=== PATIENT | male | born 1935 | race Caucasian/White ===

== ENCOUNTER → 2016-02-21 | Outpatient (CLI) | payer MEDICARE ==
[~2016-02-21] MED LIST: AC325T; AMLO10TA PO; ASP325T PO; CARV3.122 PO; DCS100C PO; FLUT16SP22 NS; FOLI0.8T PO; LRT10T PO; OMEP20CA12 PO; OMEP20CA6; ROFL500T PO; RT-ALBUINH IH; TIOT18CA IH
[2016-02-21 10:14] LABS: BASOPHILS % (AUTO) 0 % (0-10); EOSINOPHILS # (AUTO) 0.1 10^3/uL (0.0-0.3); EOSINOPHILS % (AUTO) 1 % (0-10); LYMPHOCYTES # (AUTO) 1.4 X 10^3 (1.0-4.0); LYMPHOCYTES % (AUTO) 7 % (12-44); MEAN CORPUSCULAR HEMOGLOBIN 32 PG (25-34); MEAN CORPUSCULAR HGB CONC 34 G/DL (32-36); MEAN CORPUSCULAR VOLUME 94 FL (80-99); MEAN PLATELET VOLUME 7.9 FL (7.4-10.4); MONOCYTES # (AUTO) 1.2 X 10^3 (0.0-1.0); MONOCYTES % (AUTO) 6 % (0-12); NEUTROPHILS # (AUTO) 17.2 X 10^3 (1.8-7.8); NEUTROPHILS % (AUTO) 86 % (42-75); PLATELET COUNT 373 10^3/uL (130-400); RED BLOOD COUNT 3.96 10^6/uL (4.35-5.85); RED CELL DISTRIBUTION WIDTH 12.8 % (10.0-14.5); WHITE BLOOD COUNT 19.9 10^3/uL (4.3-11.0)
[2016-02-21 10:27] LABS: BILIRUBIN,URINE NEGATIVE (NEGATIVE); KETONES,URINE NEGATIVE (NEGATIVE); LEUKOCYTE ESTERASE ,URINE NEGATIVE (NEGATIVE); NITRITE,URINE NEGATIVE (NEGATIVE); PH,URINE 6 (5-9); PROTEIN,URINE 1+ (NEGATIVE); UROBILINOGEN,URINE 1 MG/DL (NORMAL)
[2016-02-21 10:29] LABS: BAND NEUTROPHILS 1 %; BASOPHILS % (MANUAL) 0 %; EOSINOPHILS % (MANUAL) 0 %; LYMPHOCYTES % (MANUAL) 6 %; NEUTROPHILS % (MANUAL) 87 %
--- NOTE | 2016-02-21 10:29 | Diagnostic Imaging Report ---
INDICATION: Cough and shortness of breath. EXAMINATION: PA and lateral chest. FINDINGS: The heart size and pulmonary vascularity are normal. There is a wedge-shaped infiltrate in the left retrocardiac space. IMPRESSION: Wedge-shaped infiltrate in the posterior basal segment of the left lower lobe, suspicious for pneumonia. Dictated by: Dictated on workstation # [id number]
[2016-02-21 10:34] LABS: ALANINE AMINOTRANSFERASE 13 U/L (0-55); ALBUMIN 3.7 G/DL (3.2-4.5); ANION GAP 8 MMOL/L (5-14); ASPARTATE AMINO TRANSFERASE 11 U/L (5-34); BILIRUBIN,TOTAL 0.7 MG/DL (0.1-1.0); BLOOD UREA NITROGEN 16 MG/DL (7-18); BUN/CREATININE RATIO 18; CARBON DIOXIDE 27 MMOL/L (21-32); CHLORIDE 96 MMOL/L (98-107); GFR ESTIMATED > 60; GLUCOSE 104 MG/DL (70-105); SODIUM 131 MMOL/L (135-145); TOTAL PROTEIN 6.7 G/DL (6.4-8.2)
[2016-02-21 10:53] LABS: THYROID STIMULATING HORMONE 2.45 UIU/ML (0.35-4.94)
== END ==
LOC: RAD 09:41
PROVIDERS: ATTEND Nurse Practitioner Family
DX: I10 Essential (primary) hypertension (principal); R41.0 Disorientation, unspecified; R44.3 Hallucinations, unspecified
CPT/HCPCS: 36415; 71020; 80053; 81000; 84443; 85007; 85025; 85027

== ENCOUNTER → 2016-03-03 | Outpatient (CLI) | payer MEDICARE ==
[~2016-03-03] MED LIST changes: +CATHETER FLUSH 10 ML SYR IV PRN; +IOHEXOL 350 MG/ML 100 ML (OMNIPAQUE 350) VIAL IV ONE; +NS 100 ML (IVPB) BAG IV ONE
--- NOTE | 2016-03-03 11:22 | Diagnostic Imaging Report ---
CT scan of the head and neck performed without and with intravenous contrast. INDICATION: COPD. Confusion. 100 mL Omnipaque 350 administered intravenously. FINDINGS: CT head: The unenhanced phase demonstrates no intracranial hemorrhage. There is periventricular and deep white matter hypodensities compatible with chronic microvascular ischemic changes. No hydrocephalus. After contrast administration, no enhancing mass is seen. The calvarium appears grossly unremarkable. CT scan of the neck: There is a prominent calcified plaque seen in the carotid bifurcation and in the internal carotid arteries bilaterally. No significant stenosis on the left. There is suggestion of estimated 70% stenosis in the proximal right internal carotid artery about 2 cm from the bifurcation. This is not a CTA protocol exam, and correlation with carotid ultrasound might be helpful. The vertebral arteries are opacified on both sides with no obvious abnormalities. There are slight asymmetries in the buccopharyngeal space probably related to secretions with no definite mass seen. The vocal cords appear symmetric. There is normal appearance of the parotid and submandibular glands. The thyroid gland appears normal. There is no significant lymphadenopathy or mass along the cervical chain bilaterally. The osseous structures demonstrate mild degenerative changes in the cervical spine. The visualized paranasal sinuses appear grossly unremarkable. IMPRESSION: CT head: No intracranial hemorrhage. No enhancing mass. CT neck: 1. Suggestion of approximately 70% stenosis in the proximal right internal carotid artery. 2. No soft tissue mass or significantly enlarged lymph node seen. Dictated by: Dictated on workstation # [id number]
--- NOTE | 2016-03-03 13:03 | Diagnostic Imaging Report ---
PROCEDURE: CT chest with contrast only. TECHNIQUE: Multiple contiguous axial images were obtained through the chest after administration of intravenous contrast. INDICATION: COPD. Confusion. History of throat cancer. COMPARISON: CT chest of 09/23/2012. FINDINGS: There is upper lobe predominant emphysema. There is mild subsegmental consolidation seen in the left lower lobe in the dependent area favored to be atelectasis related. No suspicious nodule or lung mass is identified. Subpleural blebs are seen in the upper lobes. There is no pleural or pericardial effusion. The thoracic aorta is slightly ectatic with atherosclerotic changes. No aneurysm. No dissection. No mediastinal mass or significantly enlarged lymph nodes seen. No pericardial effusion. No axillary lymphadenopathy. Sections in the upper abdomen demonstrate a right adrenal mass measuring 3.7 x 4.9 cm slightly enlarged from 4.4 x 3.8 cm 09/23/2012. The minimal enlargement from 2013 exam is in favor of a benign etiology such as an atypical adenoma or pheochromocytoma. Indolent low-grade malignancy could be considered. The osseous structures appear grossly unremarkable. IMPRESSION: 1. Emphysema. Subsegmental focal consolidation in the left lower lobe is favored to be atelectasis related. 2. A 4.9 cm right adrenal mass enlarged from 2013 with measurement of 4.4 cm. The slow enlargement is in favor of benign etiology such as atypically large adenoma or pheochromocytoma. Indolent low-grade malignancy could be considered. Dictated by: Dictated on workstation # [id number]
== END ==
LOC: RAD 07:46
PROVIDERS: ATTEND Nurse Practitioner Family
DX: J44.9 Chronic obstructive pulmonary disease, unspecified (principal); R41.0 Disorientation, unspecified; I65.21 Occlusion and stenosis of right carotid artery; E27.9 Disorder of adrenal gland, unspecified
CPT/HCPCS: 70470; 70491; 71260

== ENCOUNTER → 2016-03-09 | Outpatient (CLI) | payer MEDICARE ==
[~2016-03-09] MED LIST changes: -CATHETER FLUSH 10 ML SYR IV PRN; -IOHEXOL 350 MG/ML 100 ML (OMNIPAQUE 350) VIAL IV ONE; -NS 100 ML (IVPB) BAG IV ONE
--- NOTE | 2016-03-09 15:39 | Diagnostic Imaging Report ---
PROCEDURE: US Carotid Duplex Bilateral. TECHNIQUE: Multiple real-time grayscale images were obtained over the carotid arteries in various projections bilaterally. Additional duplex Doppler and color Doppler images were also obtained. INDICATION: Carotid artery disease. FINDINGS: There are no prior carotid Doppler examinations available for comparison. However, the recent CT neck exam of 03/03/2016 did suggest 70% stenosis of the origin of the internal carotid artery on the right. On this study however, there does not appear to be hemodynamically significant stenosis of the origin of the internal carotid artery on the right. There does seem to be narrowing of the midportion of the internal carotid artery on the right but the flow velocities do not indicate a hemodynamically significant stenosis in this region. The flow velocities are as follows: Mid CCA right 202.2, left 109. Proximal ICA right 151, left 58.4. Mid ICA right 120, left 88.4. Distal ICA right 78.8, left 113. ICA/CCA right 0.75, left 1.0. Both vertebral arteries were identified and there was antegrade flow bilaterally. IMPRESSION: 1. There is atherosclerotic disease involving both carotid systems but there is no sign of a hemodynamically significant stenosis. In particular, there is no evidence for a stenosis of the internal carotid artery on the right which would coincide with the findings of the recent CT neck exam. Even so, I would concur with the findings of the CT neck exam that there is heavy hard plaque formation about the carotid bifurcation on the right. If clinical concern regarding a hemodynamically significant stenosis of the right internal carotid artery persists, then a conventional arteriogram should be considered for further study. 2. There is no sign of a hemodynamically significant stenosis of the left carotid system. 3. These results were discussed with YOGI Torres. Dictated by: Dictated on workstation # [id number]
== END ==
LOC: RAD 14:06
PROVIDERS: ATTEND Nurse Practitioner Family
DX: I65.23 Occlusion and stenosis of bilateral carotid arteries (principal)
CPT/HCPCS: 93880

== ENCOUNTER 2016-08-07 20:40 | Inpatient (IN) | payer MEDICARE ==
[~2016-08-07] VITALS: Ht 172.7 cm; Wt 63.5 kg
[~2016-08-07 20:40] MED LIST changes: +ACET-93 PO; +ALBU18HF2 INH; +AMLO5TAB2 PO; +AZIT250T12 PO; +BISA-65 PO; +BUDE10.2 IH; +BUDE10.2 INH; +CEFD300C3 PO; +DONE5TAB8 PO; +DVL125C PO; +FURO-125 PO; +IPRA3AMP NEB; +LACT1TAB6 PO; +LACT20SO2 PO; +LORA0.5T PO; +MAG30ORA2 PO; +MELA1TAB10 PO; +MENT71OI TP; +MONT10TA21 PO; +PANT40SU PO; +POLY17PO6 PO; +TAMS0.4C98 PO; +TRAZ-28 PO; +TRAZ100T92 PO
[2016-08-07] MEDS ORDERED: DEXAMETHASONE PF 10 MG/ML (DECADRON) VIAL ONE (20:49)
[2016-08-07] MEDS ORDERED: RT-ALBUTEROL/IPRATROPIUM 3 ML (DUONEB) VIAL ONE (20:49)
[2016-08-07 21:00] LABS: BASOPHILS % (AUTO) 0 % (0-10); EOSINOPHILS % (AUTO) 0 % (0-10); LYMPHOCYTES # (AUTO) 0.3 X 10^3 (1.0-4.0); LYMPHOCYTES % (AUTO) 2 % (12-44); MEAN CORPUSCULAR HEMOGLOBIN 30 PG (25-34); MEAN CORPUSCULAR HGB CONC 34 G/DL (32-36); MEAN CORPUSCULAR VOLUME 89 FL (80-99); MEAN PLATELET VOLUME 8.3 FL (7.4-10.4); MONOCYTES % (AUTO) 6 % (0-12); NEUTROPHILS # (AUTO) 17.6 X 10^3 (1.8-7.8); NEUTROPHILS % (AUTO) 92 % (42-75); PLATELET COUNT 431 10^3/uL (130-400); RED BLOOD COUNT 3.09 10^6/uL (4.35-5.85); RED CELL DISTRIBUTION WIDTH 13.6 % (10.0-14.5); WHITE BLOOD COUNT 19.1 10^3/uL (4.3-11.0)
[2016-08-07] MEDS ORDERED: RT-ALBUTEROL/IPRATROPIUM 3 ML (DUONEB) VIAL INH ONE (21:00)
[2016-08-07] MEDS ORDERED: DEXAMETHASONE 4 MG/ML SDV (DECADRON) IH ONE (21:00)
[2016-08-07] MEDS ORDERED: methylPREDNISolone 125 MG (Solu-MEDROL) VIAL IVP ONE (21:00)
[2016-08-07 21:01] LABS: MONOCYTES # (AUTO) 1.2 X 10^3 (0.0-1.0)
[2016-08-07 21:09] LABS: INR 1.2 (0.8-1.4); PROTHROMBIN TIME PATIENT 14.5 SEC (12.2-14.7)
[2016-08-07 21:12] LABS: ABG BASE EXCESS 1.2 MMOL/L (-2.5-2.5); ABG HCO3 24 MMOL/L (23-27); ABG OXYGEN SATURATION 95 % (94-100); ABG PCO2 29 MMHG (35-45); ABG PH 7.52 (7.37-7.43); ABG PO2 68 MMHG (79-93); ABG TCO2 24.9 MMOL/L (21.0-31.0)
[2016-08-07 21:13] LABS: ALLENS TEST YES-POS; PATIENT TEMP 97.6
--- NOTE | 2016-08-07 21:14 | ED Respiratory ---
General Chief Complaint: Respiratory Problems Stated Complaint: SOA Nursing Triage Note: SOA Source: patient (PT IS LIMITED HISTORIAN--HAS HISTORY OF DEMENTIA), EMS, old records History of Present Illness Time seen by provider: 20:49 Initial Comments PT ARRIVES VIA EMS [facility] C/O SHORTNESS OF BREATH PT HAS HISTORY OF CHF AND COPD, AND HAD OUTPATIENT CXR TODAY, AND LASIX WAS INCREASED TO 40 MG, AND POTASSIUM WAS INCREASED TO 40 MG PT DENIES CHEST PAIN DENIES LEG SWELLING NO KNOWN FEVER NO SIGNIFICANT COUGH PT WAS ADMITTED 07/29-08/02 FOR CHF AND PNEUMONIA EMS REPORT THAT INITIAL O2 SAT WAS 88%, AND [facility] RESPONDERS PLACED ON 15L/NRB AND O2 SAT UP TO 93%, EMS PLACED PT ON CPAP AND O2 SAT UP TO 99% PT STATES BREATHING IS BETTER WITH CPAP PCP: DR. HARKINS Allergies and Home Medications Allergies Coded Allergies: prednisone (Unverified Allergy, Mild, SOB, 09/15/08) Home Medications Acetaminophen 500 Mg Tablet, 500 MG PO BID PRN for PAIN-MILD, (Reported) Acetaminophen 500 Mg Tablet, 1,000 MG PO Q8H PRN for TEMP<100.5/SEVERE PAIN, ( Reported) Albuterol Sulfate 18 Gm Hfa.aer.ad, 2 PUFF INH QID PRN for SHORTNESS OF BREATH, (Reported) Amlodipine Besylate 5 Mg Tablet, 5 MG PO BID, (Reported) Aspirin 325 Mg Tab, 325 MG PO DAILY, (Reported) Azithromycin 250 Mg Tablet, 250 MG PO DAILY, #4 Prescribed by: KEVIN HARKINS on 08/02/16913 Bisacodyl 5 Mg Tablet.dr, 5 MG PO HS PRN for CONSTIPATION-4TH LINE, (Reported) Budesonide/Formoterol Fumarate 10.2 Gm Hfa.aer.ad, 2 PUFF IH BID for 30 Days, #1 Prescribed by: KEVIN HARKINS on 08/02/16913 Carvedilol 3.125 Mg Tablet, 3.125 MG PO BID, (Reported) Cefdinir 300 Mg Capsule, 300 MG PO BID for 5 Days, #10 Prescribed by: KEVIN HARKINS on 08/02/1614 Divalproex Sodium 125 Mg Cap, 125 MG PO Q6H PRN for AGITATION, (Reported) Donepezil HCl 5 Mg Tablet, 5 MG PO DAILY, (Reported) Furosemide 20 Mg Tablet, 20 MG PO UD for 30 Days, #30 PT TO TAKE LASIX THREE TIMES A WEEK - SUNDAY, SUNDAY, SUNDAY SCHEDULED Prescribed by: KEVIN HARKINS on 08/02/16 0914 Ipratropium/Albuterol Sulfate 3 Ml Ampul.neb, 3 ML IH Q12H, (Reported) Lactobacillus Acidophilus 1 Each Tab.chew, 1 EACH PO TID for 10 Days, #30 Prescribed by: KEVIN HARKINS on 08/02/16 0919 Lactulose 20 Gm/30 Ml Solution, 20 GM PO BID, (Reported) Lorazepam 0.5 Mg Tablet, 0.5 MG PO Q4H PRN for MILD AGITATION, (Reported) Lorazepam 0.5 Mg Tablet, 1 MG PO Q4H PRN for SEVERE AGITATION/AGGRESSIVE, ( Reported) TAKES 2 (0.5MG) TABLETS Mag Hydrox/Al Hydrox/Simeth 30 Ml Oral.susp, 30 ML PO Q4H PRN for INDIGESTION, ( Reported) Melatonin/Pyridoxine 1 Each Tablet, 6 MG PO HS, (Reported) TAKES 2 (3MG) TABLETS Menthol/Lanolin/Calamine/Znox 71 Gm Oint, TP QID PRN for EXCORIATION, (Reported) Montelukast Sodium 10 Mg Tablet, 10 MG PO DAILY, (Reported) Pantoprazole Sodium 40 Mg Granpkt.dr, 40 MG PO DAILY, (Reported) Polyethylene Glycol 3350 17 Gm Powd.pack, 17 GM PO Q3H PRN for CONSTIPATION-2ND LINE, (Reported) Tamsulosin HCl 0.4 Mg Cap, 0.4 MG PO 1800, (Reported) Trazodone HCl 50 Mg Tablet, 125 MG PO HS, (Reported) TAKES 2 & 1/2 (50MG) TABLETS Constitutional: see HPI Respiratory: see HPI, short of breath Cardiovascular: No chest pain, No edema Gastrointestinal: no symptoms reported Musculoskeletal: no symptoms reported Skin: no symptoms reported Psychiatric/Neurological: See HPI (DEMENTIA) Hematologic/Lymphatic: No Symptoms Reported Past Faklmgx-Pohtfa-Tlhkrz Hx Patient Social History Alcohol Use: Denies Use Recreational Drug Use: No Smoking Status: Former Smoker Type Used: Cigarettes 2nd Hand Smoke Exposure: No Recent Foreign Travel: No Contact w/Someone Who Travel: No Recent Infectious Disease Expo: No Recent Hopitalizations: No Immunizations Up To Date Tetanus Booster (TDap): Unknown Date of Pneumonia Vaccine: Nov 11, 2009 Date of Influenza Vaccine: Dec 28, 2012 Seasonal Allergies Seasonal Allergies: Yes Surgeries HX Surgeries: Yes (HERNIA REPAIR; SKIN CANCER REMOVALS) Surgeries: Abdominal, Gallbladder Respiratory Hx Respiratory Disorders: Yes (CHRONIC COUGH) Respiratory Disorders: COPD Cardiovascular Hx Cardiac Disorders: Yes (CHF) Cardiac Disorders: High Cholesterol, Hypertension, Syncope Neurological Hx Neurological Disorders: Yes (seizure in past, syncope) Neurological Disorders: Dementia, Seizure Disorder Reproductive System Hx Reproductive Disorders: No Sexually Transmitted Disease: No Genitourinary Hx Genitourinary Disorders: No Gastrointestinal Hx Gastrointestinal Disorders: Yes (gall bladder removed) Gastrointestinal Disorders: Gastroesophageal Reflux, Chronic Constipation Musculoskeletal Hx Musculoskeletal Disorders: Yes (fractured rib) Endocrine Hx Endocrine Disorders: No HEENT HX ENT Disorders: Yes HEENT Disorders: Cataract Loss of Vision: Denies Cancer Hx Cancer: Yes (throat) Cancer: Skin Psychosocial Hx Psychiatric Problems: Yes Behavioral Health Disorders: Sleep Difficulties, Anxiety Integumentary HX Skin/Integumentary Disorder: Yes (skin cancer lesions-several removed) Blood Transfusions Hx Blood Disorders: No Family Medical History Family Medial History: Cancer 03 FATHER (lung cancer) grandfather (possibly stomach cancer) Family history: Cardiovascular disease 09 BROTHER Family history: Hypertension 09 BROTHER Heart disease 09 BROTHER Myocardial infarction 09 BROTHER No Family History of: Abdominal aortic aneurysm Joaquin's disease Alcoholism Aphasia Cancer of colon Cataract Chest pain Congenital heart disease Congestive heart failure Cystic fibrosis Dementia Dysphagia Family history: Allergy Family history: Alzheimer's disease Family history: Arthritis Family history: Asthma Family history: Breast disease Family history: Coronary thrombosis Family history: Diabetes mellitus Family history: Gastrointestinal disease Family history: Glaucoma Family history: Osteoporosis Family history: Thyroid disorder Hearing loss Hereditary disease History of - anemia History of - disorder History of - respiratory disease History of drug abuse Human immunodeficiency virus (HIV) seropositivity Hypercholesterolemia Infertile Kidney disease Malignant neoplasm of lung Parkinson's disease Prostate cancer Psychotic disorder Seizure disorder Stroke Tuberculosis Visual impairment Physical Exam Vital Signs Vital Sign - Last 12Hours 08/07/16 08/07/16 08/07/16 20:45 20:55 21:06 Temp 97.6 Pulse 81 Resp 32 B/P (MAP) 114/43 Pulse Ox 95 O2 Delivery Bi-pap O2 Flow Rate 45.00 FiO2 45 Capillary Refill : Less Than 3 Seconds General Appearance: WD/WN, no apparent distress, other (CPAP IN PLACE ON ARRIVAL) Neck: normal inspection Respiratory: no respiratory distress, no accessory muscle use, decreased breath sounds (LUNG SOUNDS DIMINISHED IN ALL LUNG BANUELOS) Cardiovascular: regular rate, rhythm, no edema, no JVD, no murmur Gastrointestinal: non tender, soft Extremities: normal inspection, no pedal edema, no calf tenderness, normal capillary refill Neurologic/Psychiatric: 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 SOMEWHAT AGITATED--FAMILY REPORTS IS NORMAL FOR HIM AND IS AT NORMAL BASELINE. ) Skin: normal color, warm/dry Focused Exam Lactic Acid Level Laboratory Tests Test 08/07/16 21:23 Lactic Acid Level 2.00 MMOL/L (0.50-2.00) Progress/Results/Core Measures Results/Orders Lab Results Laboratory Tests Test 08/07/16 20:50 08/07/16 21:05 08/07/16 21:23 Range/Units White Blood Count 19.1 H 4.3-11.0 10^3/uL Red Blood Count 3.09 L 4.35-5.85 10^6/uL Hemoglobin 9.4 L 13.3-17.7 G/DL Hematocrit 28 L 40-54 % Mean Corpuscular Volume 89 80-99 FL Mean Corpuscular Hemoglobin 30 25-34 PG Mean Corpuscular Hemoglobin Concent 34 32-36 G/DL Red Cell Distribution Width 13.6 10.0-14.5 % Platelet Count 431 H 130-400 10^3/uL Mean Platelet Volume 8.3 7.4-10.4 FL Neutrophils (%) (Auto) 92 H 42-75 % Lymphocytes (%) (Auto) 2 L 12-44 % Monocytes (%) (Auto) 6 0-12 % Eosinophils (%) (Auto) 0 0-10 % Basophils (%) (Auto) 0 0-10 % Neutrophils # (Auto) 17.6 H 1.8-7.8 X 10^3 Lymphocytes # (Auto) 0.3 L 1.0-4.0 X 10^3 Monocytes # (Auto) 1.2 H 0.0-1.0 X 10^3 Eosinophils # (Auto) 0.0 0.0-0.3 10^3/uL Basophils # (Auto) 0.0 0.0-0.1 10^3/uL Neutrophils % (Manual) 96 % Lymphocytes % (Manual) 2 % Monocytes % (Manual) 1 % Eosinophils % (Manual) 0 % Basophils % (Manual) 0 % Band Neutrophils 1 % Blood Morphology Comment NORMAL Prothrombin Time 14.5 12.2-14.7 SEC INR Comment 1.2 0.8-1.4 Activated Partial Thromboplast Time 30 24-35 SEC B-Type Natriuretic Peptide 367.1 H <100.0 PG/ML Blood Gas Puncture Site RT RADIAL Blood Gas Patient Temperature 97.6 Arterial Blood pH 7.52 H 7.37-7.43 Arterial Blood Partial Pressure CO2 29 L 35-45 MMHG Arterial Blood Partial Pressure O2 68 L 79-93 MMHG Arterial Blood HCO3 24 23-27 MMOL/L Arterial Blood Total CO2 24.9 21.0-31.0 MMOL/L Arterial Blood Oxygen Saturation 95 94-100 % Arterial Blood Base Excess 1.2 -2.5-2.5 MMOL/L [place] Test YES-POS Blood Gas Ventilator Setting NO Blood Gas Inspired Oxygen 45 BIPAP Sodium Level 128 L 135-145 MMOL/L Potassium Level 3.4 L 3.6-5.0 MMOL/L Chloride Level 94 L 98-107 MMOL/L Carbon Dioxide Level 21 21-32 MMOL/L Anion Gap 13 5-14 MMOL/L Blood Urea Nitrogen 20 H 7-18 MG/DL Creatinine 0.79 0.60-1.30 MG/DL Estimat Glomerular Filtration Rate > 60 BUN/Creatinine Ratio 25 H 0-20 Glucose Level 206 H 70-105 MG/DL Lactic Acid Level 2.00 0.50-2.00 MMOL/L Calcium Level 7.9 L 8.5-10.1 MG/DL Magnesium Level 1.8 1.8-2.4 MG/DL Total Bilirubin 0.6 0.1-1.0 MG/DL Aspartate Amino Transf (AST/SGOT) 25 5-34 U/L Alanine Aminotransferase (ALT/SGPT) 38 0-55 U/L Alkaline Phosphatase 80 40-136 U/L Total Creatine Kinase 59 30-200 U/L Creatine Kinase MB 2.0 <6.6 NG/ML Troponin I < 0.30 <0.30 NG/ML Total Protein 5.7 L 6.4-8.2 GM/DL Albumin 2.8 L 3.2-4.5 GM/DL My Orders Orders - CESARFAITH Laws DO Saline Lock/Iv-Start (08/07/16 20:53) Ekg Tracing (08/07/16 20:53) O2 (08/07/16 20:53) Monitor-Rhythm Ecg Trace Only (08/07/16 20:53) Arterial Blood Gas (08/07/16 20:53) BNP (08/07/16 20:53) Cbc With Automated Diff (08/07/16 20:53) Comprehensive Metabolic Panel (08/07/16 20:53) Creatine Kinase (08/07/16 20:53) Creatine Kinase Mb (08/07/16 20:53) Lactic Acid Analyzer (08/07/16 20:53) Magnesium (08/07/16 20:53) Protime With Inr (08/07/16 20:53) Partial Thromboplastin Time (08/07/16 20:53) Troponin I (08/07/16 20:53) Blood Culture (08/07/16 20:53) Chest 1 View, Ap/Pa Only (08/07/16 20:53) Albuterol/Ipra Inhalation Soln (Duoneb I (08/07/16 21:00) Dexamethasone Injection (Decadron Inject (08/07/16 21:00) Rt Request For Service (08/07/16 20:53) Svn Sm Volume Nebulizer Rt-Rfs (08/07/16 20:53) Methylprednisolone Sod Succ (Solu-Medrol (08/07/16 21:00) Dexamethasone Pf Injection (Decadron Pf (08/07/16 20:49) Albuterol/Ipra Inhalation Soln (Duoneb I (08/07/16 20:49) Manual Differential (08/07/16 20:50) Furosemide Injection (Lasix Injection) (08/07/16 21:30) Medications Given in ED Current Medications Medications Dose Ordered Sig/Jarrett Route Start Time Stop Time Status Last Admin Dose Admin Dexamethasone Sodium Phosphate 10 mg STK-MED ONCE .ROUTE 08/07/16 20:49 08/07/16 20:55 DC 08/07/16 21:05 30 MG Methylprednisolone Sodium Succinate 125 mg ONCE ONCE IVP 08/07/16 21:00 08/07/16 21:01 DC 08/07/16 21:08 125 MG Vital Signs/I&O Vital Sign - Last 12Hours 08/07/16 08/07/16 08/07/16 08/07/16 20:45 20:55 21:06 21:24 Temp 97.6 Pulse 81 81 74 Resp 32 26 25 B/P (MAP) 114/43 Pulse Ox 95 98 96 O2 Delivery Bi-pap Room Air O2 Flow Rate 45.00 45.00 FiO2 45 Blood Pressure Mean: 66 Progress Note : Progress Note PT PLACED ON BIPAP AND GIVEN NEB TREATMENT, ALSO GIVEN LASIX AND SOLU-MEDROL. AND O2 SATS REMAINED IN LOW 90'S BP AND HEART RATE REMAINED STABLE NO DETERIORATION IN PT'S CONDITION DURING ER STAY ECG Initial ECG Impression Time: 20:51 Initial ECG Rate: 82 Initial ECG Rhythm: Normal Sinus (IVCD) Initial ECG Comparisson: Unchanged Diagnostic Imaging Comments CXR--DIFFUSE BILATERAL EDEMA AND / OR INFILTRATES--PER RADIOLOGIST REPORT @ 2124 Reviewed: Reviewed by Me Departure Communication Family Conversation DISCUSSED POOR CONDITION/PROGNOSIS WITH FAMILY, AND THEY APPEAR TO UNDERSTAND. Progress Notes 2124--SPOKE WITH DR. HARKINS, ACCEPTS PT FOR ADMIT. Impression Impression: Primary Impression: Respiratory failure with hypoxia Additional Impressions: CHF (congestive heart failure) Pneumonia COPD (chronic obstructive pulmonary disease) Dementia Electrolyte imbalance Hyperglycemia Disposition: 09 ADMITTED INPATIENT Condition: Improved Decision to Admit Reason: Admit from ER (General) Decision to Admit/Date: Aug 07, 2016 Time/Decision to Admit Time: 21:25 Departure-Patient Inst. Referrals: KEVIN HARKINS MD (PCP/Family) Primary Care Physician FAITH GUERRERO DO Aug 07, 2016 21:14
[2016-08-07 21:18] LABS: BAND NEUTROPHILS 1 %; BASOPHILS % (MANUAL) 0 %; EOSINOPHILS % (MANUAL) 0 %; LYMPHOCYTES % (MANUAL) 2 %; NEUTROPHILS % (MANUAL) 96 %
--- NOTE | 2016-08-07 21:28 | Diagnostic Imaging Report ---
INDICATION: Shortness of air. COMPARISON: 07/31/16. FINDINGS: Development of diffuse bilateral heterogeneous consolidations which are superimposed on chronic interstitial changes. No pleural effusion or pneumothorax. Grossly stable cardiomediastinal silhouette. IMPRESSION: 1. Development of multifocal heterogeneous airspace opacities superimposed on chronic lung disease. Findings are likely due to multifocal pneumonia versus pulmonary edema, depending on the clinical scenario. Dictated by: Dictated on workstation # [id number]
[2016-08-07] MEDS ORDERED: FUROSEMIDE 40 MG/4 ML INJ (LASIX) IVP ONE (21:30)
[2016-08-07] MEDS ORDERED: cefTRIAXone INJECTION 1,000 MG in NS (IVPB) 50 ML IV ONE (21:45)
[2016-08-07 21:52] LABS: ALANINE AMINOTRANSFERASE 38 U/L (0-55); ALBUMIN 2.8 GM/DL (3.2-4.5); ANION GAP 13 MMOL/L (5-14); ASPARTATE AMINO TRANSFERASE 25 U/L (5-34); BILIRUBIN,TOTAL 0.6 MG/DL (0.1-1.0); BLOOD UREA NITROGEN 20 MG/DL (7-18); BUN/CREATININE RATIO 25 (0-20); CALCIUM 7.9 MG/DL (8.5-10.1); CARBON DIOXIDE 21 MMOL/L (21-32); CHLORIDE 94 MMOL/L (98-107); CREATINE KINASE 59 U/L (30-200); CREATININE SERUM 0.79 MG/DL (0.60-1.30); GFR ESTIMATED > 60; GLUCOSE 206 MG/DL (70-105); HEMOLYSIS 5 (-100-29); ICTERUS 0.5 (-100-1.9); LIPEMIA 0 (-100-49); MAGNESIUM 1.8 MG/DL (1.8-2.4); POTASSIUM 3.4 MMOL/L (3.6-5.0); SODIUM 128 MMOL/L (135-145); TOTAL PROTEIN 5.7 GM/DL (6.4-8.2)
[2016-08-07 21:59] LABS: TROPONIN I < 0.30 NG/ML (<0.30)
[2016-08-07 22:09] VITALS: BP 162/86
[2016-08-07 22:15] VITALS: BP 164/76
[2016-08-07 22:30] VITALS: BP 152/73
[2016-08-07] MEDS ORDERED: LEVOFLOXACIN 750 MG/D5W 150 ML PRE-MIX IV SCH (22:30)
[2016-08-07 22:45] VITALS: BP 150/70
[2016-08-07 23:00] VITALS: BP 117/67
[2016-08-07 23:15] VITALS: BP 114/82
[2016-08-08] VITALS (24 sets, daily range): BP systolic 102–166; BP diastolic 46–93
[2016-08-08] MEDS: RT-ALBUTEROL/IPRATROPIUM 3 ML (DUONEB) VIAL INH SCH ×6 (01:20→22:24)
[2016-08-08] MEDS ORDERED: FUROSEMIDE 40 MG/4 ML INJ (LASIX) IV SCH ×2 (03:00→21:00)
[2016-08-08] MEDS: methylPREDNISolone 125 MG (Solu-MEDROL) VIAL IV SCH ×3 (03:23→17:37)
[2016-08-08 04:26] LABS: BASOPHILS % (AUTO) 0 % (0-10); EOSINOPHILS % (AUTO) 0 % (0-10); LYMPHOCYTES # (AUTO) 0.8 X 10^3 (1.0-4.0); LYMPHOCYTES % (AUTO) 5 % (12-44); MEAN CORPUSCULAR HEMOGLOBIN 30 PG (25-34); MEAN CORPUSCULAR HGB CONC 34 G/DL (32-36); MEAN CORPUSCULAR VOLUME 89 FL (80-99); MEAN PLATELET VOLUME 8.5 FL (7.4-10.4); MONOCYTES # (AUTO) 0.3 X 10^3 (0.0-1.0); MONOCYTES % (AUTO) 2 % (0-12); NEUTROPHILS # (AUTO) 14.2 X 10^3 (1.8-7.8); NEUTROPHILS % (AUTO) 93 % (42-75); PLATELET COUNT 412 10^3/uL (130-400); RED BLOOD COUNT 3.18 10^6/uL (4.35-5.85); RED CELL DISTRIBUTION WIDTH 13.7 % (10.0-14.5); WHITE BLOOD COUNT 15.3 10^3/uL (4.3-11.0)
[2016-08-08 04:49] LABS: ALANINE AMINOTRANSFERASE 42 U/L (0-55); ALBUMIN 3.2 GM/DL (3.2-4.5); ANION GAP 16 MMOL/L (5-14); ASPARTATE AMINO TRANSFERASE 25 U/L (5-34); BILIRUBIN,TOTAL 0.9 MG/DL (0.1-1.0); BLOOD UREA NITROGEN 19 MG/DL (7-18); BUN/CREATININE RATIO 23 (0-20); CALCIUM 8.5 MG/DL (8.5-10.1); CARBON DIOXIDE 21 MMOL/L (21-32); CHLORIDE 94 MMOL/L (98-107); CREATININE SERUM 0.81 MG/DL (0.60-1.30); GFR ESTIMATED > 60; GLUCOSE 146 MG/DL (70-105); HEMOLYSIS 2 (-100-29); ICTERUS 0.7 (-100-1.9); LIPEMIA 3 (-100-49); SODIUM 131 MMOL/L (135-145); TOTAL PROTEIN 6.6 GM/DL (6.4-8.2)
[2016-08-08] MEDS ORDERED: KCL 20 MEQ TAB (K-DUR) PO ONE (07:00)
--- NOTE | 2016-08-08 08:37 | History & Physicial ---
History of Present Illness History of Present Illness Reason for visit/HPI PT IS AN 81 Y/O MALE WHO WAS RECENTLY ADMITTED TO THE HOSPITAL WITH HEART FAILURE. HE WAS AT HIS [facility] AND STARTED TO HAVE ACUTE SHORTNESS OF BREATH. HE WAS AFEBRILE, BUT HAD OXYGEN SATURATION IN THE 70'S AND WAS TRANSPORTED TO THE HOSPITAL FOR FURTHER EVALUATION. HE WAS FOUND TO HAVE HYPOXEMIA, HEART FAILURE AND WAS THUS RE-ADMITTED TO THE HOSPITAL Date of Admission Aug 07, 2016 at 21:25 Time Seen by Provider: 08:12 I consulted on this patient on 08/08/16 08:37 Attending Physician Kevin Grimes MD Admitting Physician Kevin Grimes MD Consult Allergies and Home Medications Allergies Coded Allergies: prednisone (Unverified Allergy, Mild, SOB, 09/15/08) Home Medications Acetaminophen 500 Mg Tablet, 500 MG PO BID PRN for PAIN-MILD, (Reported) Acetaminophen 500 Mg Tablet, 1,000 MG PO Q8H PRN for TEMP>100.5/SEVERE PAIN, ( Reported) Albuterol Sulfate 18 Gm Hfa.aer.ad, 2 PUFF INH QID PRN for SHORTNESS OF BREATH, (Reported) Amlodipine Besylate 5 Mg Tablet, 5 MG PO BID, (Reported) Aspirin 325 Mg Tab, 325 MG PO DAILY, (Reported) Bisacodyl 5 Mg Tablet.dr, 5 MG PO HS PRN for CONSTIPATION-4TH LINE, (Reported) Budesonide/Formoterol Fumarate 10.2 Gm Hfa.aer.ad, 2 PUFF IH BID, (Reported) Carvedilol 3.125 Mg Tablet, 3.125 MG PO BID, (Reported) Divalproex Sodium 125 Mg Cap, 125 MG PO Q6H PRN for AGITATION, (Reported) Donepezil HCl 5 Mg Tablet, 5 MG PO DAILY, (Reported) Furosemide 20 Mg Tablet, 20 MG PO MoWeFr, (Reported) Ipratropium/Albuterol Sulfate 3 Ml Ampul.neb, 3 ML NEB QID, (Reported) Ipratropium/Albuterol Sulfate 3 Ml Ampul.neb, 3 ML NEB Q6H PRN for SHORTNESS OF BREATH, (Reported) Lactobacillus Acidophilus 1 Each Capsule, 1 CAP PO TID for 10 Days, (Reported) END DATE 08-13-16 Lactulose 20 Gm/30 Ml Solution, 20 GM PO BID, (Reported) Lorazepam 0.5 Mg Tablet, 0.5 MG PO Q4H PRN for MILD AGITATION, (Reported) Lorazepam 0.5 Mg Tablet, 1 MG PO Q4H PRN for SEVERE AGITATION/AGGRESSIVE, ( Reported) TAKES 2 (0.5MG) TABLETS Mag Hydrox/Al Hydrox/Simeth 30 Ml Oral.susp, 30 ML PO Q4H PRN for INDIGESTION, ( Reported) Melatonin/Pyridoxine 1 Each Tablet, 6 MG PO HS, (Reported) TAKES 2 (3MG) TABLETS Menthol/Lanolin/Calamine/Znox 71 Gm Oint, TP QID PRN for EXCORIATION, (Reported) Montelukast Sodium 10 Mg Tablet, 10 MG PO DAILY, (Reported) Pantoprazole Sodium 40 Mg Tablet.dr, 40 MG PO DAILY, (Reported) Polyethylene Glycol 3350 17 Gm Powd.pack, 17 GM PO Q3H PRN for CONSTIPATION-2ND LINE, (Reported) Tamsulosin HCl 0.4 Mg Cap, 0.4 MG PO 1800, (Reported) Trazodone HCl 50 Mg Tablet, 125 MG PO HS, (Reported) TAKES 2 & 1/2 (50MG) TABLETS Past Veolmiq-Qxpnlf-Ardmoz Hx Patient Social History Marrital Status: Living Status: LIVES AT [facility] Alcohol Use: Denies Use Recreational Drug Use: No Smoking Status: Former Smoker Type Used: Cigarettes 2nd Hand Smoke Exposure: No Physical Abuse Screen: No Sexual Abuse: No Recent Foreign Travel: No Contact w/other who traveled: No Recent Hopitalizations: Yes Recent Infectious Disease Expo: No Immunizations Up To Date Tetanus Booster (TDap): Unknown Date of Pneumonia Vaccine: Nov 11, 2009 Date of Influenza Vaccine: Dec 28, 2012 Seasonal Allergies Seasonal Allergies: Yes Surgeries HX Surgeries: Yes (HERNIA REPAIR; SKIN CANCER REMOVALS) Surgeries: Abdominal, Gallbladder Respiratory Hx Respiratory Disorders: Yes (CHRONIC COUGH) Cardiovascular Hx Cardiovascular Disorders: Yes (CHF) Cardiac Disorders: High Cholesterol, Hypertension, Syncope Neurological Hx Neurological Disorders: Yes (seizure in past, syncope) Neurological Disorders: Dementia, Seizure Disorder Reproductive System Hx Reproductive Disorders: No Sexually Transmitted Disease: No Genitourinary Hx Genitourinary Disorders: No Gastrointestinal Hx Gastrointestinal Disorders: Yes (gall bladder removed) Gastrointestinal Disorders: Gastroesophageal Reflux, Chronic Constipation Musculoskeletal Hx Musculoskeletal Disorders: Yes (fractured rib) Endocrine Hx Endocrine Disorders: No HEENT HX ENT Disorders: Yes HEENT Disorders: Cataract Loss of Vision: Denies Cancer Hx Cancer: Yes (throat) Cancer: Lung, Skin Psychosocial Hx Psychiatric Problems: Yes Behavioral Health Disorders: Sleep Difficulties, Anxiety Integumentary HX Skin/Integumentary Disorder: Yes (skin cancer lesions-several removed) Blood Transfusions Hx Blood Disorders: No Adverse Reaction to a Blood Tr: No Reviewed Nursing Assessment Reviewed/Agree w Nursing PMH: Yes Family Medical History Significant Family History: Heart Disease, Cancer, Hypertension Family Hx: Cancer 03 FATHER (lung cancer) grandfather (possibly stomach cancer) Family history: Cardiovascular disease 09 BROTHER Family history: Hypertension 09 BROTHER Heart disease 09 BROTHER Myocardial infarction 09 BROTHER No Family History of: Abdominal aortic aneurysm Joaquin's disease Alcoholism Aphasia Cancer of colon Cataract Chest pain Congenital heart disease Congestive heart failure Cystic fibrosis Dementia Dysphagia Family history: Allergy Family history: Alzheimer's disease Family history: Arthritis Family history: Asthma Family history: Breast disease Family history: Coronary thrombosis Family history: Diabetes mellitus Family history: Gastrointestinal disease Family history: Glaucoma Family history: Osteoporosis Family history: Thyroid disorder Hearing loss Hereditary disease History of - anemia History of - disorder History of - respiratory disease History of drug abuse Human immunodeficiency virus (HIV) seropositivity Hypercholesterolemia Infertile Kidney disease Malignant neoplasm of lung Parkinson's disease Prostate cancer Psychotic disorder Seizure disorder Stroke Tuberculosis Visual impairment Constitutional: No chills, No fever, malaise, weakness EENTM: hoarseness (CHRONIC), No nose pain, No throat pain Respiratory: cough, dyspnea on exertion, short of breath Cardiovascular: No chest pain, edema, No palpitations Gastrointestinal: No abdominal pain Genitourinary: no symptoms reported Musculoskeletal: muscle weakness Skin: No change in color, No rash Psychiatric/Neurological: Denies Anxiety, Weakness, Other (DEMENTIA WITH BEHAVIORS) All Other Systems Reviewed Negative Unless Noted: Yes Physical Exam Vital Signs Vital Sign - Last 12Hours 08/07/16 08/07/16 08/07/16 20:45 20:55 21:06 Temp 97.6 Pulse 81 Resp 32 B/P (MAP) 114/43 Pulse Ox 95 O2 Delivery Bi-pap O2 Flow Rate 45.00 FiO2 45 Capillary Refill : Less Than 3 Seconds General Appearance: No Apparent Distress, WD/WN HEENT: PERRL/EOMI, Pharynx Normal Neck: Full Range of Motion, Supple Respiratory: Chest Non Tender, Crackles, Decreased Breath Sounds Cardiovascular: Regular Rate, Rhythm, Other (TRACE EDEMA BILATERAL LOWER LEGS) Gastrointestinal: Normal Bowel Sounds, No Organomegaly, No Pulsatile Mass, Non Tender, Soft Rectal: Deferred Back: Normal Inspection Extremity: Non Tender, No Calf Tenderness, Pedal Edema Neurologic/Psychiatric: Alert, Disoriented x3 Skin: Warm/Dry Assessment/Plan Assessment and Plan ACUTE PULMONARY EDEMA PNEUMONIA COPD ANEMIA CHF HX OF THROAT CANCER DEMENTIA WITH BEHAVIORS HYPOKALEMIA HYPOXEMIA HYPERTENSION CONSTIPATION POSSIBLE ILEUS BPH INSOMNIA PNEUMONIA WITH CHRONIC COPD - CHEST XRAY SHOWED PT HAS PNEUMONIA - CONTINUE WITH CURRENT ANTIBIOTICS CHF/PULMONARY EDEMA - CONTINUE WITH LASIX - MONITOR BNP TOMORROW. ANEMIA - - MONITOR CBC TOMORROW. HX OF THROAT CANCER- SUPPORTIVE CARE DEMENTIA WITH BEHAVIORS - CONTINUE WITH ARICEPT AND SUPPORTIVE CARE FOR THE PATIENT, HE WILL RETURN TO THE LONG TERM ON DISCHARGE. HYPOKALEMIA - TREAT WITH IV POTASSIUM SUPPLEMENTATION. HYPOXEMIA - IMPROVED ON CURRENT OXYGEN THERAPY - START INCENTIVE SPIROMETRY HYPERTENSION - CHRONIC - MONITOR BLOOD PRESSURE READINGS. RECENT CONSTIPATION - -MONITOR SYMPTOMS BPH - PT ON FLOMAX AT HOME, IN HOSPITAL ON ALFUZOSIN. INSOMNIA - ON MELATONIN PT NOT SEPTIC - THEREFORE DID NOT START ON SEPSIS PROTOCOL WITH FLUIDS - PT HAS ACUTE PULMONARY EDEMA AND STARTING ON IV FLUIDS AT SEPSIS PROTOCOL RATE WOULD HAVE CAUSED WORSENING PULMONARY EDEMA AND POSSIBLE PATIENT DEMISE. Problems: Admission Diagnosis PNEUMONIA COPD ANEMIA CHF HX OF THROAT CANCER DEMENTIA WITH BEHAVIORS HYPOKALEMIA HYPOXEMIA HYPERTENSION CONSTIPATION BPH INSOMNIA Clinical Quality Measures DVT/VTE Risk/Contraindication: Risk Factor Score Per Nursin RFS Level Per Nursing on Admit: 4+=Very High KEVIN GRIMES MD Aug 08, 2016 08:37
[2016-08-08] MEDS ORDERED: IPRA3AMP NEB (09:29)
[2016-08-08] MEDS ORDERED: PANT40TA3 PO (09:29)
[2016-08-08] MEDS ORDERED: LACT1CAP8 PO (09:29)
[2016-08-08] MEDS ORDERED: BUDE10.2 IH (09:29)
[2016-08-08] MEDS ORDERED: FURO20TA4 PO (09:34)
[2016-08-08] MEDS ORDERED: CALC-823 PO (09:37)
--- OUTSIDE RECORDS SUMMARY | 2016-08-08 09:39 | XMS REPORT | Continuity of Care Document ---
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 01/02/2012 Ot 285.9 ANEMIA NOS 07/07/2012 Ot 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 07/07/2012 Ot 285.9 ANEMIA NOS 03/28/2013 SHAHANA EUGENE, KEVIN Dixon Ot 305.1 TOBACCO USE DISORDER 03/28/2013 SHAHANA EUGENE, KEVIN Dixon Ot 401.9 HYPERTENSION NOS 03/28/2013 SHAHANA EUGENE, KEVIN Dixon Ot 477.9 ALLERGIC RHINITIS NOS 03/28/2013 SHAHANA EUGENE, KEVIN Dixon Ot 496 CHR AIRWAY OBSTRUCT NEC 03/28/2013 SHAHANA EUGENE, KEVIN Dixon Ot 530.81 ESOPHAGEAL REFLUX 06/30/2013 GIULIANO WRIGHT DO Ot 496 CHR AIRWAY OBSTRUCT NEC 10/29/2014 SAMIR SHERIDAN SUPERVISOR [employer] Ot 496 10/29/2014 SAMIR SHERIDAN SUPERVISOR [employer] Ot V10.20 10/29/2014 SAMIR SHERIDAN SUPERVISOR [employer] Ot V58.69 10/29/2014 SAMIR SHERIDAN SUPERVISOR [employer] Ot V67.1 10/29/2014 SAMIR SHERIDAN SUPERVISOR [employer] Ot V67.2 11/06/2014 SAMIR SHERIDAN SUPERVISOR [employer] Ot 496 11/06/2014 SAMIR SHERIDAN SUPERVISOR [employer] Ot V10.20 11/06/2014 SAMIR SHERIDAN SUPERVISOR [employer] Ot V58.69 11/06/2014 SAMIR SHERIDAN SUPERVISOR [employer] Ot V67.1 11/06/2014 SAMIR SHERIDAN SUPERVISOR [employer] Ot V67.2 10/28/2015 AME OWENS Ot J44.9 CHRONIC OBSTRUCTIVE PULMONARY DISEASE, U 10/28/2015 AME OWENS Charan Ot Z09 ENCNTR FOR F/U EXAM AFT TRTMT FOR COND O 10/28/2015 AME OWENS N Ot 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 10/28/2015 AME OWENS N Ot Z85.20 PERSONAL HISTORY OF MALIGNANT NEOPLASM O 11/19/2015 AME OWENS Charan Ot J44.9 CHRONIC OBSTRUCTIVE PULMONARY DISEASE, U 11/19/2015 AME OWENS Charan Ot Z09 ENCNTR FOR F/U EXAM AFT TRTMT FOR COND O 11/19/2015 AME OWENS N Ot Z79.899 OTHER MCC (CURRENT) DRUG THERAPY 11/19/2015 AME OWENS N Ot Z85.20 PERSONAL HISTORY OF MALIGNANT NEOPLASM O 01/18/2016 Ot 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.9 MALIGNANT CAT LARYNX NOS 01/18/2016 Ot 285.9 ANEMIA NOS 01/18/2016 Ot 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 01/18/2016 Ot 780.79 OTH MALAISE FATIGUE 01/18/2016 Ot 783.1 ABNORMAL WEIGHT GAIN 01/18/2016 Ot 786.2 COUGH 01/18/2016 Ot 401.9 HYPERTENSION NOS 01/18/2016 Ot 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 01/18/2016 Ot 433.10 CAROTID ARTERY OCCLUSION W O CEREBRAL IN 01/18/2016 Ot 492.0 EMPHYSEMATOUS BLEB 01/18/2016 Ot 786.2 COUGH 01/18/2016 SAMIR SHERIDAN SUPERVISOR [employer] Ot 161.0 MALIGNANT CTA GLOTTIS 01/18/2016 AME OWENS Charan Ot 496 CHR AIRWAY OBSTRUCT NEC 01/18/2016 AME OWENS Ot 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 01/18/2016 AME OWENS Charan Ot V58.69 OTH MED,LT,CURRENT USE 01/18/2016 AME OWENS Charan Ot V67.1 RADIOTHERAPY FOLLOW-UP 01/18/2016 AME OWENS Ot V67.2 CHEMOTHERAPY FOLLOW-UP 01/18/2016 SHERIDAN, HILAH S SUPERVISOR [employer] Ot 496 CHR AIRWAY OBSTRUCT NEC 01/18/2016 SAMIR SHERIDAN SUPERVISOR [employer] Ot 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 01/18/2016 SAMIR SHERIDAN SUPERVIS[employer] Ot V58.69 OTH MED,LT,CURRENT USE 01/18/2016 SAMIR SHERIDAN SUPERVISOR [employer] Ot V67.1 RADIOTHERAPY FOLLOW-UP 01/18/2016 SHERIDANSAMIR Lopez SUPERVISOR [employer] Ot V67.2 CHEMOTHERAPY FOLLOW-UP 01/18/2016 Ot 496 CHR AIRWAY OBSTRUCT NEC 01/18/2016 AME OWENS Charan Ot 496 CHR AIRWAY OBSTRUCT NEC 01/18/2016 AME OWENS Charan Ot 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 01/18/2016 AME OWENS Charan Ot V58.69 OTH MED,LT,CURRENT USE 01/18/2016 AME OWENS Charan Ot V67.1 RADIOTHERAPY FOLLOW-UP 01/18/2016 GRACIELAAME Ot V67.2 CHEMOTHERAPY FOLLOW-UP 01/18/2016 SAMIR SHERIDAN SUPERVISOR [employer] Ot 496 CHR AIRWAY OBSTRUCT NEC 01/18/2016 SAMIR SHERIDAN SUPERVISOR [employer]UC[employer] Ot 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 01/18/2016 SAMIR SHERIDAN SUPERVISOR [employer] Ot V58.69 OTH MED,LT,CURRENT USE 01/18/2016 SAMIR SHERIDAN SUPERVISOR [employer] Ot V67.1 RADIOTHERAPY FOLLOW-UP 01/18/2016 SHERIDANSAMIR Lopez SUPERVISOR [employer]UC[employer] Ot V67.2 CHEMOTHERAPY FOLLOW-UP 01/18/2016 AME OWENS Ot J44.9 CHRONIC OBSTRUCTIVE PULMONARY DISEASE, U 01/18/2016 AME OWENS Ot Z09 ENCNTR FOR F/U EXAM AFT TRTMT FOR COND O 01/18/2016 AME OWENS Ot Z79.899 OTHER MCC (CURRENT) DRUG THERAPY 01/18/2016 AME OWENS Ot Z85.20 PERSONAL HISTORY OF MALIGNANT NEOPLASM O 01/19/2016 JOSEPHINE JOHN Ot J44.9 CHRONIC OBSTRUCTIVE PULMONARY DISEASE , U 01/19/2016 JOSEPHINE JOHNP Ot R05 COUGH 02/10/2016 JOSEPHINE JOHNP Ot J44.9 CHRONIC OBSTRUCTIVE PULMONARY DISEASE , U 02/10/2016 DORA JOSEPHINE M SUPERVIS[employer] Ot R05 COUGH 02/22/2016 JOSEPHINE JOHN SUPERVISOR [employer] Ot J44.9 CHRONIC OBSTRUCTIVE PULMONARY DISEASE , U 02/22/2016 JOSEPHINE JOHN SUPERVIS[employer] Ot R05 COUGH 02/23/2016 JOSEPHINE JOHN SUPERVIS[employer] Ot I10 ESSENTIAL (PRIMARY) HYPERTENSION 02/23/2016 JOSEPHINE JOHN SUPERVIS[employer] Ot R41.0 DISORIENTATION, UNSPECIFIED 02/23/2016 JOSEPHINE JOHN SUPERVIS[employer] Ot R44.3 HALLUCINATIONS, UNSPECIFIED 02/27/2016 JOSEPHINE JOHN SUPERVISOR [employer] Ot I10 ESSENTIAL (PRIMARY) HYPERTENSION 02/27/2016 JOSEPHINE JOHN SUPERVISOR [employer] Ot R41.0 DISORIENTATION, UNSPECIFIED 02/27/2016 JOSEPHINE JOHN SUPERVISOR [employer] Ot R44.3 HALLUCINATIONS, UNSPECIFIED 03/08/2016 JOSEPHINE JOHN SUPERVIS[employer] Ot E27.9 DISORDER OF ADRENAL GLAND, UNSPECIFIED 03/08/2016 JOSEPHINE JOHN SUPERVIS[employer] Ot 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 03/08/2016 JOSEPHINE JOHN SUPERVISOR [employer] Ot J44.9 CHRONIC OBSTRUCTIVE PULMONARY DISEASE , U 03/08/2016 JOSEPHINE JOHN SUPERVISOR [employer] Ot R41.0 DISORIENTATION, UNSPECIFIED 03/09/2016 JOSEPHINE JOHN SUPERVISOR [employer] Ot 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 03/15/2016 JOSEPHINE JOHN SUPERVISOR [employer]UC[employer] Ot 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 03/29/2016 JOSEPHINE JOHN SUPERVISOR [employer]UCATION Ot E27.9 DISORDER OF ADRENAL GLAND, UNSPECIFIED 03/29/2016 JOSEPHINE JOHN SUPERVISOR [employer] EDUCATION Ot 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 03/29/2016 JOSEPHINE JOHN SUPERVISOR [employer] EDUCATION Ot J44.9 CHRONIC OBSTRUCTIVE PULMONARY DISEASE , U 03/29/2016 JOSEPHINE JOHN SUPERVISOR [employer]UCATION Ot R41.0 DISORIENTATION, UNSPECIFIED 04/04/2016 JOSEPHINE JOHN SUPERVISOR [employer] EDUCATION Ot I10 ESSENTIAL (PRIMARY) HYPERTENSION 04/04/2016 JOSEPHINE JOHN SUPERVISOR [employer] EDUCATION Ot R41.0 DISORIENTATION, UNSPECIFIED 04/04/2016 JOSEPHINE JOHN SUPERVISOR [employer]UCATION Ot R44.3 HALLUCINATIONS, UNSPECIFIED 04/04/2016 DORAANNETTASVITLANA Drew SUPERVISOR [employer] EDUCATION Ot 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 04/06/2016 DORAANNETTASVITLANA Drew SUPERVISOR [employer] EDUCATION Ot I10 ESSENTIAL (PRIMARY) HYPERTENSION 04/06/2016 DORA JOSEPHINE M SUPERVISOR [employer]UCATION Ot R41.0 DISORIENTATION, UNSPECIFIED 04/06/2016 DORAANNETTASVITLANA Drew SUPERVISOR [employer] EDUCATION Ot R44.3 HALLUCINATIONS, UNSPECIFIED 04/06/2016 DORA JOSEPHINE M SUPERVISOR [employer] EDUCATION Ot E27.9 DISORDER OF ADRENAL GLAND, UNSPECIFIED 04/06/2016 JOHNJOSEPHINE Viki SUPERVISOR [employer] EDUCATION Ot 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 04/06/2016 DORA JOSEPHINE M SUPERVISOR [employer] EDUCATION Ot J44.9 CHRONIC OBSTRUCTIVE PULMONARY DISEASE , U 04/06/2016 DORA JOSEPHINE M SUPERVISOR [employer]UCATION Ot R41.0 DISORIENTATION, UNSPECIFIED 04/06/2016 DORA JOSEPHINE M SUPERVISOR [employer] EDUCATION Ot 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 07/29/2016 Ot 786.2 COUGH 07/29/2016 Ot 401.9 HYPERTENSION NOS 07/29/2016 Ot 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 07/29/2016 Ot 433.10 CAROTID ARTERY OCCLUSION W O CEREBRAL IN 07/29/2016 Ot 492.0 EMPHYSEMATOUS BLEB 07/29/2016 Ot 786.2 COUGH 07/29/2016 SAMIR SHERIDAN SUPERVISOR [employer]UCATION Ot 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 07/29/2016 AME OWENS Ot 496 CHR AIRWAY OBSTRUCT NEC 07/29/2016 AME OWENS Ot 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 07/29/2016 AME OWENS Ot V58.69 OTH MED,LT,CURRENT USE 07/29/2016 AME OWENS Ot V67.1 RADIOTHERAPY FOLLOW-UP 07/29/2016 AME OWENS Ot V67.2 CHEMOTHERAPY FOLLOW-UP 07/29/2016 SAMIR SHERIDANP Ot 496 CHR AIRWAY OBSTRUCT NEC 07/29/2016 SAMIR SHERIDANP Ot 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 07/29/2016 SAMIR SHERIDANP Ot V58.69 OTH MED,LT,CURRENT USE 07/29/2016 SAMIR SHERIDAN SUPERVISOR [employer]UC[employer] Ot V67.1 RADIOTHERAPY FOLLOW-UP 07/29/2016 SHERIDANSAMIR Lopez SUPERVISOR [employer] EDUCATION Ot V67.2 CHEMOTHERAPY FOLLOW-UP 07/29/2016 Ot 496 CHR AIRWAY OBSTRUCT NEC 07/29/2016 AME OWENS Ot 496 CHR AIRWAY OBSTRUCT NEC 07/29/2016 AME OWENS Ot 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 07/29/2016 AME OWENS Ot V58.69 OTH MED,LT,CURRENT USE 07/29/2016 AME OWENS Ot V67.1 RADIOTHERAPY FOLLOW-UP 07/29/2016 AME OWENS Charan Ot V67.2 CHEMOTHERAPY FOLLOW-UP 07/29/2016 SAMIR SHERIDANP Ot 496 CHR AIRWAY OBSTRUCT NEC 07/29/2016 SHERIDANSAMIR SUPERVISOR [employer] EDUCATION Ot 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 07/29/2016 SHERIDANSAMIR Lopez SUPERVISOR [employer]UCATION Ot V58.69 OTH MED,LT,CURRENT USE 07/29/2016 SHERIDAN, PINGASCENCION Jessica SUPERVISOR [employer]UC[employer] Ot V67.1 RADIOTHERAPY FOLLOW-UP 07/29/2016 SAMIR SHERIDAN SUPERVISOR [employer]UC[employer] Ot V67.2 CHEMOTHERAPY FOLLOW-UP 07/29/2016 AME OWENS Charan Ot J44.9 CHRONIC OBSTRUCTIVE PULMONARY DISEASE, U 07/29/2016 AME OWENS Charan Ot Z09 ENCNTR FOR F/U EXAM AFT TRTMT FOR COND O 07/29/2016 AME OWENS Charan Ot 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 07/29/2016 AME OWENS Charan Ot Z85.20 PERSONAL HISTORY OF MALIGNANT NEOPLASM O 07/29/2016 JOSEPHINE JOHN SUPERVISOR [employer] Ot J44.9 CHRONIC OBSTRUCTIVE PULMONARY DISEASE , U 07/29/2016 JOSEPHINE JOHN SUPERVISOR [employer]UCATION Ot R05 COUGH 07/29/2016 JOSEPHINE JOHN SUPERVISOR [employer]UCATION Ot I10 ESSENTIAL (PRIMARY) HYPERTENSION 07/29/2016 JOSEPHINE JOHN SUPERVISOR [employer]UC[employer] Ot R41.0 DISORIENTATION, UNSPECIFIED 07/29/2016 JOSEPHINE JOHNP Ot R44.3 HALLUCINATIONS, UNSPECIFIED 07/29/2016 JOSEPHINE JOHN SUPERVISOR [employer]UC[employer] Ot E27.9 DISORDER OF ADRENAL GLAND, UNSPECIFIED 07/29/2016 JOSEPHINE JOHN SUPERVISOR [employer] EDUC[employer] Ot 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 07/29/2016 JOSEPHINE JOHN SUPERVISOR [employer] EDUCATION Ot J44.9 CHRONIC OBSTRUCTIVE PULMONARY DISEASE , U 07/29/2016 JOSEPHINE JOHN SUPERVISOR [employer] EDUCATION Ot R41.0 DISORIENTATION, UNSPECIFIED 07/29/2016 JOSEPHINE JOHN SUPERVISOR [employer] EDUCATION Ot 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 08/01/2016 KEVIN HARKINS MD Ot D64.9 ANEMIA, UNSPECIFIED 08/01/2016 SHAHANA EUGENE, KEVIN Dixon Ot E87.6 HYPOKALEMIA 08/01/2016 SHAHANA EUGENE, KEVIN Dixon Ot F03.91 UNSPECIFIED DEMENTIA WITH BEHAVIORAL DIS 08/01/2016 KEVIN HARKINS MD Ot F41.9 ANXIETY DISORDER, UNSPECIFIED 08/01/2016 KEVIN HARKINS MD Ot G47.00 INSOMNIA, UNSPECIFIED 08/01/2016 KEVIN HARKINS MD Ot I11.0 HYPERTENSIVE HEART DISEASE WITH HEART FA 08/01/2016 KEVIN HARKINS MD Ot I50.9 HEART FAILURE, UNSPECIFIED 08/01/2016 KEVIN HARKINS MD Ot J18.9 PNEUMONIA, UNSPECIFIED ORGANISM 08/01/2016 KEVIN HARKINS MD Ot J44.0 CHRONIC OBSTRUCTIVE PULMON DISEASE W ACU 08/01/2016 KEVIN HARKINS MD Ot K29.60 OTHER GASTRITIS WITHOUT BLEEDING 08/01/2016 KEVIN HARKINS MD Ot K59.00 CONSTIPATION, UNSPECIFIED 08/01/2016 KEVIN HARKINS MD Ot N40.0 BENIGN PROSTATIC HYPERPLASIA WITHOUT LOW 08/01/2016 KEVIN HARKINS MD Ot R04.2 HEMOPTYSIS 08/01/2016 KEVIN HARKINS MD Ot R09.02 HYPOXEMIA 08/01/2016 KEVIN HARKINS MD Ot R56.9 UNSPECIFIED CONVULSIONS 08/01/2016 KEVIN HARKINS MD Ot R64 CACHEXIA 08/01/2016 KEVIN HARKINS MD Ot T38.0X5A ADVERSE EFFECT OF GLUCOCORT/SYNTH ANALOG 08/01/2016 KEVIN HARKINS MD Ot Z66 DO NOT RESUSCITATE 08/01/2016 KEVIN HARKINS MD Ot Z85.118 PERSONAL HISTORY OF MALIGNANT NEOPLASM O 08/01/2016 KEVIN HARKINS MD Ot Z85.819 PRSNL HX OF MALIG NEOPLM OF [facility] SITE LI 08/01/2016 KEVIN HARKINS MD, Ot Z85.828 PERSONAL HISTORY OF OTHER MALIGNANT NEOP 08/01/2016 KEVIN HARKINS MD Ot Z87.891 PERSONAL HISTORY OF NICOTINE DEPENDENCE 08/02/2016 KEVIN HARKINS MD Ot D64.9 ANEMIA, UNSPECIFIED 08/02/2016 KEVIN HARKINS MD Ot E87.6 HYPOKALEMIA 08/02/2016 KEVIN HARKINS MD Ot F03.91 UNSPECIFIED DEMENTIA WITH BEHAVIORAL DIS 08/02/2016 KEVIN HARKINS MD Ot F41.9 ANXIETY DISORDER, UNSPECIFIED 08/02/2016 KEVIN HARKINS MD Ot G47.00 INSOMNIA, UNSPECIFIED 08/02/2016 KEVIN HARKINS MD Ot I11.0 HYPERTENSIVE HEART DISEASE WITH HEART FA 08/02/2016 KEVIN HARKINS MD Ot I50.9 HEART FAILURE, UNSPECIFIED 08/02/2016 KEVIN HARKINS MD Ot J18.9 PNEUMONIA, UNSPECIFIED ORGANISM 08/02/2016 KEVIN HARKINS MD Ot J44.0 CHRONIC OBSTRUCTIVE PULMON DISEASE W ACU 08/02/2016 KEVIN HARKINS MD Ot K29.60 OTHER GASTRITIS WITHOUT BLEEDING 08/02/2016 KEVIN HARKINS MD Ot K59.00 CONSTIPATION, UNSPECIFIED 08/02/2016 KEVIN HARKINS MD Ot N40.0 BENIGN PROSTATIC HYPERPLASIA WITHOUT LOW 08/02/2016 KEVIN HARKINS MD Ot R04.2 HEMOPTYSIS 08/02/2016 KEVIN HARKINS MD Ot R09.02 HYPOXEMIA 08/02/2016 KEVIN HARKINS MD Ot R56.9 UNSPECIFIED CONVULSIONS 08/02/2016 KEVIN HARKINS MD Ot R64 CACHEXIA 08/02/2016 KEVIN HARKINS MD Ot T38.0X5A ADVERSE EFFECT OF GLUCOCORT/SYNTH ANALOG 08/02/2016 KEVIN HARKINS MD Ot Z66 DO NOT RESUSCITATE 08/02/2016 KEVIN HARKINS MD Ot Z85.118 PERSONAL HISTORY OF MALIGNANT NEOPLASM O 08/02/2016 KEVIN HARKINS MD Ot Z85.819 PRSNL HX OF [facility]IG [facility]LM OF [facility] S[facility] 08/02/2016 KEVIN HARKINS MD Ot Z85.828 PERSONAL HISTORY OF OTHER MALIGNANT NEOP 08/02/2016 KEVIN HARKINS MD Ot Z87.891 PERSONAL HISTORY OF NICOTINE DEPENDENCE 08/02/2016 KEVIN HARKINS MD Ot D64.9 ANEMIA, UNSPECIFIED 08/02/2016 KEVIN HARKINS MD Ot E87.6 HYPOKALEMIA 08/02/2016 KEVIN HARKINS MD Ot F03.91 UNSPECIFIED DEMENTIA WITH BEHAVIORAL DIS 08/02/2016 KEVIN HARKINS MD Ot F41.9 ANXIETY DISORDER, UNSPECIFIED 08/02/2016 KEVIN HARKINS MD Ot G47.00 INSOMNIA, UNSPECIFIED 08/02/2016 KEVIN HARKINS MD Ot I11.0 HYPERTENSIVE HEART DISEASE WITH HEART FA 08/02/2016 KEVIN HARKINS MD Ot I50.23 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) H 08/02/2016 KEVIN HARKINS MD Ot I50.9 HEART FAILURE, UNSPECIFIED 08/02/2016 KEVIN HARKINS MD Ot J18.9 PNEUMONIA, UNSPECIFIED ORGANISM 08/02/2016 KEVIN HARKINS MD Ot J44.0 CHRONIC OBSTRUCTIVE PULMON DISEASE W ACU 08/02/2016 KEVIN HARKINS MD Ot K29.60 OTHER GASTRITIS WITHOUT BLEEDING 08/02/2016 KEVIN HARKINS MD Ot K59.00 CONSTIPATION, UNSPECIFIED 08/02/2016 KEVIN HARKINS MD Ot N40.0 BENIGN PROSTATIC HYPERPLASIA WITHOUT LOW 08/02/2016 KEVIN HARKINS MD Ot R04.2 HEMOPTYSIS 08/02/2016 KEVIN HARKINS MD Ot R09.02 HYPOXEMIA 08/02/2016 KEVIN HARKINS MD Ot R56.9 UNSPECIFIED CONVULSIONS 08/02/2016 KEVIN HARKINS MD Ot R64 CACHEXIA 08/02/2016 KEVIN HARKINS MD Ot T38.0X5A ADVERSE EFFECT OF GLUCOCORT/SYNTH ANALOG 08/02/2016 KEVIN HARKINS MD Ot Z66 DO NOT RESUSCITATE 08/02/2016 KEVIN HARKINS MD Ot Z85.118 PERSONAL HISTORY OF MALIGNANT NEOPLASM O 08/02/2016 KEVIN HARKINS MD Ot Z85.819 PRSNL HX OF MALIG NEOPLM OF [facility] SITE LI 08/02/2016 KEVIN HARKINS MD Ot Z85.828 PERSONAL HISTORY OF OTHER MALIGNANT NEOP 08/02/2016 KEVIN HARKINS MD Ot Z87.891 PERSONAL HISTORY OF NICOTINE DEPENDENCE Procedures Results Test Result Range Complete blood count (CBC) with automated white blood cell (WBC) differential - 02/21/16 10:02 Blood leukocytes automated count (number/volume) 19.9 10*3/ uL 4.3-11.0 Blood erythrocytes automated count (number/volume) 3.96 10*6 /uL 4.35-5.85 Venous blood hemoglobin measurement (mass/volume) 12.7 g/dL 13.3-17.7 Blood hematocrit (volume fraction) 37 % 40-54 Automated erythrocyte mean corpuscular volume 94 [foz_us] 80-99 Automated erythrocyte mean corpuscular hemoglobin (mass per erythrocyte) 32 pg 25-34 Automated erythrocyte mean corpuscular hemoglobin concentration measurement ( mass/volume) 34 g/dL 32-36 Automated erythrocyte distribution width ratio 12.8 % 10.0-14.5 Automated blood platelet count (count/volume) 373 10*3/uL 130-400 Automated blood platelet mean volume measurement 7.9 [foz_us ] 7.4-10.4 Automated blood neutrophils/100 leukocytes 86 % 42-75 Automated blood lymphocytes/100 leukocytes 7 % 12-44 Blood monocytes/100 leukocytes 6 % 0-12 Automated blood eosinophils/100 leukocytes 1 % 0-10 Automated blood basophils/100 leukocytes 0 % 0-10 Blood neutrophils automated count (number/volume) 17.2 10*3 1.8-7.8 Blood lymphocytes automated count (number/volume) 1.4 10*3 1.0-4.0 Blood monocytes automated count (number/volume) 1.2 10*3 0.0-1.0 Automated eosinophil count 0.1 10*3/uL 0.0-0.3 Automated blood basophil count (count/volume) 0.0 10*3/uL 0.0-0.1 Blood manual differential performed detection - 02/21/16 10:02 Blood monocytes/100 leukocytes 6 % NRG Manual blood segmented neutrophils/100 leukocytes 87 % NRG Blood band neutrophils/100 leukocytes 1 % NR Manual blood lymphocytes/100 leukocytes 6 % NR Manual eosinophils/100 leukocytes in nose 0 % NR Manual blood basophils/100 leukocytes 0 % NR Blood erythrocyte morphology finding identification [facility] Comprehensive metabolic panel - 02/21/16 10:02 Serum or plasma sodium measurement (moles/volume) 131 mmol/ L 135-145 Serum or plasma potassium measurement (moles/volume) 4.0 mmol/L 3.6-5.0 Serum or plasma chloride measurement (moles/volume) 96 mmol/ L 98-107 Carbon dioxide 27 mmol/L 21-32 Serum or plasma anion gap determination (moles/volume) 8 mmol/L 5-14 Serum or plasma urea nitrogen measurement (mass/volume) 16 mg/dL 7-18 Serum or plasma creatinine measurement (mass/volume) 0.90 mg /dL 0.60-1.30 Serum or plasma urea nitrogen/creatinine mass ratio 18 NRG Serum or plasma creatinine measurement with calculation of estimated glomerular filtration rate > NRG Serum or plasma glucose measurement (mass/volume) 104 mg/dL 70-105 Serum or plasma calcium measurement (mass/volume) 9.0 mg/dL 8.5-10.1 Serum or plasma total bilirubin measurement (mass/volume) 0.7 mg/dL 0.1-1.0 Serum or plasma alkaline phosphatase measurement (enzymatic activity/volume) 92 U/L 40-136 Serum or plasma aspartate aminotransferase measurement (enzymatic activity/ volume) 11 U/L 5-34 Serum or plasma alanine aminotransferase measurement (enzymatic activity/volume ) 13 U/L 0-55 Serum or plasma protein measurement (mass/volume) 6.7 g/dL 6.4-8.2 Serum or plasma albumin measurement (mass/volume) 3.7 g/dL 3.2-4.5 THYROID STIMULATING HORMONE - 02/21/16 10:02 THYROID STIMULATING HORMONE 2.45 u[iU]/mL 0.35-4.94 Complete urinalysis with reflex to culture - 02/21/16 10:10 Urine color determination YELLOW NRG Urine clarity determination CLEAR NRG Urine pH measurement by test strip 6 5- 9 Specific gravity of urine by test strip 1.020 1.016-1.022 Urine protein assay by test strip, semi-quantitative 1+ NEGATIVE Urine glucose detection by automated test strip NEGATIVE NEGATIVE Erythrocytes detection in urine sediment by light microscopy NEGATIVE NEGATIVE Urine ketones detection by automated test strip NEGATIVE NEGATIVE Urine nitrite detection by test strip NEGATIVE NEGATIVE Urine total bilirubin detection by test strip NEGATIVE NEGATIVE Urine urobilinogen measurement by automated test strip (mass/volume) 1 mg/dL NORMAL Urine leukocyte esterase detection by dipstick NEGATIVE NEGATIVE Automated urine sediment erythrocyte count by microscopy (number/high power field) NONE NRG Automated urine sediment leukocyte count by microscopy (number/high power field ) [HPF] NRG Bacteria detection in urine sediment by light microscopy TRACE NRG Squamous epithelial cells detection in urine sediment by light microscopy 2-5 NRG Crystals detection in urine sediment by light microscopy NONE NRG Casts detection in urine sediment by light microscopy NONE NRG Mucus detection in urine sediment by light microscopy SMALL NRG Complete urinalysis with reflex to culture NO NRG Complete blood count (CBC) with automated white blood cell (WBC) differential - 07/29/16 13:20 Blood leukocytes automated count (number/volume) 12.0 10*3/ uL 4.3-11.0 Blood erythrocytes automated count (number/volume) 3.18 10*6 /uL 4.35-5.85 Venous blood hemoglobin measurement (mass/volume) 9.7 g/dL 13.3-17.7 Blood hematocrit (volume fraction) 29 % 40-54 Automated erythrocyte mean corpuscular volume 91 [foz_us] 80-99 Automated erythrocyte mean corpuscular hemoglobin (mass per erythrocyte) 31 pg 25-34 Automated erythrocyte mean corpuscular hemoglobin concentration measurement ( mass/volume) 34 g/dL 32-36 Automated erythrocyte distribution width ratio 13.1 % 10.0-14.5 Automated blood platelet count (count/volume) 383 10*3/uL 130-400 Automated blood platelet mean volume measurement 7.9 [foz_us ] 7.4-10.4 Automated blood neutrophils/100 leukocytes 76 % 42-75 Automated blood lymphocytes/100 leukocytes 11 % 12-44 Blood monocytes/100 leukocytes 12 % 0-12 Automated blood eosinophils/100 leukocytes 1 % 0-10 Automated blood basophils/100 leukocytes 0 % 0-10 Blood neutrophils automated count (number/volume) 9.1 10*3 1.8-7.8 Blood lymphocytes automated count (number/volume) 1.3 10*3 1.0-4.0 Blood monocytes automated count (number/volume) 1.5 10*3 0.0-1.0 Automated eosinophil count 0.1 10*3/uL 0.0-0.3 Automated blood basophil count (count/volume) 0.0 10*3/uL 0.0-0.1 Comprehensive metabolic panel - 07/29/16 13:20 Serum or plasma sodium measurement (moles/volume) 127 mmol/ L 135-145 Serum or plasma potassium measurement (moles/volume) 3.1 mmol/L 3.6-5.0 Serum or plasma chloride measurement (moles/volume) 92 mmol/ L 98-107 Carbon dioxide 25 mmol/L 21-32 Serum or plasma anion gap determination (moles/volume) 10 mmol/L 5-14 Serum or plasma urea nitrogen measurement (mass/volume) 18 mg/dL 7-18 Serum or plasma creatinine measurement (mass/volume) 0.85 mg /dL 0.60-1.30 Serum or plasma urea nitrogen/creatinine mass ratio 21 0-20 Serum or plasma creatinine measurement with calculation of estimated glomerular filtration rate > NRG Serum or plasma glucose measurement (mass/volume) 106 mg/dL 70-105 Serum or plasma calcium measurement (mass/volume) 8.5 mg/dL 8.5-10.1 Serum or plasma total bilirubin measurement (mass/volume) 0.7 mg/dL 0.1-1.0 Serum or plasma alkaline phosphatase measurement (enzymatic activity/volume) 94 U/L 40-136 Serum or plasma aspartate aminotransferase measurement (enzymatic activity/ volume) 27 U/L 5-34 Serum or plasma alanine aminotransferase measurement (enzymatic activity/volume ) 38 U/L 0-55 Serum or plasma protein measurement (mass/volume) 6.1 g/dL 6.4-8.2 Serum or plasma albumin measurement (mass/volume) 3.1 g/dL 3.2-4.5 Fibrin D-dimer FEU measurement in platelet poor plasma (mass/volume) - 13:20 Fibrin D-dimer FEU measurement in platelet poor plasma (mass/volume) 1.00 ug/mL 0.00-0.49 Serum or plasma troponin i.cardiac measurement (mass/volume) - 07/29/16 13:20 Serum or plasma troponin i.cardiac measurement (mass/volume) < ng/mL <0.30 Serum or plasma lithium measurement (moles/volume) - 07/29/16 13:20 BNP level 306.5 pg/mL <100.0 Serum or plasma troponin i.cardiac measurement (mass/volume) - 07/29/16 16:32 Serum or plasma troponin i.cardiac measurement (mass/volume) < ng/mL <0.30 Serum or plasma troponin i.cardiac measurement (mass/volume) - 07/29/16 22:05 Serum or plasma troponin i.cardiac measurement (mass/volume) < ng/mL <0.30 Complete blood count (CBC) with automated white blood cell (WBC) differential - 07/30/16 05:30 Blood leukocytes automated count (number/volume) 11.7 10*3/ uL 4.3-11.0 Blood erythrocytes automated count (number/volume) 3.12 10*6 /uL 4.35-5.85 Venous blood hemoglobin measurement (mass/volume) 9.4 g/dL 13.3-17.7 Blood hematocrit (volume fraction) 28 % 40-54 Automated erythrocyte mean corpuscular volume 90 [foz_us] 80-99 Automated erythrocyte mean corpuscular hemoglobin (mass per erythrocyte) 30 pg 25-34 Automated erythrocyte mean corpuscular hemoglobin concentration measurement ( mass/volume) 34 g/dL 32-36 Automated erythrocyte distribution width ratio 12.8 % 10.0-14.5 Automated blood platelet count (count/volume) 398 10*3/uL 130-400 Automated blood platelet mean volume measurement 8.4 [foz_us ] 7.4-10.4 Automated blood neutrophils/100 leukocytes 85 % 42-75 Automated blood lymphocytes/100 leukocytes 8 % 12-44 Blood monocytes/100 leukocytes 8 % 0-12 Automated blood eosinophils/100 leukocytes 0 % 0-10 Automated blood basophils/100 leukocytes 0 % 0-10 Blood neutrophils automated count (number/volume) 9.9 10*3 1.8-7.8 Blood lymphocytes automated count (number/volume) 0.9 10*3 1.0-4.0 Blood monocytes automated count (number/volume) 0.9 10*3 0.0-1.0 Automated eosinophil count 0.0 10*3/uL 0.0-0.3 Automated blood basophil count (count/volume) 0.0 10*3/uL 0.0-0.1 Comprehensive metabolic panel - 07/30/16 05:30 Serum or plasma sodium measurement (moles/volume) 130 mmol/ L 135-145 Serum or plasma potassium measurement (moles/volume) 2.7 mmol/L 3.6-5.0 Serum or plasma chloride measurement (moles/volume) 91 mmol/ L 98-107 Carbon dioxide 27 mmol/L 21-32 Serum or plasma anion gap determination (moles/volume) 12 mmol/L 5-14 Serum or plasma urea nitrogen measurement (mass/volume) 15 mg/dL 7-18 Serum or plasma creatinine measurement (mass/volume) 0.80 mg /dL 0.60-1.30 Serum or plasma urea nitrogen/creatinine mass ratio 19 0-20 Serum or plasma creatinine measurement with calculation of estimated glomerular filtration rate > NRG Serum or plasma glucose measurement (mass/volume) 129 mg/dL 70-105 Serum or plasma calcium measurement (mass/volume) 8.6 mg/dL 8.5-10.1 Serum or plasma total bilirubin measurement (mass/volume) 0.7 mg/dL 0.1-1.0 Serum or plasma alkaline phosphatase measurement (enzymatic activity/volume) 88 U/L 40-136 Serum or plasma aspartate aminotransferase measurement (enzymatic activity/ volume) 26 U/L 5-34 Serum or plasma alanine aminotransferase measurement (enzymatic activity/volume ) 36 U/L 0-55 Serum or plasma protein measurement (mass/volume) 6.3 g/dL 6.4-8.2 Serum or plasma albumin measurement (mass/volume) 3.0 g/dL 3.2-4.5 Serum or plasma troponin i.cardiac measurement (mass/volume) - 07/30/16 05:30 Serum or plasma troponin i.cardiac measurement (mass/volume) < ng/mL <0.30 Automated blood complete blood count (hemogram) panel - 07/31/16 05:05 Blood leukocytes automated count (number/volume) 10.0 10*3/ uL 4.3-11.0 Blood erythrocytes automated count (number/volume) 2.90 10*6 /uL 4.35-5.85 Venous blood hemoglobin measurement (mass/volume) 8.8 g/dL 13.3-17.7 Blood hematocrit (volume fraction) 27 % 40-54 Automated erythrocyte mean corpuscular volume 93 [foz_us] 80-99 Automated erythrocyte mean corpuscular hemoglobin (mass per erythrocyte) 30 pg 25-34 Automated erythrocyte mean corpuscular hemoglobin concentration measurement ( mass/volume) 33 g/dL 32-36 Automated erythrocyte distribution width ratio 13.3 % 10.0-14.5 Automated blood platelet count (count/volume) 406 10*3/uL 130-400 Automated blood platelet mean volume measurement 8.3 [foz_us ] 7.4-10.4 Comprehensive metabolic panel - 07/31/16 05:05 Serum or plasma sodium measurement (moles/volume) 135 mmol/ L 135-145 Serum or plasma potassium measurement (moles/volume) 3.7 mmol/L 3.6-5.0 Serum or plasma chloride measurement (moles/volume) 96 mmol/ L 98-107 Carbon dioxide 30 mmol/L 21-32 Serum or plasma anion gap determination (moles/volume) 9 mmol/L 5-14 Serum or plasma urea nitrogen measurement (mass/volume) 23 mg/dL 7-18 Serum or plasma creatinine measurement (mass/volume) 1.04 mg /dL 0.60-1.30 Serum or plasma urea nitrogen/creatinine mass ratio 22 0-20 Serum or plasma creatinine measurement with calculation of estimated glomerular filtration rate > NRG Serum or plasma glucose measurement (mass/volume) 92 mg/dL 70-105 Serum or plasma calcium measurement (mass/volume) 8.7 mg/dL 8.5-10.1 Serum or plasma total bilirubin measurement (mass/volume) 0.8 mg/dL 0.1-1.0 Serum or plasma alkaline phosphatase measurement (enzymatic activity/volume) 79 U/L 40-136 Serum or plasma aspartate aminotransferase measurement (enzymatic activity/ volume) 24 U/L 5-34 Serum or plasma alanine aminotransferase measurement (enzymatic activity/volume ) 35 U/L 0-55 Serum or plasma protein measurement (mass/volume) 5.7 g/dL 6.4-8.2 Serum or plasma albumin measurement (mass/volume) 2.8 g/dL 3.2-4.5 Serum or plasma lithium measurement (moles/volume) - 07/31/16 05:05 BNP level 122.5 pg/mL <100.0 Automated blood complete blood count (hemogram) panel - 08/01/16 09:18 Blood leukocytes automated count (number/volume) 9.0 10*3/ uL 4.3-11.0 Blood erythrocytes automated count (number/volume) 2.98 10*6 /uL 4.35-5.85 Venous blood hemoglobin measurement (mass/volume) 9.0 g/dL 13.3-17.7 Blood hematocrit (volume fraction) 28 % 40-54 Automated erythrocyte mean corpuscular volume 94 [foz_us] 80-99 Automated erythrocyte mean corpuscular hemoglobin (mass per erythrocyte) 30 pg 25-34 Automated erythrocyte mean corpuscular hemoglobin concentration measurement ( mass/volume) 32 g/dL 32-36 Automated erythrocyte distribution width ratio 13.6 % 10.0-14.5 Automated blood platelet count (count/volume) 396 10*3/uL 130-400 Automated blood platelet mean volume measurement 8.3 [foz_us ] 7.4-10.4 Comprehensive metabolic panel - 08/01/16 09:18 Serum or plasma sodium measurement (moles/volume) 132 mmol/ L 135-145 Serum or plasma potassium measurement (moles/volume) 3.9 mmol/L 3.6-5.0 Serum or plasma chloride measurement (moles/volume) 96 mmol/ L 98-107 Carbon dioxide 28 mmol/L 21-32 Serum or plasma anion gap determination (moles/volume) 8 mmol/L 5-14 Serum or plasma urea nitrogen measurement (mass/volume) 25 mg/dL 7-18 Serum or plasma creatinine measurement (mass/volume) 0.90 mg /dL 0.60-1.30 Serum or plasma urea nitrogen/creatinine mass ratio 28 0-20 Serum or plasma creatinine measurement with calculation of estimated glomerular filtration rate > NRG Serum or plasma glucose measurement (mass/volume) 95 mg/dL 70-105 Serum or plasma calcium measurement (mass/volume) 8.6 mg/dL 8.5-10.1 Serum or plasma total bilirubin measurement (mass/volume) 0.8 mg/dL 0.1-1.0 Serum or plasma alkaline phosphatase measurement (enzymatic activity/volume) 76 U/L 40-136 Serum or plasma aspartate aminotransferase measurement (enzymatic activity/ volume) 21 U/L 5-34 Serum or plasma alanine aminotransferase measurement (enzymatic activity/volume ) 33 U/L 0-55 Serum or plasma protein measurement (mass/volume) 6.1 g/dL 6.4-8.2 Serum or plasma albumin measurement (mass/volume) 2.8 g/dL 3.2-4.5 Encounters ACCT No. Visit Date/Time Discharge Status Pt. Type Provider Facility Loc./Unit Complaint [id number] 07/29/2016 14:53:00 2016 12:50:00 DIS Outpatient KEVIN HARKINS MD [facility] 4TH CHF [id number] 10/08/2014 10:52:00 2014 23:59:59 CLS Outpatient SAMIR SHERIDAN [employer] [facility] ONC [id number] 10/02/2013 10:37:00 2013 23:59:59 CLS Outpatient AME OWENS [facility] ONC [id number] 05/15/2013 10:00:00 2013 00:01:00 DIS Outpatient GIULIANO WRIGHT DO [facility] PULM SYNCOPE,COPD [id number] 04/08/2013 12:32:00 2013 23:59:59 CLS Outpatient SAMIR SHERIDAN [employer] [facility] ONC [id number] 03/26/2013 10:51:00 2013 10:40:00 DIS Inpatient KEVIN HARKINS MD [facility] 4TH SYNCOPE,COPD [id number] 09/26/2012 09:27:00 2012 23:59:59 CLS Outpatient AME OWENS [facility] ONC 0V [id number] 09/23/2012 08:32:00 2012 23:59:59 CLS Outpatient SAMIR SHERIDAN [employer] [facility] RAD VOCAL CORD CANCER [id number] 03/09/2016 14:06:00 ACT Outpatient JOSEPHINE JOHNP [facility] RAD RT CAROTID STENOSIS NOTED ON CT [id number] 03/03/2016 07:46:00 ACT Outpatient JOSEPHINE JOHN [facility] RAD COPD CONFUSION [id number] 02/21/2016 09:41:00 ACT Outpatient JOSEPHINE JOHN [employer] [facility] RAD CONFUSION,HALLUCINATIONS [id number] 01/18/2016 11:34:00 ACT Outpatient JOSEPHINE JOHN [facility] RAD COPD,COUGH [id number] 01/18/2016 11:33:00 Document Registration [id number] 10/27/2015 10:19:00 ACT Outpatient AME OWENS [facility] ONC [id number] 07/01/2013 08:00:00 Document Registration [id number] 04/08/2012 10:15:00 Document Registration [id number] 10/04/2011 09:51:00 Document Registration [id number] 09/08/2011 08:00:00 Document Registration [id number] 05/31/2011 09:41:00 Document Registration [id number] 04/11/2011 09:29:00 Document Registration [id number] 04/05/2011 09:52:00 Document Registration [id number] 01/30/2011 10:47:00 Document Registration [id number] 01/23/2011 09:22:00 Document Registration [id number] 01/23/2011 08:52:00 Document Registration [id number] 11/02/2010 13:08:00 Document Registration
--- OUTSIDE RECORDS SUMMARY | 2016-08-08 09:39 | XMS REPORT | Continuity of Care Document ---
Author Author [facility] Organization [facility] Address Unknown Phone Unavailable Allergies Active Description Code Type Severity Reaction Onset Reported/Identified Relationship to Patient Clinical Status Yes prednisone [id number] Drug Allergy Mild SOB 09/15/2008 Medications Problems [...] CHR AIRWAY OBSTRUCT NEC 10/29/2014 SAMIR SHERIDAN [employer] Ot 496 10/29/2014 SAMIR SHERIDAN [employer] Ot V10.20 10/29/2014 SAMIR SHERIDAN [employer] Ot V58.69 10/29/2014 SAMIR SHERIDAN [employer] Ot V67.1 10/29/2014 SAMIR SHERIDAN [employer] Ot V67.2 11/06/2014 SAMIR SHERIDAN [employer] Ot 496 11/06/2014 SAMIR SHERIDAN [employer] Ot V10.20 11/06/2014 SAMIR SHERIDAN [employer] Ot V58.69 11/06/2014 SAMIR SHERIDAN [employer] Ot V67.1 11/06/2014 SAMIR SHERIDAN [employer] Ot V67.2 10/28/2015 AME OWENS Ot J44.9 CHRONIC OBSTRUCTIVE PULMONARY DISEASE, U 10/28/2015 AME OWENS Charan Ot Z09 ENCNTR FOR F/U EXAM AFT TRTMT FOR COND O 10/28/2015 AME OWENS N Ot 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 10/28/2015 AME OWENS N Ot Z85.20 PERSONAL HISTORY OF MALIGNANT NEOPLASM O 11/19/2015 AME OWENS Charan Ot J44.9 CHRONIC OBSTRUCTIVE PULMONARY DISEASE, U 11/19/2015 AME OWENS Charan Ot Z09 ENCNTR FOR F/U EXAM AFT TRTMT FOR COND O 11/19/2015 AME OWENS N Ot Z79.899 OTHER CUSTODIAL (CURRENT) DRUG THERAPY 11/19/2015 AME OWENS N [...] 01/18/2016 Ot 786.2 COUGH 01/18/2016 SAMIR SHERIDAN [employer] Ot 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 01/18/2016 AME OWENS Charan Ot 496 CHR AIRWAY OBSTRUCT NEC 01/18/2016 AME OWENS Ot 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 01/18/2016 AME OWENS Charan Ot V58.69 OTH MED,LT,CURRENT USE 01/18/2016 AME OWENS Charan Ot V67.1 RADIOTHERAPY FOLLOW-UP 01/18/2016 AME OWENS Ot V67.2 CHEMOTHERAPY FOLLOW-UP 01/18/2016 SHERIDAN, HILAH S [employer] Ot 496 CHR AIRWAY OBSTRUCT NEC 01/18/2016 SAMIR SHERIDAN [employer] Ot 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 01/18/2016 SAMIR SHERIDAN [employer] Ot V58.69 OTH MED,LT,CURRENT USE 01/18/2016 SAMIR SHERIDAN [employer] Ot V67.1 RADIOTHERAPY FOLLOW-UP 01/18/2016 SHERIDANSAMIR Lopez [employer]PORATE CON[employer]ERGE Ot V67.2 CHEMOTHERAPY FOLLOW-UP 01/18/2016 Ot 496 CHR AIRWAY OBSTRUCT NEC 01/18/2016 AME OWENS Charan Ot 496 CHR AIRWAY OBSTRUCT NEC 01/18/2016 AME OWENS Charan Ot 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 01/18/2016 AME OWENS Charan Ot V58.69 OTH MED,LT,CURRENT USE 01/18/2016 AME OWENS Charan Ot V67.1 RADIOTHERAPY FOLLOW-UP 01/18/2016 GRACIELAAME Ot V67.2 CHEMOTHERAPY FOLLOW-UP 01/18/2016 SAMIR SHERIDAN [employer] Ot 496 CHR AIRWAY OBSTRUCT NEC 01/18/2016 SAMIR SHERIDAN [employer]POR[employer] Ot 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 01/18/2016 SAMIR SHERIDAN [employer] Ot V58.69 OTH MED,LT,CURRENT USE 01/18/2016 SAMIR SHERIDAN [employer]ER[employer] Ot V67.1 RADIOTHERAPY FOLLOW-UP 01/18/2016 SHERIDANSAMIR Lopez [employer]POR[employer]ER[employer] Ot V67.2 CHEMOTHERAPY FOLLOW-UP 01/18/2016 AME OWENS Ot J44.9 CHRONIC OBSTRUCTIVE PULMONARY DISEASE, U 01/18/2016 AME OWENS Ot Z09 ENCNTR FOR F/U EXAM AFT TRTMT FOR COND O 01/18/2016 AME OWENS Ot Z79.899 OTHER CUSTODIAL (CURRENT) DRUG THERAPY 01/18/2016 AME OWENS Ot Z85.20 PERSONAL HISTORY OF MALIGNANT NEOPLASM O 01/19/2016 JOSEPHINE JOHN Ot J44.9 CHRONIC OBSTRUCTIVE PULMONARY DISEASE , U 01/19/2016 JOSEPHINE JOHNP Ot R05 COUGH 02/10/2016 JOSEPHINE JOHNP Ot J44.9 CHRONIC OBSTRUCTIVE PULMONARY DISEASE , U 02/10/2016 DORA JOSEPHINE M [employer] Ot R05 COUGH 02/22/2016 JOSEPHINE JOHN [employer] Ot J44.9 CHRONIC OBSTRUCTIVE PULMONARY DISEASE , U 02/22/2016 JOSEPHINE JOHN [employer] Ot R05 COUGH 02/23/2016 JOSEPHINE JOHN [employer] Ot I10 ESSENTIAL (PRIMARY) HYPERTENSION 02/23/2016 JOSEPHINE JOHN [employer] Ot R41.0 DISORIENTATION, UNSPECIFIED 02/23/2016 JOSEPHINE JOHN [employer] Ot R44.3 HALLUCINATIONS, UNSPECIFIED 02/27/2016 JOSEPHINE JOHN [employer] Ot I10 ESSENTIAL (PRIMARY) HYPERTENSION 02/27/2016 JOSEPHINE JOHN [employer]POR[employer]ER[employer] Ot R41.0 DISORIENTATION, UNSPECIFIED 02/27/2016 JOSEPHINE JOHN [employer]POR[employer]ER[employer] Ot R44.3 HALLUCINATIONS, UNSPECIFIED 03/08/2016 JOSEPHINE JOHN [employer] Ot E27.9 DISORDER OF ADRENAL GLAND, UNSPECIFIED 03/08/2016 JOSEPHINE JOHN [employer]POR[employer]ER[employer] Ot 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 03/08/2016 JOSEPHINE JOHN [employer] Ot J44.9 CHRONIC OBSTRUCTIVE PULMONARY DISEASE , U 03/08/2016 JOSEPHINE JOHN [employer]POR[employer]ER[employer] Ot R41.0 DISORIENTATION, UNSPECIFIED 03/09/2016 JOSEPHINE JOHN [employer]POR[employer] CON[employer]ER[employer] Ot 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 03/15/2016 JOSEPHINE JOHN [employer] Ot 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 03/29/2016 JOSEPHINE JOHN [employer]POR[employer]ER[employer] Ot E27.9 DISORDER OF ADRENAL GLAND, UNSPECIFIED 03/29/2016 JOSEPHINE JOHN [employer]ER[employer] Ot 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 03/29/2016 JOSEPHINE JOHN [employer]POR[employer] Ot J44.9 CHRONIC OBSTRUCTIVE PULMONARY DISEASE , U 03/29/2016 JOSEPHINE JOHN [employer]POR[employer] Ot R41.0 DISORIENTATION, UNSPECIFIED 04/04/2016 JOSEPHINE JOHN [employer] Ot I10 ESSENTIAL (PRIMARY) HYPERTENSION 04/04/2016 JOSEPHINE JOHN [employer]POR[employer]ER[employer] Ot R41.0 DISORIENTATION, UNSPECIFIED 04/04/2016 JOSEPHINE JOHN [employer]POR[employer]ER[employer] Ot R44.3 HALLUCINATIONS, UNSPECIFIED 04/04/2016 DORAANNETTASVITLANA Drew [employer]PORATE CON[employer]ERGE Ot 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 04/06/2016 DORAANNETTASVITLANA Drew [employer]PORATE [employer]ERGE Ot I10 ESSENTIAL (PRIMARY) HYPERTENSION 04/06/2016 DORA JOSEPHINE M [employer]POR[employer] CON[employer]ERGE Ot R41.0 DISORIENTATION, UNSPECIFIED 04/06/2016 DORAANNETTASVITLANA Drew [employer]PORATE CON[employer]ERGE Ot R44.3 HALLUCINATIONS, UNSPECIFIED 04/06/2016 DORA JOSEPHIEN M [employer]PORATE CONCIERGE Ot E27.9 DISORDER OF ADRENAL GLAND, UNSPECIFIED 04/06/2016 JOHNJOSEPHINE Viki CORPORATE CONCIERGE Ot 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 04/06/2016 DORA JOSEPHINE M [employer]PORATE CON[employer]ERGE Ot J44.9 CHRONIC OBSTRUCTIVE PULMONARY DISEASE , U 04/06/2016 DORA JOSEPHINE M [employer]PORATE CONCIERGE Ot R41.0 DISORIENTATION, UNSPECIFIED 04/06/2016 DORA JOSEPHINE M [employer]POR[employer]ER[employer] Ot 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 07/29/2016 Ot 786.2 COUGH 07/29/2016 Ot 401.9 HYPERTENSION NOS 07/29/2016 Ot 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 07/29/2016 Ot 433.10 CAROTID ARTERY OCCLUSION W O CEREBRAL IN 07/29/2016 Ot 492.0 EMPHYSEMATOUS BLEB 07/29/2016 Ot 786.2 COUGH 07/29/2016 SAMIR SHERIDAN [employer] Ot 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 07/29/2016 AME [...] V58.69 OTH MED,LT,CURRENT USE 07/29/2016 SAMIR SHERIDAN [employer] Ot V67.1 RADIOTHERAPY FOLLOW-UP 07/29/2016 SHERIDANSAMIR Lopez [employer]PORATE CONCIERGE Ot V67.2 CHEMOTHERAPY FOLLOW-UP 07/29/2016 Ot 496 CHR AIRWAY OBSTRUCT NEC 07/29/2016 AME OWENS Ot 496 CHR AIRWAY OBSTRUCT NEC 07/29/2016 AME OWENS Ot 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 07/29/2016 AME OWENS Ot V58.69 OTH MED,LT,CURRENT USE 07/29/2016 AME OWENS Ot V67.1 RADIOTHERAPY FOLLOW-UP 07/29/2016 AME OWENS Charan Ot V67.2 CHEMOTHERAPY FOLLOW-UP 07/29/2016 SAMIR SHERIDANP Ot 496 CHR AIRWAY OBSTRUCT NEC 07/29/2016 SHERIDANSAMIR [employer]PORATE CONCIERGE Ot 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 07/29/2016 SHERIDANSAMIR Lopez [employer]PORATE [employer]ERGE Ot V58.69 OTH MED,LT,CURRENT USE 07/29/2016 SHERIDAN, PINGASCENCION Jessica [employer]PORATE CON[employer]ERGE Ot V67.1 RADIOTHERAPY FOLLOW-UP 07/29/2016 SAMIR SHERIDAN [employer] Ot V67.2 CHEMOTHERAPY FOLLOW-UP 07/29/2016 AME OWENS Charan Ot J44.9 CHRONIC OBSTRUCTIVE PULMONARY DISEASE, U 07/29/2016 AME OWENS Charan Ot Z09 ENCNTR FOR F/U EXAM AFT TRTMT FOR COND O 07/29/2016 AME OWENS Charan Ot 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 07/29/2016 AME OWENS Charan Ot Z85.20 PERSONAL HISTORY OF MALIGNANT NEOPLASM O 07/29/2016 JOSEPHINE JOHN [employer] Ot J44.9 CHRONIC OBSTRUCTIVE PULMONARY DISEASE , U 07/29/2016 JOSEPHINE JOHN [employer] Ot R05 COUGH 07/29/2016 JOSEPHINE JOHN [employer] Ot I10 ESSENTIAL (PRIMARY) HYPERTENSION 07/29/2016 JOSEPHINE JOHN [employer] Ot R41.0 DISORIENTATION, UNSPECIFIED 07/29/2016 JOSEPHINE JOHNP Ot R44.3 HALLUCINATIONS, UNSPECIFIED 07/29/2016 JOSEPHINE JOHN [employer] Ot E27.9 DISORDER OF ADRENAL GLAND, UNSPECIFIED 07/29/2016 JOSEPHINE JOHN [employer] Ot 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 07/29/2016 JOSEPHINE JOHN [employer] Ot J44.9 CHRONIC OBSTRUCTIVE PULMONARY DISEASE , U 07/29/2016 JOSEPHINE JOHN [employer] Ot R41.0 DISORIENTATION, UNSPECIFIED 07/29/2016 JOSEPHINE JOHN [employer]POR[employer]ER[employer] Ot I65.23 OCCLUSION AND STENOSIS OF BILATERAL [...] Z85.819 PRSNL HX OF MALIG NEOPLM OF [facility] SITE LI 08/01/2016 KEVIN HARKINS MD, [...] OBSTRUCTIVE PULMON DISEASE W ACU 08/02/2016 KEVIN HARIKNS MD Ot K29.60 OTHER GASTRITIS WITHOUT BLEEDING [...] Z85.819 PRSNL HX OF [facility]IG [facility]LM [facility] S[facility] 08/02/2016 KEVIN HARKINS MD Ot [...] Z85.819 PRSNL HX OF MALIG NEOPLM OF [facility] SITE LI 08/02/2016 KEVIN HARKINS MD [...] NR Blood erythrocyte morphology finding identification [facility] Comprehensive metabolic panel - 02/21/16 10:02 Serum [...] Status Pt. Type Provider Facility Loc./Unit Complaint [id number] 07/29/2016 14:53:00 2016 12:50:00 DIS Outpatient KEVIN HARKINS MD [facility] 4TH CHF [id number] 10/08/2014 10:52:00 2014 23:59:59 CLS Outpatient SAMIR SHERIDAN [employer] [facility] ONC [id number] 10/02/2013 10:37:00 2013 23:59:59 CLS Outpatient AME OWENS [facility] ONC [id number] 05/15/2013 10:00:00 2013 00:01:00 DIS Outpatient GIULIANO WRIGHT DO [facility] PULM SYNCOPE,COPD [id number] 04/08/2013 12:32:00 2013 23:59:59 CLS Outpatient SMAIR SHERIDAN [employer] [facility] ONC [id number] 03/26/2013 10:51:00 2013 10:40:00 DIS Inpatient KEVIN HARKINS MD [facility] 4TH SYNCOPE,COPD [id number] 09/26/2012 09:27:00 2012 23:59:59 CLS Outpatient AME OWENS [facility] ONC 0V [id number] 09/23/2012 08:32:00 2012 23:59:59 CLS Outpatient SAMIR SHERIDAN [employer] [facility] RAD VOCAL CORD CANCER [id number] 03/09/2016 14:06:00 ACT Outpatient JOSEPHINE JOHNP [facility] RAD RT CAROTID STENOSIS NOTED ON CT [id number] 03/03/2016 07:46:00 ACT Outpatient JOSEPHINE JOHN [facility] RAD COPD CONFUSION [id number] 02/21/2016 09:41:00 ACT Outpatient JOSEPHINE JOHN [employer] [facility] RAD CONFUSION,HALLUCINATIONS [id number] 01/18/2016 11:34:00 ACT Outpatient JOSEPHINE JOHN [facility] RAD COPD,COUGH [id number] 01/18/2016 11:33:00 Document Registration [id number] 10/27/2015 10:19:00 ACT Outpatient AME OWENS [facility] ONC [id number] 07/01/2013 08:00:00 Document Registration [id number] 04/08/2012 10:15:00 Document Registration [id number] 10/04/2011 09:51:00 Document Registration [id number] 09/08/2011 08:00:00 Document Registration [id number] 05/31/2011 09:41:00 Document Registration [id number] 04/11/2011 09:29:00 Document Registration [id number] 04/05/2011 09:52:00 Document Registration [id number] 01/30/2011 10:47:00 Document Registration [id number] 01/23/2011 09:22:00 Document Registration [id number] 01/23/2011 08:52:00 Document Registration [id number] 11/02/2010 13:08:00 Document Registration
--- NOTE | 2016-08-08 10:26 | Diagnostic Imaging Report ---
EXAMINATION: Portable upright radiograph of the chest. INDICATION: CHF. Pneumonia. COMPARISON: 08/07/2016. FINDINGS: There is improvement in the pulmonary aeration and decreasing pulmonary infiltrates compared to the prior study. There is background interstitial thickening noted which is mostly new compared to a study from February 2016, compatible with an infectious process with possible volume overload component. The heart size is borderline enlarged. No effusion or pneumothorax. The mediastinum and domo appear unremarkable. IMPRESSION: Improving bilateral predominantly interstitial infiltrates. Dictated by: Dictated on workstation # [id number]
[2016-08-08] MEDS: SENNA W/DOCUSATE (SENOKOT S) TABLET PO SCH (20:03)
[2016-08-08] MEDS: POLYETHYLENE GLYCOL 17 GM (MIRALAX) PACK PO SCH (20:03)
[2016-08-08] MEDS ORDERED: cefTRIAXone 1 GM/NS 50 ML IVPB IV SCH ×2 (21:00)
[2016-08-09] VITALS (16 sets, daily range): BP systolic 110–158; BP diastolic 52–95
[2016-08-09] MEDS: RT-ALBUTEROL/IPRATROPIUM 3 ML (DUONEB) VIAL INH SCH ×6 (02:13→21:55)
[2016-08-09 05:08] LABS: MEAN PLATELET VOLUME 8.6 FL (7.4-10.4); RED BLOOD COUNT 3.19 10^6/uL (4.35-5.85); RED CELL DISTRIBUTION WIDTH 13.8 % (10.0-14.5); WHITE BLOOD COUNT 15.2 10^3/uL (4.3-11.0)
[2016-08-09 05:24] LABS: ALANINE AMINOTRANSFERASE 69 U/L (0-55); ALBUMIN 3.1 GM/DL (3.2-4.5); ANION GAP 13 MMOL/L (5-14); ASPARTATE AMINO TRANSFERASE 55 U/L (5-34); BILIRUBIN,TOTAL 0.7 MG/DL (0.1-1.0); BLOOD UREA NITROGEN 32 MG/DL (7-18); BUN/CREATININE RATIO 33; CALCIUM 9.3 MG/DL (8.5-10.1); CARBON DIOXIDE 26 MMOL/L (21-32); CHLORIDE 94 MMOL/L (98-107); CREATININE SERUM 0.98 MG/DL (0.60-1.30); GFR ESTIMATED > 60; GLUCOSE 150 MG/DL (70-105); POTASSIUM 2.7 MMOL/L (3.6-5.0); SODIUM 133 MMOL/L (135-145); TOTAL PROTEIN 6.9 GM/DL (6.4-8.2)
[2016-08-09] MEDS: FUROSEMIDE 40 MG/4 ML INJ (LASIX) IVP SCH ×2 (06:04→16:03)
[2016-08-09] MEDS: KCL 20 MEQ TAB (K-DUR) PO SCH (06:04)
[2016-08-09] MEDS ORDERED: FUROSEMIDE 40 MG/4 ML INJ (LASIX) IVP SCH (07:00)
[2016-08-09] MEDS ORDERED: VANCOMYCIN INJECTION 0.1 MG in NS (IVPB) 250 ML IV SCH (08:00)
[2016-08-09] MEDS ORDERED: VANCOMYCIN 1500 MG/NS 500 ML IVPB IV NR ×2 (08:31)
--- NOTE | 2016-08-09 09:21 | Progress Note (SOAP) ---
Subjective Date Seen by Provider: Aug 09, 2016 Time Seen by Provider: 08:45 Subjective/Events-last exam PT REPORTS FEELING "OKAY" TODAY, BUT ADMITS TO FEELING WEAK, HIS DAUGHTER REPORTS CONCERN FOR HIS STOMACH BEING SO DISTENDED, NURSING STAFF REPORTED THREE LARGE BOWEL MOVEMENTS YESTERDAY Review of Systems General: Fatigue, Malaise HEENT: No Head Aches Pulmonary: Dyspnea, Cough Cardiovascular: No: Chest Pain Gastrointestinal: Abdominal Pain (DISTENDED), No: Nausea Neurological: Confusion, Weakness Objective Exam Vital Signs Date Time Temp Pulse Resp B/P (MAP) Pulse Ox O2 Delivery O2 Flow Rate FiO2 08/09/16 07:00 85 08/09/16 06:54 97 High Flow N/C 10.00 08/09/16 06:00 83 13 139/78 99 NIV Bilevel 45.00 08/09/16 05:00 82 14 158/71 99 NIV Bilevel 45.00 08/09/16 04:07 89 22 100 45.00 08/09/16 04:00 92 28 157/76 97 NIV Bilevel 45.00 08/09/16 04:00 NIV Bilevel 45 08/09/16 03:00 86 13 154/92 99 NIV Bilevel 45.00 08/09/16 02:13 82 22 100 45.00 08/09/16 02:00 81 16 143/79 99 NIV Bilevel 45.00 08/09/16 01:00 80 08/09/16 01:00 80 11 128/69 99 NIV Bilevel 45.00 08/09/16 00:00 87 22 150/72 95 NIV Bilevel 45.00 08/09/16 00:00 NIV Bilevel 45 08/09/16 00:00 90 20 95 45.00 08/08/16 23:32 97.5 08/08/16 23:00 85 20 137/63 98 NIV Bilevel 45.00 08/08/16 22:24 75 16 100 45.00 08/08/16 22:00 87 22 134/50 98 NIV Bilevel 45.00 08/08/16 21:05 92 NIV Bilevel 45.00 45 08/08/16 21:00 90 22 150/69 92 NIV Bilevel 45.00 08/08/16 20:30 90 23 99 45.00 08/08/16 20:00 97 25 145/69 93 NIV Bilevel 45.00 08/08/16 20:00 NIV Bilevel 45 08/08/16 19:00 93 08/08/16 19:00 94 24 139/76 98 NIV Bilevel 45.00 08/08/16 18:28 90 31 97 45.00 08/08/16 18:00 90 31 166/87 90 NIV Bilevel 45.00 08/08/16 17:00 82 18 136/66 94 NIV Bilevel 45.00 08/08/16 16:00 Nasal Cannula 6.00 08/08/16 16:00 100.0 08/08/16 16:00 88 26 114/87 90 NIV Bilevel 45.00 08/08/16 15:00 76 14 165/76 100 NIV Bilevel 45.00 08/08/16 14:57 86 16 100 45.00 08/08/16 14:00 100 27 156/93 94 NIV Bilevel 45.00 08/08/16 13:00 86 18 94 NIV Bilevel 45.00 08/08/16 13:00 88 08/08/16 12:00 Nasal Cannula 6.00 08/08/16 12:00 100.4 08/08/16 12:00 77 12 143/64 96 NIV Bilevel 45.00 08/08/16 11:00 86 24 137/61 94 NIV Bilevel 45.00 08/08/16 10:46 92 Nasal Cannula 6.00 08/08/16 10:00 86 27 156/69 94 NIV Bilevel 45.00 I & O 08/09/16 07:00 Intake Total 380 ml Output Total 1675 ml Balance -1295 ml Capillary Refill : Less Than 3 Seconds General Appearance: WD/WN, Mild Distress Neck: Supple Respiratory: Chest Non Tender, Crackles, Decreased Breath Sounds Cardiovascular: Regular Rate, Rhythm Gastrointestinal: abnormal bowel sounds (HIGH PITCHED SOUNDS IN ABDOMEN, DISTENDED) Extremity: Pedal Edema (TRACE) Neurologic/Psychiatric: Alert, Other (ORIENTED TO PERSON, NOT PLACE OR TIME) Skin: Warm/Dry Results Lab Laboratory Tests 08/09/16 04:00: White Blood Count 15.2H, Red Blood Count 3.19L, Hemoglobin 9.5L, Hematocrit 29L , Mean Corpuscular Volume 91, Mean Corpuscular Hemoglobin 30, Mean Corpuscular Hemoglobin Concent 33, Red Cell Distribution Width 13.8, Platelet Count 447H, Mean Platelet Volume 8.6, Sodium Level 133L, Potassium Level 2.7L, Chloride Level 94L, Carbon Dioxide Level 26, Anion Gap 13, Blood Urea Nitrogen 32H, Creatinine 0.98, Estimat Glomerular Filtration Rate > 60, BUN/Creatinine Ratio 33, Glucose Level 150H, Calcium Level 9.3, Total Bilirubin 0.7, Aspartate Amino Transf (AST/SGOT) 55H, Alanine Aminotransferase (ALT/SGPT) 69H, Alkaline Phosphatase 91, B-Type Natriuretic Peptide 153.4H, Total Protein 6.9, Albumin 3.1L Microbiology 08/07/16 Blood Culture - Preliminary, Resulted No growth 08/08/16 Gram Stain - Final, Resulted 08/08/16 Sputum Culture - Preliminary, Resulted Staphylococcus Aureus Assessment/Plan Assessment/Plan Assess & Plan/Chief Complaint ACUTE PULMONARY EDEMA MRSA PNEUMONIA COPD ANEMIA CHF HX OF THROAT CANCER DEMENTIA WITH BEHAVIORS HYPOKALEMIA HYPOXEMIA HYPERTENSION CONSTIPATION POSSIBLE ILEUS BPH INSOMNIA PNEUMONIA WITH CHRONIC COPD MRSA IN SPUTUM - CHEST XRAY SHOWED PT HAS PNEUMONIA - STARTED VANCOMYCIN TODAY. CHF/PULMONARY EDEMA - CONTINUE WITH LASIX - MONITOR BNP TOMORROW. ANEMIA - - MONITOR CBC TOMORROW. HX OF THROAT CANCER- SUPPORTIVE CARE DEMENTIA WITH BEHAVIORS - CONTINUE WITH ARICEPT AND SUPPORTIVE CARE FOR THE PATIENT, HE WILL RETURN TO THE HALF-WAY ON DISCHARGE. HYPOKALEMIA - TREAT WITH IV POTASSIUM SUPPLEMENTATION. HYPOXEMIA - IMPROVED ON CURRENT OXYGEN THERAPY - START INCENTIVE SPIROMETRY HYPERTENSION - CHRONIC - MONITOR BLOOD PRESSURE READINGS. POSSIBLE ILEUS - RECENT CONSTIPATION - PT HAD 3 BM'S YESTERDAY - WILL CHECK KUB BPH - PT ON FLOMAX AT HOME, IN HOSPITAL ON ALFUZOSIN. INSOMNIA - ON MELATONIN HOLD PO MEDICATIONS UNTIL KUB SHOWS PT DOES OR DOES NOT HAVE ILEUS THEN WILL RESTART MEDICATION DEPENDING ON HIS GI STATUS PT NOT SEPTIC - THEREFORE DID NOT START ON SEPSIS PROTOCOL WITH FLUIDS - PT HAS ACUTE PULMONARY EDEMA AND STARTING ON IV FLUIDS AT SEPSIS PROTOCOL RATE WOULD HAVE CAUSED WORSENING PULMONARY EDEMA AND POSSIBLE PATIENT DEMISE. Clinical Quality Measures DVT/VTE Risk/Contraindication: Risk Factor Score Per Nursin RFS Level Per Nursing on Admit: 4+=Very High KEVIN HARKINS MD Aug 09, 2016 09:20
[2016-08-09] MEDS ORDERED: VANCOMYCIN 1250 MG/NS 250 ML IVPB IV NR ×2 (09:30)
[2016-08-09] MEDS: POTASSIUM CL 10MEQ/50ML IVPB 50 ML IV SCH ×4 (10:00→12:30)
--- NOTE | 2016-08-09 10:59 | Diagnostic Imaging Report ---
EXAMINATION: Upright and supine views of the abdomen. INDICATION: Abdominal distention. FINDINGS: There is significant gaseous distention of the colon with dilatation of the cecum up to 11 cm. There are prominent air-fluid levels in the cecum and ascending colon. The transverse colon is also dilated at 10 CM in caliber. Moderate amount of fecal material seen in the rectum. No obvious wall thickening is seen. Mild gaseous distention of small bowel loops are also noted. There is fecal material seen in the colon distal loops and in the rectum. Evidence of prior herniorrhaphy with mesh placement in inguinal regions is noted. There is no pneumoperitoneum. Surgical clips in the upright abdomen noted. IMPRESSION: There is gaseous distention with moderate dilatation of the right and transverse colon segments with no significant fold thickening suggested. This could be related to ileus. Toxic megacolon is less likely given the lack of fold thickening. Correlate clinically and with followup exams. Dictated by: Dictated on workstation # [id number]
[2016-08-09] MEDS: SENNA W/DOCUSATE (SENOKOT S) TABLET PO SCH ×2 (11:36→20:38)
--- NOTE | 2016-08-09 11:52 | Physical Therapy Progress Note ---
Therapy Progress Note Attempted PT eval, pt unavailable at this time due to in a procedure to get a PICC line. ABNER OJEDA PT Aug 09, 2016 11:52
[2016-08-09] MEDS: D5 NS 1000 ML IV SOLUTION 1,000 ML IV SCH (14:09)
--- NOTE | 2016-08-09 15:39 | Physical Therapy Evaluation ---
PT Evaluation-General Medical Diagnosis Admission Date Aug 07, 2016 at 21:25 Medical Diagnosis: heart failure; pneumonia; ileus Onset Date: Aug 08, 2016 Therapy Diagnosis Therapy Diagnosis: weakness; abn gait Height/Weight Height (Feet): 5 Height (Inches): 8.00 Weight (Pounds): 158 Weight (Ounces): 0.9 Precautions Precautions/Isolations: Droplet Isolation, Fall Prevention Referral Physician: Cornelio Reason for Referral: Evaluation/Treatment Medical History Pertinent Medical History: COPD, GERD, HTN Additional Medical History dementia, seizure disorder, high cholesterol Current History Pt admitted with SOA and found to have heart failure and pneumonia; he has also been found to have an ileus. Reviewed History: Yes Social History Home: Assisted Living Entry Into Home: Level Entry Prior/Core FIM Prior Level of Function Functional [place] Measure 0=Not Assessed/NA 4=Minimal Assistance 1=Total Assistance 5=Supervision or Setup 2=Maximal Assistance 6=Modified [place] 3=Moderate Assistance 7=Complete [place] Unsure, pt unable to give history. PT Evaluation-Current Subjective Agrees to stand at EOB. Pain Numeric Pain Scale: 0-No Pain Location: No Pain Reported Objective Patient Orientation: Person, Confused, Time Problem Solving: Poor ROM/Strength ROM Lower Extremities wFL Strenght Lower Extremities Grossly 4/5 throughout B LE;s Integumentary/Posture Integumentary Refer to nursing notes. Bowel Incontinence: No Bladder Incontinence: No Posture normal and symmetrical Neuromuscular (Tone, Coordination, Reflexes) delayed but intact Sensory Vision: Functional Hearing: Functional Hand Dominance: Right Sensation Right Lower Extremit: Intact Sensation Left Lower Extremity: Intact Transfers Functional [place] Measure 0=Not Assessed/NA 4=Minimal Assistance 1=Total Assistance 5=Supervision or Setup 2=Maximal Assistance 6=Modified [place] 3=Moderate Assistance 7=Complete [place] Transfers (B, C, W/C) (FIM): 4 min assist primarily because he requires min assist to prompt with tactile cues and light lifting assit. Gait Mode of Locomotion: Walk Comments/Gait Description Stood EOB with FWW and performed marching and walking in place. Pt with multiple attachments that made ambulation difficult this date. CGA for standing balance. Balance Sitting Static: Good Sitting Dynamic: Good Standing Static: Fair Standing Dynamic: Fair Treatment Standing ther ex at EOB mini squats and calf raises; Assessment/Needs Presents with above diagnosis and will benefit from skilled PT to address functional mobility to enhance his medical recovery. Rehab Potential: Fair PT Nursing Home Goals Telephone Quotation Clerk Goals PT Telephone Quotation Clerk Goals Time Frame: Aug 16, 2016 Transfers (B,C,W/C) (FIM): 6 Gait (FIM): 6 PT Plan Problem List Problem List: Activity Tolerance, Functional Strength, Safety, Balance, Gait, Transfer, Bed Mobility Treatment/Plan Treatment Plan: Continue Plan of Care Treatment Plan: Bed Mobility, Education, Functional Activity Herminia, Functional Strength, Gait, Safety, Therapeutic Exercise, Transfers Treatment Duration: Aug 16, 2016 Visits Per Week: 6 Safety Risks/Education Patient Education: Transfer Techniques, Safety Issues Teaching Recipient: Patient Teaching Methods: Discussion Response to Teaching: Reinforcement Needed Time/GCodes Time In: 1450 Time Out: 1515 Total Billed Treatment Time: 25 Total Billed Treatment visit EVM 15 FA 10 ABNER OJEDA PT Aug 09, 2016 15:39
[2016-08-09] MEDS ORDERED: LIDOCAINE UROJET 2% GEL 10 ML PKG TOP NR (16:00)
[2016-08-09] MEDS ORDERED: ACETAMINOPHEN 650 MG SUPP (TYLENOL) PR NR (16:00)
[2016-08-09] MEDS: HALOPERIDOL 5 MG/ML (HALDOL) AMP IM PRN (19:09)
[2016-08-09] MEDS: VANCOMYCIN 1 GM/NS 250 ML IVPB IV SCH ×2 (19:45)
[2016-08-09] MEDS: POLYETHYLENE GLYCOL 17 GM (MIRALAX) PACK PO SCH (20:38)
[2016-08-10] VITALS (7 sets, daily range): BP systolic 144–172; BP diastolic 46–82
[2016-08-10] MEDS: RT-ALBUTEROL/IPRATROPIUM 3 ML (DUONEB) VIAL INH SCH ×6 (02:10→22:37)
[2016-08-10 04:04] LABS: MEAN PLATELET VOLUME 8.3 FL (7.4-10.4); RED BLOOD COUNT 3.16 10^6/uL (4.35-5.85); RED CELL DISTRIBUTION WIDTH 14.2 % (10.0-14.5); WHITE BLOOD COUNT 17.1 10^3/uL (4.3-11.0)
[2016-08-10 04:28] LABS: ALANINE AMINOTRANSFERASE 72 U/L (0-55); ANION GAP 12 MMOL/L (5-14); ASPARTATE AMINO TRANSFERASE 43 U/L (5-34); BILIRUBIN,TOTAL 0.8 MG/DL (0.1-1.0); BLOOD UREA NITROGEN 31 MG/DL (7-18); BUN/CREATININE RATIO 37; CALCIUM 8.5 MG/DL (8.5-10.1); CARBON DIOXIDE 24 MMOL/L (21-32); CHLORIDE 103 MMOL/L (98-107); CREATININE SERUM 0.83 MG/DL (0.60-1.30); GFR ESTIMATED > 60; GLUCOSE 131 MG/DL (70-105); POTASSIUM 3.1 MMOL/L (3.6-5.0); SODIUM 139 MMOL/L (135-145); TOTAL PROTEIN 6.2 GM/DL (6.4-8.2)
[2016-08-10] MEDS: FUROSEMIDE 40 MG/4 ML INJ (LASIX) IVP SCH ×2 (06:12→17:28)
[2016-08-10] MEDS: D5 NS 1000 ML IV SOLUTION 1,000 ML IV SCH ×2 (06:13→16:37)
[2016-08-10] MEDS: HALOPERIDOL 5 MG/ML (HALDOL) AMP IM PRN ×3 (06:34→20:56)
[2016-08-10] MEDS: KCL 20 MEQ TAB (K-DUR) PO SCH (06:55)
[2016-08-10] MEDS ORDERED: TROUGH ORDER-PHARMACY XX NR (07:00)
[2016-08-10] MEDS: POTASSIUM CL 10MEQ/50ML IVPB 50 ML IV SCH ×4 (07:40→10:35)
--- NOTE | 2016-08-10 08:42 | Progress Note (SOAP) ---
Subjective Date Seen by Provider: Aug 10, 2016 Time Seen by Provider: 08:30 Subjective/Events-last exam PT REPORTS THAT HE IS FEELING "FINE", BUT DOES HAVE SOME ABDOMINAL DISCOMFORT. HE WANTS TO EAT/DRINK. HE COMPLAINS OF BEING TIRED. Review of Systems General: Fatigue, Malaise HEENT: No Head Aches Pulmonary: Dyspnea, Cough Cardiovascular: No: Chest Pain Gastrointestinal: Abdominal Pain, No: Nausea Genitourinary: No Dysuria Neurological: Confusion, Weakness Objective Exam Vital Signs Date Time Temp Pulse Resp B/P (MAP) Pulse Ox O2 Delivery O2 Flow Rate FiO2 08/10/16 08:00 98.4 101 22 165/76 96 High Flow N/C 8.00 08/10/16 07:24 98 High Flow N/C 8.00 08/10/16 07:00 96 08/10/16 04:09 74 16 99 45.00 08/10/16 04:00 NIV Bilevel 45 08/10/16 03:57 98.0 92 22 158/73 98 NIV Bilevel 45.00 08/10/16 02:10 104 22 95 45.00 08/10/16 02:00 NIV Bilevel 45.00 08/10/16 01:00 84 08/10/16 00:10 98.5 08/10/16 00:00 95 Nasal Cannula 8.00 08/09/16 21:55 91 High Flow N/C 8.00 08/09/16 21:05 Nasal Cannula 8.00 08/09/16 20:24 98.4 103 19 146/70 96 High Flow N/C 8.00 08/09/16 20:02 116 30 95 45.00 08/09/16 20:00 Nasal Cannula 8.00 08/09/16 19:00 111 08/09/16 18:37 101 24 100 45.00 08/09/16 16:10 Nasal Cannula 6.00 08/09/16 16:00 Nasal Cannula 6.00 08/09/16 16:00 99.8 95 15 151/79 92 High Flow N/C 6.00 08/09/16 14:29 92 High Flow N/C 8.00 08/09/16 13:00 92 08/09/16 12:00 Nasal Cannula 8.00 08/09/16 11:00 85 17 100 High Flow N/C 8.00 08/09/16 09:00 80 23 129/58 95 High Flow N/C 8.00 08/09/16 09:00 Nasal Cannula 8.00 I & O 08/10/16 07:00 Intake Total 1750 ml Output Total 1425 ml Balance 325 ml Capillary Refill : Less Than 3 Seconds General Appearance: No Apparent Distress, WD/WN HEENT: PERRL/EOMI, Pharynx Normal Neck: Full Range of Motion, Supple Respiratory: Chest Non Tender, Decreased Breath Sounds Cardiovascular: Regular Rate, Rhythm Gastrointestinal: distended, tenderness Extremity: Normal Capillary Refill, No Pedal Edema Neurologic/Psychiatric: Alert, Other (ORIENTED TO PERSON, NOT PLACE OR TIME) Skin: Warm/Dry Lymphatic: No Adenopathy Results Lab Laboratory Tests 08/10/16 03:20: White Blood Count 17.1H, Red Blood Count 3.16L, Hemoglobin 9.4L, Hematocrit 29L , Mean Corpuscular Volume 92, Mean Corpuscular Hemoglobin 30, Mean Corpuscular Hemoglobin Concent 33, Red Cell Distribution Width 14.2, Platelet Count 411H, Mean Platelet Volume 8.3, Sodium Level 139, Potassium Level 3.1L, Chloride Level 103, Carbon Dioxide Level 24, Anion Gap 12, Blood Urea Nitrogen 31H, Creatinine 0.83, Estimat Glomerular Filtration Rate > 60, BUN/Creatinine Ratio 37, Glucose Level 131H, Calcium Level 8.5, Total Bilirubin 0.8, Aspartate Amino Transf (AST/SGOT) 43H, Alanine Aminotransferase (ALT/SGPT) 72H, Alkaline Phosphatase 86, B-Type Natriuretic Peptide 124.7H, Total Protein 6.2L, Albumin 3.0L 08/10/16 07:15: Vancomycin Level Trough 15.8 Microbiology 08/07/16 Blood Culture - Preliminary, Resulted No growth 08/08/16 Gram Stain - Final, Resulted 08/08/16 Sputum Culture - Preliminary, Resulted Staphylococcus Aureus Assessment/Plan Assessment/Plan Assess & Plan/Chief Complaint ACUTE PULMONARY EDEMA MRSA PNEUMONIA COPD ANEMIA CHF HX OF THROAT CANCER DEMENTIA WITH BEHAVIORS HYPOKALEMIA HYPOXEMIA HYPERTENSION CONSTIPATION POSSIBLE ILEUS BPH INSOMNIA PNEUMONIA WITH CHRONIC COPD MRSA IN SPUTUM - CHEST XRAY SHOWED PT HAS PNEUMONIA - STARTED VANCOMYCIN TODAY. CHF/PULMONARY EDEMA - CONTINUE WITH LASIX - MONITOR BNP TOMORROW. ANEMIA - - MONITOR CBC TOMORROW. HX OF THROAT CANCER- SUPPORTIVE CARE DEMENTIA WITH BEHAVIORS - CONTINUE WITH ARICEPT AND SUPPORTIVE CARE FOR THE PATIENT, HE WILL RETURN TO THE RETIREMENT ON DISCHARGE. HYPOKALEMIA - TREAT WITH IV POTASSIUM SUPPLEMENTATION. HYPOXEMIA - IMPROVED ON CURRENT OXYGEN THERAPY - START INCENTIVE SPIROMETRY HYPERTENSION - CHRONIC - MONITOR BLOOD PRESSURE READINGS. ILEUS - RECENT CONSTIPATION - PT HAD 3 BM'S YESTERDAY - KUB PENDING THIS MORNING - YESTERDAY SHOWED ILEUS PATTERN DEVELOPING BPH - PT ON FLOMAX AT HOME, IN HOSPITAL ON ALFUZOSIN. INSOMNIA - ON MELATONIN HOLD PO MEDICATIONS UNTIL KUB SHOWS PT DOES OR DOES NOT HAVE ILEUS THEN WILL RESTART MEDICATION DEPENDING ON HIS GI STATUS PT NOT SEPTIC - THEREFORE DID NOT START ON SEPSIS PROTOCOL WITH FLUIDS - PT HAS ACUTE PULMONARY EDEMA AND STARTING ON IV FLUIDS AT SEPSIS PROTOCOL RATE WOULD HAVE CAUSED WORSENING PULMONARY EDEMA AND POSSIBLE PATIENT DEMISE. Clinical Quality Measures DVT/VTE Risk/Contraindication: Risk Factor Score Per Nursin RFS Level Per Nursing on Admit: 4+=Very High KEVIN HARKINS MD Aug 10, 2016 08:42
[2016-08-10] MEDS ORDERED: BISACODYL 10 MG SUPP (DULCOLAX) PR NR (08:53)
--- NOTE | 2016-08-10 09:23 | Physical Therapy Daily Note ---
PT Daily Note-Current Subjective Agrees to PT. Transfers Functional [place] Measure 0=Not Assessed/NA 4=Minimal Assistance 1=Total Assistance 5=Supervision or Setup 2=Maximal Assistance 6=Modified [place] 3=Moderate Assistance 7=Complete IndependenceIRFPAI Quality Coding Scale 6 Independent with activity with or without an assistive device 5 Patient requires set up or clean up by helper. Patient completes activity by themselves 4 Supervision or touching assist (CGA). [place] provide cues , steadying assist 3 The helper provides less than half the effort to complete the activity 2 The helper provides more than half the effort to complete the activity 1 Dependent. The helper does all the effort to complete an activity 7 Patient refused to complete or attempt activity 9 The patient did not perform the activity before the current illness or injury 88 Not attempted due to Medical conditions or safety concerns Treatments Pt requires min assist with bed mobility primarily due to needing tactile cues to sequence. Sit to stand with CGA. Pt ambulated x 150 ft with fWW with CGA and tactile cues to guide. Pt with dementia and just needs guidance for turns and to stay on path. Pt up in chair post treatment with sitter present. Assessment Current Status: Good Progress Pt tolerated well and mobilized with little assist. PT [facility] Goals [facility] Goals PT [facility] Goals Time Frame: Aug 16, 2016 Transfers (B,C,W/C) (FIM): 6 Gait (FIM): 6 PT Plan Problem List Problem List: Activity Tolerance, Functional Strength Treatment/Plan Treatment Plan: Continue Plan of Care Treatment Plan: Bed Mobility, Education, Functional Activity Herminia, Functional Strength, Gait, Safety, Therapeutic Exercise, Transfers Treatment Duration: Aug 16, 2016 Visits Per Week: 6 Time/GCodes Time In: 850 Time Out: 905 Total Billed Treatment Time: 15 Total Billed Treatment visit GT 15 ABNER OJEDA PT Aug 10, 2016 09:23
[2016-08-10] MEDS: VANCOMYCIN 1 GM/NS 250 ML IVPB IV SCH ×4 (09:33→20:36)
[2016-08-10] MEDS: SENNA W/DOCUSATE (SENOKOT S) TABLET PO SCH ×2 (10:09→20:37)
--- NOTE | 2016-08-10 16:03 | Diagnostic Imaging Report ---
EXAMINATION: Upright and supine views of the abdomen. INDICATION: Abdominal distention. COMPARISON: 08/09/16. FINDINGS: There is marked dilatation of the colon with mostly gas content and air-fluid level seen in the cecum. There is overall minimal change compared to 08/09/16. There is no pneumoperitoneum. Surgical changes in the groin on both sides probably relates to inguinal hernia repair with mesh. There are also surgical clips in the upright abdomen. IMPRESSION: Marked dilatation and gaseous distention of the colon seen without change from the prior exam, may relate to ileus. Dictated by: Dictated on workstation # [id number]
[2016-08-10] MEDS: POLYETHYLENE GLYCOL 17 GM (MIRALAX) PACK PO SCH (20:37)
[2016-08-11] VITALS (9 sets, daily range): BP systolic 104–169; BP diastolic 58–93
[2016-08-11] MEDS: RT-ALBUTEROL/IPRATROPIUM 3 ML (DUONEB) VIAL INH SCH ×6 (03:01→23:11)
[2016-08-11 04:21] LABS: MEAN PLATELET VOLUME 7.9 FL (7.4-10.4); RED BLOOD COUNT 2.88 10^6/uL (4.35-5.85); RED CELL DISTRIBUTION WIDTH 14.2 % (10.0-14.5); WHITE BLOOD COUNT 12.1 10^3/uL (4.3-11.0)
[2016-08-11 04:46] LABS: ALANINE AMINOTRANSFERASE 64 U/L (0-55); ALBUMIN 2.9 GM/DL (3.2-4.5); ANION GAP 8 MMOL/L (5-14); ASPARTATE AMINO TRANSFERASE 26 U/L (5-34); BILIRUBIN,TOTAL 0.8 MG/DL (0.1-1.0); BLOOD UREA NITROGEN 23 MG/DL (7-18); BUN/CREATININE RATIO 29; CALCIUM 8.5 MG/DL (8.5-10.1); CARBON DIOXIDE 28 MMOL/L (21-32); CHLORIDE 107 MMOL/L (98-107); GFR ESTIMATED > 60; GLUCOSE 135 MG/DL (70-105); POTASSIUM 3.1 MMOL/L (3.6-5.0); SODIUM 143 MMOL/L (135-145)
[2016-08-11] MEDS: D5 NS 1000 ML IV SOLUTION 1,000 ML IV SCH ×2 (06:05→09:09)
[2016-08-11] MEDS: KCL 20 MEQ TAB (K-DUR) PO SCH (06:06)
[2016-08-11] MEDS: FUROSEMIDE 40 MG/4 ML INJ (LASIX) IVP SCH ×2 (06:18→17:12)
[2016-08-11] MEDS ORDERED: TROUGH ORDER-PHARMACY XX NR (07:00)
--- NOTE | 2016-08-11 08:32 | Progress Note (SOAP) ---
Subjective Date Seen by Provider: Aug 11, 2016 Time Seen by Provider: 08:30 Subjective/Events-last exam PT FATIGUED/SLEEPY THIS MORNING, AWAKENS TO VOICE. PER STAFF HE PASSED AN UNEVENTFUL NIGHT. PT'S FAMILY NOT IN ATTENDANCE THIS MORNING. Review of Systems General: Fatigue HEENT: No Head Aches Pulmonary: Dyspnea, Cough Cardiovascular: No: Chest Pain Gastrointestinal: Abdominal Pain, No: Nausea Neurological: Confusion, Weakness Objective Exam Vital Signs Date Time Temp Pulse Resp B/P (MAP) Pulse Ox O2 Delivery O2 Flow Rate FiO2 08/11/16 07:58 98.3 88 17 169/92 98 High Flow N/C 8.00 08/11/16 07:00 81 08/11/16 06:13 97 High Flow N/C 7.00 08/11/16 04:29 98.0 98 23 133/59 99 NIV Bilevel 10.00 08/11/16 04:00 High Flow N/C 8.00 08/11/16 03:01 81 15 99 45.00 08/11/16 01:00 109 08/11/16 01:00 105 24 94 45.00 08/11/16 00:18 99.0 104 21 154/71 93 High Flow N/C 08/11/16 00:00 High Flow N/C 8.00 08/10/16 22:37 100 High Flow N/C 8.00 08/10/16 21:00 Nasal Cannula 8.00 08/10/16 20:00 High Flow N/C 8.00 08/10/16 19:59 98.6 104 21 171/82 95 High Flow N/C 8.00 08/10/16 19:00 110 08/10/16 18:28 98 High Flow N/C 8.00 08/10/16 16:37 High Flow N/C 8.00 08/10/16 16:06 98.4 96 18 144/75 96 High Flow N/C 8.00 08/10/16 14:36 92 08/10/16 14:33 92 High Flow N/C 8.00 08/10/16 13:00 84 08/10/16 12:00 97.8 93 18 172/77 97 NIV Bilevel 45.00 08/10/16 12:00 High Flow N/C 8.00 I & O 08/11/16 07:00 Intake Total 1450 ml Output Total 2250 ml Balance -800 ml Capillary Refill : Less Than 3 Seconds General Appearance: No Apparent Distress, WD/WN HEENT: PERRL/EOMI Neck: Full Range of Motion, Supple Respiratory: Chest Non Tender, Decreased Breath Sounds Cardiovascular: Regular Rate, Rhythm Gastrointestinal: other (NO BOWEL SOUNDS THIS MORNING, DISTENDED, TYMPANIC TO PERCUSSION, KUB PENDING) Extremity: Normal Capillary Refill Neurologic/Psychiatric: Other (ORIENTED TO PERSON, NOT PLACE, NOT TIME) Skin: Warm/Dry Results Lab Laboratory Tests 08/11/16 04:12: White Blood Count 12.1H, Red Blood Count 2.88L, Hemoglobin 8.6L, Hematocrit 27L , Mean Corpuscular Volume 95, Mean Corpuscular Hemoglobin 30, Mean Corpuscular Hemoglobin Concent 31L, Red Cell Distribution Width 14.2, Platelet Count 349, Mean Platelet Volume 7.9, Sodium Level 143, Potassium Level 3.1L, Chloride Level 107, Carbon Dioxide Level 28, Anion Gap 8, Blood Urea Nitrogen 23H, Creatinine 0.80, Estimat Glomerular Filtration Rate > 60, BUN/Creatinine Ratio 29, Glucose Level 135H, Calcium Level 8.5, Total Bilirubin 0.8, Aspartate Amino Transf (AST/SGOT) 26, Alanine Aminotransferase (ALT/SGPT) 64H, Alkaline Phosphatase 76, B-Type Natriuretic Peptide 174.6H, Total Protein 6.0L, Albumin 2.9L 08/11/16 07:20: Vancomycin Level Trough 16.1 Microbiology 08/07/16 Blood Culture - Preliminary, Resulted No growth 08/08/16 Gram Stain - Final, Complete 08/08/16 Sputum Culture - Final, Complete Staphylococcus Aureus Assessment/Plan Assessment/Plan Assess & Plan/Chief Complaint ACUTE PULMONARY EDEMA MRSA PNEUMONIA COPD ANEMIA CHF HX OF THROAT CANCER DEMENTIA WITH BEHAVIORS HYPOKALEMIA HYPOXEMIA HYPERTENSION CONSTIPATION ILEUS BPH INSOMNIA PNEUMONIA WITH CHRONIC COPD MRSA IN SPUTUM - CHEST XRAY SHOWED PT HAS PNEUMONIA - STARTED VANCOMYCIN, LEVEL HIGH TODAY - MONITOR LABS CHF/PULMONARY EDEMA - CONTINUE WITH LASIX - MONITOR BNP TOMORROW. ANEMIA - - MONITOR CBC TOMORROW. HX OF THROAT CANCER- SUPPORTIVE CARE DEMENTIA WITH BEHAVIORS - CONTINUE WITH ARICEPT WHEN PT ABLE TO TAKE PO AND SUPPORTIVE CARE FOR THE PATIENT, HE WILL RETURN TO [facility] ON DISCHARGE. HYPOKALEMIA - TREAT WITH IV POTASSIUM SUPPLEMENTATION PRN. HYPOXEMIA - IMPROVED ON CURRENT OXYGEN THERAPY - STARTED INCENTIVE SPIROMETRY HYPERTENSION - CHRONIC - MONITOR BLOOD PRESSURE READINGS. ILEUS - KUB YESTERDAY SHOWED PERSISTENT ILEUS - CONSULT TO DR. ARTHUR TODAY. BPH - PT ON FLOMAX AT HOME - DUE TO NPO STATUS, NOT ABLE TO START ALFUZOSIN IN HOSPITAL INSOMNIA - WILL START MELATONIN IN HOSPITAL WHEN ABLE TO TAKE PO HOLD PO MEDICATIONS DUE TO ILEUS - PT NPO PT NOT SEPTIC - THEREFORE DID NOT START ON SEPSIS PROTOCOL WITH FLUIDS - PT HAS ACUTE PULMONARY EDEMA AND STARTING ON IV FLUIDS AT SEPSIS PROTOCOL RATE WOULD HAVE CAUSED WORSENING PULMONARY EDEMA AND POSSIBLE PATIENT DEMISE. Clinical Quality Measures DVT/VTE Risk/Contraindication: Risk Factor Score Per Nursin RFS Level Per Nursing on Admit: 4+=Very High KEVIN HARKINS MD Aug 11, 2016 08:32
[2016-08-11] MEDS: SENNA W/DOCUSATE (SENOKOT S) TABLET PO SCH ×2 (09:09→20:19)
[2016-08-11] MEDS: VANCOMYCIN 1 GM/NS 250 ML IVPB IV SCH ×4 (09:09→20:19)
--- NOTE | 2016-08-11 09:13 | Diagnostic Imaging Report ---
INDICATION: Pleural effusion and pneumonia. PA and lateral chest obtained at 9:04 AM and compared with 08/08/16. There are diffuse mixed interstitial and alveolar infiltrates throughout both lungs which are similar to the prior study. Heart is normal in size. Mediastinal silhouette is unremarkable. There is no pneumothorax or significant pleural fluid. Right-sided PICC line tip is in the right atrium. There is diffuse distention of the visualized large and small bowel loops in the upper abdomen, correlate with abdominal film. IMPRESSION: Diffuse mixed interstitial and alveolar infiltrates throughout both lungs as above. No pneumothorax or pleural fluid. Marked dilatation of large and small bowel loops in the upper abdomen, correlate with KUB. Dictated by: Dictated on workstation # [id number]
--- NOTE | 2016-08-11 09:19 | Diagnostic Imaging Report ---
Upright and supine views of the abdomen. INDICATION: Ileus. FINDINGS: Compared to 08/10/2016, there is slightly increased marked dilatation of the colon, with predominantly gas contents and a prominent air-fluid level again seen in the cecum. The cecum is 12.2 CM in caliber compared to 11.8 CM on the prior radiograph. There is still no pneumoperitoneum. No evidence of pneumatosis. Surgical clips in the upper right abdomen and suggestion of mesh repair of inguinal hernia is seen. IMPRESSION: Slight worsening in the predominantly gaseous marked dilatation of the colon, presumably related to ileus. Dictated by: Dictated on workstation # [id number]
--- NOTE | 2016-08-11 09:59 | Consultation ---
History of Present Illness History of Present Illness Patient Consulted On(dali/time) 08/11/16 09:53 Time Seen by Provider: 09:00 History of Present Illness Patient came to the ER via EMS from [facility] due to SOB. Patient has a hx of CHF and COPD. He was previously admitted from 07/29-08/02 due to CHF and Pneumonia. While in the hospital, Patient abdomen became distended. Patient at that time complained of abdominal discomfort and KUB showed ILEUS developing. Patient was made NPO and Dr. Mckeon consulted. Allergies and Home Medications Allergies Coded Allergies: prednisone (Unverified Allergy, Mild, SOB, 09/15/08) Home Medications Acetaminophen 500 Mg Tablet, 500 MG PO BID PRN for PAIN-MILD, (Reported) Acetaminophen 500 Mg Tablet, 1,000 MG PO Q8H PRN for TEMP>100.5/SEVERE PAIN, ( Reported) Albuterol Sulfate 18 Gm Hfa.aer.ad, 2 PUFF INH QID PRN for SHORTNESS OF BREATH, (Reported) Amlodipine Besylate 5 Mg Tablet, 5 MG PO BID, (Reported) Aspirin 325 Mg Tab, 325 MG PO DAILY, (Reported) Bisacodyl 5 Mg Tablet.dr, 5 MG PO HS PRN for CONSTIPATION-4TH LINE, (Reported) Budesonide/Formoterol Fumarate 10.2 Gm Hfa.aer.ad, 2 PUFF IH BID, (Reported) Carvedilol 3.125 Mg Tablet, 3.125 MG PO BID, (Reported) Divalproex Sodium 125 Mg Cap, 125 MG PO Q6H PRN for AGITATION, (Reported) Donepezil HCl 5 Mg Tablet, 5 MG PO DAILY, (Reported) Furosemide 20 Mg Tablet, 20 MG PO MoWeFr, (Reported) Ipratropium/Albuterol Sulfate 3 Ml Ampul.neb, 3 ML NEB QID, (Reported) Ipratropium/Albuterol Sulfate 3 Ml Ampul.neb, 3 ML NEB Q6H PRN for SHORTNESS OF BREATH, (Reported) Lactobacillus Acidophilus 1 Each Capsule, 1 CAP PO TID for 10 Days, (Reported) END DATE 08-13-16 Lactulose 20 Gm/30 Ml Solution, 20 GM PO BID, (Reported) Lorazepam 0.5 Mg Tablet, 0.5 MG PO Q4H PRN for MILD AGITATION, (Reported) Lorazepam 0.5 Mg Tablet, 1 MG PO Q4H PRN for SEVERE AGITATION/AGGRESSIVE, ( Reported) TAKES 2 (0.5MG) TABLETS Mag Hydrox/Al Hydrox/Simeth 30 Ml Oral.susp, 30 ML PO Q4H PRN for INDIGESTION, ( Reported) Melatonin/Pyridoxine 1 Each Tablet, 6 MG PO HS, (Reported) TAKES 2 (3MG) TABLETS Menthol/Lanolin/Calamine/Znox 71 Gm Oint, TP QID PRN for EXCORIATION, (Reported) Montelukast Sodium 10 Mg Tablet, 10 MG PO DAILY, (Reported) Pantoprazole Sodium 40 Mg Tablet.dr, 40 MG PO DAILY, (Reported) Polyethylene Glycol 3350 17 Gm Powd.pack, 17 GM PO Q3H PRN for CONSTIPATION-2ND LINE, (Reported) Tamsulosin HCl 0.4 Mg Cap, 0.4 MG PO 1800, (Reported) Trazodone HCl 50 Mg Tablet, 125 MG PO HS, (Reported) TAKES 2 & 1/2 (50MG) TABLETS Past Wpjseos-Ccjwey-Okbaor Hx Patient Social History Alcohol Use: Denies Use Recreational Drug Use: No Smoking Status: Former Smoker Type Used: Cigarettes 2nd Hand Smoke Exposure: No Recent Foreign Travel: No Contact w/Someone Who Travel: No Recent Infectious Disease Expo: No Recent Hopitalizations: Yes Physical Abuse Screen: No Sexual Abuse: No Immunizations Up To Date Tetanus Booster (TDap): Unknown Date of Pneumonia Vaccine: Nov 11, 2009 Date of Influenza Vaccine: Dec 28, 2012 Seasonal Allergies Seasonal Allergies: Yes Surgeries HX Surgeries: Yes (HERNIA REPAIR; SKIN CANCER REMOVALS) Surgeries: Abdominal, Gallbladder Respiratory Hx Respiratory Disorders: Yes (CHRONIC COUGH) Respiratory Disorders: COPD Cardiovascular Hx Cardiac Disorders: Yes (CHF) Cardiac Disorders: High Cholesterol, Hypertension, Syncope Neurological Hx Neurological Disorders: Yes (seizure in past, syncope) Neurological Disorders: Dementia, Seizure Disorder Reproductive System Hx Reproductive Disorders: No Sexually Transmitted Disease: No Genitourinary Hx Genitourinary Disorders: No Gastrointestinal Hx Gastrointestinal Disorders: Yes (gall bladder removed) Gastrointestinal Disorders: Gastroesophageal Reflux, Chronic Constipation Musculoskeletal Hx Musculoskeletal Disorders: Yes (fractured rib) Endocrine Hx Endocrine Disorders: No HEENT HX ENT Disorders: Yes HEENT Disorders: Cataract Loss of Vision: Denies Cancer Hx Cancer: Yes (throat) Cancer: Lung, Skin Psychosocial Hx Psychiatric Problems: Yes Behavioral Health Disorders: Sleep Difficulties, Anxiety Integumentary HX Skin/Integumentary Disorder: Yes (skin cancer lesions-several removed) Blood Transfusions Hx Blood Disorders: No Adverse Reaction to a Blood Tr: No Reviewed Nursing Assessment Reviewed/Agree w Nursing PMH: Yes Family Medical History Significant Family History: Heart Disease, Cancer, Hypertension Family Medial History: Cancer 03 FATHER (lung cancer) grandfather (possibly stomach cancer) Family history: Cardiovascular disease 09 BROTHER Family history: Hypertension 09 BROTHER Heart disease 09 BROTHER Myocardial infarction 09 BROTHER No Family History of: Abdominal aortic aneurysm Montour's disease Alcoholism Aphasia Cancer of colon Cataract Chest pain Congenital heart disease Congestive heart failure Cystic fibrosis Dementia Dysphagia Family history: Allergy Family history: Alzheimer's disease Family history: Arthritis Family history: Asthma Family history: Breast disease Family history: Coronary thrombosis Family history: Diabetes mellitus Family history: Gastrointestinal disease Family history: Glaucoma Family history: Osteoporosis Family history: Thyroid disorder Hearing loss Hereditary disease History of - anemia History of - disorder History of - respiratory disease History of drug abuse Human immunodeficiency virus (HIV) seropositivity Hypercholesterolemia Infertile Kidney disease Malignant neoplasm of lung Parkinson's disease Prostate cancer Psychotic disorder Seizure disorder Stroke Tuberculosis Visual impairment Physical Exam-General Problems Physical Exam Vital Signs Vital Sign - Last 12Hours 08/07/16 08/07/16 08/07/16 20:45 20:55 21:06 Temp 97.6 Pulse 81 Resp 32 B/P (MAP) 114/43 Pulse Ox 95 O2 Delivery Bi-pap O2 Flow Rate 45.00 FiO2 45 Capillary Refill : Less Than 3 Seconds General Appearance: mild distress Neck: non-tender Respiratory: chest non-tender, no accessory muscle use Cardiovascular: regular rate, rhythm Gastrointestinal: distended Extremities: no pedal edema, no calf tenderness, normal capillary refill Neurologic/Psychiatric: depressed affect Skin: normal color, warm/dry Data Review Labs Laboratory Tests Test 08/10/16 03:20 08/10/16 07:15 08/11/16 04:12 08/11/16 07:20 Range/Units White Blood Count 17.1 H 12.1 H 4.3-11.0 10^3/uL Red Blood Count 3.16 L 2.88 L 4.35-5.85 10^6/uL Hemoglobin 9.4 L 8.6 L 13.3-17.7 G/DL Hematocrit 29 L 27 L 40-54 % Mean Corpuscular Volume 92 95 80-99 FL Mean Corpuscular Hemoglobin 30 30 25-34 PG Mean Corpuscular Hemoglobin Concent 33 31 L 32-36 G/DL Red Cell Distribution Width 14.2 14.2 10.0-14.5 % Platelet Count 411 H 349 130-400 10^3/uL Mean Platelet Volume 8.3 7.9 7.4-10.4 FL Sodium Level 139 143 135-145 MMOL/L Potassium Level 3.1 L 3.1 L 3.6-5.0 MMOL/L Chloride Level 103 107 98-107 MMOL/L Carbon Dioxide Level 24 28 21-32 MMOL/L Anion Gap 12 8 5-14 MMOL/L Blood Urea Nitrogen 31 H 23 H 7-18 MG/DL Creatinine 0.83 0.80 0.60-1.30 MG/DL Estimat Glomerular Filtration Rate > 60 > 60 BUN/Creatinine Ratio 37 29 Glucose Level 131 H 135 H 70-105 MG/DL Calcium Level 8.5 8.5 8.5-10.1 MG/DL Total Bilirubin 0.8 0.8 0.1-1.0 MG/DL Aspartate Amino Transf (AST/SGOT) 43 H 26 5-34 U/L Alanine Aminotransferase (ALT/SGPT) 72 H 64 H 0-55 U/L Alkaline Phosphatase 86 76 40-136 U/L B-Type Natriuretic Peptide 124.7 H 174.6 H <100.0 PG/ML Total Protein 6.2 L 6.0 L 6.4-8.2 GM/DL Albumin 3.0 L 2.9 L 3.2-4.5 GM/DL Vancomycin Level Trough 15.8 16.1 10.0-20.0 UG/ML Laboratory Tests 08/11/16 04:12: White Blood Count 12.1H, Red Blood Count 2.88L, Hemoglobin 8.6L, Hematocrit 27L , Mean Corpuscular Volume 95, Mean Corpuscular Hemoglobin 30, Mean Corpuscular Hemoglobin Concent 31L, Red Cell Distribution Width 14.2, Platelet Count 349, Mean Platelet Volume 7.9, Sodium Level 143, Potassium Level 3.1L, Chloride Level 107, Carbon Dioxide Level 28, Anion Gap 8, Blood Urea Nitrogen 23H, Creatinine 0.80, Estimat Glomerular Filtration Rate > 60, BUN/Creatinine Ratio 29, Glucose Level 135H, Calcium Level 8.5, Total Bilirubin 0.8, Aspartate Amino Transf (AST/SGOT) 26, Alanine Aminotransferase (ALT/SGPT) 64H, Alkaline Phosphatase 76, B-Type Natriuretic Peptide 174.6H, Total Protein 6.0L, Albumin 2.9L 08/11/16 07:20: Vancomycin Level Trough 16.1 Microbiology 08/07/16 Blood Culture - Preliminary, Resulted No growth 08/08/16 Gram Stain - Final, Complete 08/08/16 Sputum Culture - Final, Complete Staphylococcus Aureus Radiology Compared to 08/10/2016, there is slightly increased marked dilatation of the colon, with predominantly gas contents and a prominent air-fluid level again seen in the cecum. The cecum is 12.2 CM in caliber compared to 11.8 CM on the prior radiograph. There is still no pneumoperitoneum. No evidence of pneumatosis. Surgical clips in the upper right abdomen and suggestion of mesh repair of inguinal hernia is seen. IMPRESSION: Slight worsening in the predominantly gaseous marked dilatation of the colon, presumably related to ileus. Assessment/Plan Assessment/Plan Assessment/Plan ileus- Xray shows that it is not getting any better. Abdominal distention Dr Mckeon discussed decompressive colonoscopy with daughter including risks and benefits. Daughter agrees to procedure. Linda- Patient with last 3 days increasing abdominal distention. Patient not reporting any abdominal discomfort to me at this time. Daughter is at bedside and reports his stomach has increased in size significantly. Patient has had shortness of breath and has been treated for COPD, CHF, pulmonary edema. He has history of throat cancer. Daughter reports that he has had previous colonoscopy which last colonoscopy i was able to see was 2010. Patient had KUB demonstrating colon dilated to approximately 12 cm. Patient daughter reports he did have a good bowel movement yesterday. Patient not with any n/v fever sweats chills or chest pain. general no acute distress laying in bed head ncat eyes nonicteric nares patent mouth moist heart reg lungs decreased movement abdomen distended no significant tenderness on palpation ext nontender alert flat affect assessment as above. 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
--- NOTE | 2016-08-11 12:45 | Physical Therapy Progress Note ---
Therapy Progress Note Pt resting in bed, family in room. Family requested Pt be allowed to rest. PT will make additional attempt this PM as able. MIL ROBERTSON DPT Aug 11, 2016 12:45
--- NOTE | 2016-08-11 14:53 | Physical Therapy Daily Note ---
PT Daily Note-Current Subjective Pt in bed, sitter in room. Easily awakened, agreeable to ambulate. Mental Status Patient Orientation: Person, Confused Attachments: Oxygen, Dexter Catheter, IV Transfers Functional [place] Measure 0=Not Assessed/NA 4=Minimal Assistance 1=Total Assistance 5=Supervision or Setup 2=Maximal Assistance 6=Modified [place] 3=Moderate Assistance 7=Complete IndependenceIRFPAI Quality Coding Scale 6 Independent with activity with or without an assistive device 5 Patient requires set up or clean up by helper. Patient completes activity by themselves 4 Supervision or touching assist (CGA). [place] provide cues , steadying assist 3 The helper provides less than half the effort to complete the activity 2 The helper provides more than half the effort to complete the activity 1 Dependent. The helper does all the effort to complete an activity 7 Patient refused to complete or attempt activity 9 The patient did not perform the activity before the current illness or injury 88 Not attempted due to Medical conditions or safety concerns Transfers (B, C, W/C) (FIM): 4 Supine to/from Sit: 5 Sit to/from Stand: 4 Weight Bearing Weight Bearing Restriction: Full Weight Bearing Location Restriction: LE Bilateral Gait Training Gait (FIM): 4 Distance (FIM): 3=150 ft Distance: 150 Gait Level of Assist: 4 Gait Persons Needed: 1 Gait Assistive Device: FWW Pt ambulated with min A x 1 with max VCS and occasional tactile cues to navigate FWW. VCS/tactile cues for safety, especially when approaching the bed to sit. Treatments Gait with FWW. Pt returned to bed with O2 in situ, alarm activated, sitter present. Assessment Current Status: Good Progress Pt tolerated well. Assist for safety. PT Front End Technician Goals Front End Technician Goals PT Front End Technician Goals Time Frame: Aug 16, 2016 Transfers (B,C,W/C) (FIM): 6 Gait (FIM): 6 PT Plan Problem List Problem List: Activity Tolerance, Functional Strength, Safety, Balance, Gait, Transfer, Bed Mobility Treatment/Plan Treatment Plan: Continue Plan of Care Treatment Plan: Bed Mobility, Education, Functional Activity Herminia, Functional Strength, Gait, Safety, Therapeutic Exercise, Transfers Treatment Duration: Aug 16, 2016 Visits Per Week: 6 Pt/Family Agrees w/Plan: Yes Discharge Recommendations Therapy D/C Recommendations: 24 hr Supervision Time/GCodes Time In: 1359 Time Out: 1414 Total Billed Treatment Time: 15 Total Billed Treatment 1, GT x 15' G Codes Necessary: MIL Collins DPRome Aug 11, 2016 14:53
[2016-08-11] MEDS ORDERED: LACTATED RINGERS 1,000 ML IV ONE ×2 (15:38→16:15)
[2016-08-11] MEDS ORDERED: PROPOFOL INJECTION 50 ML IV ONE (15:41)
[2016-08-11] MEDS ORDERED: METOCLOPRAMIDE INJ 10 MG/2 ML (REGLAN) ONE (17:00)
--- NOTE | 2016-08-11 17:01 | Progress Note-Post Operative ---
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
[2016-08-11] MEDS ORDERED: METOCLOPRAMIDE INJ 10 MG/2 ML (REGLAN) IVP SCH (18:00)
[2016-08-11] MEDS: POLYETHYLENE GLYCOL 17 GM (MIRALAX) PACK PO SCH (20:19)
[2016-08-11] MEDS: METOCLOPRAMIDE 10 MG (REGLAN) TAB PO SCH (20:19)
[2016-08-12] MEDS: RT-ALBUTEROL/IPRATROPIUM 3 ML (DUONEB) VIAL INH SCH ×6 (02:21→21:57)
[2016-08-12] MEDS: D5 NS 1000 ML IV SOLUTION 1,000 ML IV SCH (02:55)
[2016-08-12 04:17] VITALS: BP 135/74
[2016-08-12 06:15] LABS: MAGNESIUM 2.1 MG/DL (1.8-2.4); PHOSPHORUS 2.7 MG/DL (2.3-4.7)
[2016-08-12] MEDS: FUROSEMIDE 40 MG/4 ML INJ (LASIX) IVP SCH ×2 (07:09→16:44)
[2016-08-12] MEDS: METOCLOPRAMIDE 10 MG (REGLAN) TAB PO SCH ×4 (07:09→20:29)
[2016-08-12] MEDS: KCL 20 MEQ TAB (K-DUR) PO SCH (07:09)
[2016-08-12 08:00] VITALS: BP 142/86
--- NOTE | 2016-08-12 09:09 | Progress Note (SOAP) ---
Subjective Subjective Date Seen by Provider: Aug 12, 2016 Time Seen by Provider: 09:01 81 yo M with MRSA pneumonia, now ileus- he did undergo decompression colonoscopy 08/11/16. No overnight events. Pt awake, alert but not talkative. Spoke very few words. He did say that his belly still hurts. Review of Systems ROS Unable to Obtain: did not answer many questions. General: Fatigue (did not answer) HEENT: Head Aches (did not answer) Pulmonary: Dyspnea (did not answer), Cough Cardiovascular: Chest Pain (did not answer) Gastrointestinal: Abdominal Pain, Nausea (did not answer) Genitourinary: No Dysuria Neurological: Confusion (did not answer), Weakness (did not answer) All Other Systems Reviewed All Other Systems Reviewed: Yes Objective Exam Vital Signs Vital Sign - Last 12Hours 08/07/16 08/07/16 08/07/16 20:45 20:55 21:06 Temp 97.6 Pulse 81 Resp 32 B/P (MAP) 114/43 Pulse Ox 95 O2 Delivery Bi-pap O2 Flow Rate 45.00 FiO2 45 Capillary Refill : Less Than 3 Seconds General Appearance: No Apparent Distress, WD/WN HEENT: PERRL/EOMI Neck: Full Range of Motion, Supple Respiratory: Chest Non Tender, Crackles (right lung base), Decreased Breath Sounds (left lung base) Cardiovascular: Regular Rate, Rhythm, Systolic Murmur (ii/vi) Gastrointestinal: Distended, No Guarding, No Mass, No Rebound, No Tenderness Rectal: Deferred, Other (rectal tube in place with stool at top) Back: Normal Inspection Extremity: Normal Capillary Refill Neurologic/Psychiatric: Alert, Other (ORIENTED TO PERSON, NOT PLACE, NOT TIME) Skin: Warm/Dry Lymphatic: No Adenopathy Results Lab Laboratory Tests 08/12/16 05:45: Phosphorus Level 2.7, Magnesium Level 2.1 Microbiology 08/07/16 Blood Culture - Preliminary, Resulted No growth 08/08/16 Gram Stain - Final, Complete 08/08/16 Sputum Culture - Final, Complete Staphylococcus Aureus Assessment/Plan Assessment/Plan Assessment/Plan 81 yo M MRSA pneumonia- WBC improving- on vancomycin- sputum + MRSA, blood culture negative, afebrile. COPD- on 8L NC, incentive spirometry Pulmonary edema with CHF- monitor lung sounds, cxr- rechecking bnp- continue lasix. Chronic anemia- monitor cbc Dementia with behavioral disturbances- sitter, frequent orientation, aricept hypokalemia- replacing in IVF HTN- monitor BP Ileus- Dr. Mckeon consulted- s/p decompressive colonoscopy- rectal tube in to relieve flatus BPH- alfuzosin ordered- Dispo: monitor stool, abdominal exams- respiratory status, continue vanc- pt is currently npo. pt is improving but still guarded. IVF D51/2NS +40mEq KCl Problems: Clinical Quality Measures DVT/VTE Risk/Contraindication: Risk Factor Score Per Nursin RFS Level Per Nursing on Admit: 4+=Very High PAGE MILLAN MD Aug 12, 2016 09:09
[2016-08-12] MEDS: SENNA W/DOCUSATE (SENOKOT S) TABLET PO SCH ×2 (09:24→20:29)
[2016-08-12] MEDS: VANCOMYCIN 1 GM/NS 250 ML IVPB IV SCH ×4 (09:24→20:29)
[2016-08-12] MEDS: D5 1/2 NS W/KCL 40 MEQ/L 1,000 ML IV SCH ×2 (09:32→20:28)
--- NOTE | 2016-08-12 09:49 | Diagnostic Imaging Report ---
INDICATION: Pain, ileus Study compared with exam 08/11. FINDINGS: Gaseous distention of large bowel is redemonstrated but improved in magnitude from prior. Cecum measures about 10 cm in diameter today previously about 13. The left colon is much less distended. Air-containing small bowel loops are also less prominent. IMPRESSION: Reduction in a pattern of diffuse ileus with no adverse change. Dictated by: Dictated on workstation # [id number]
--- NOTE | 2016-08-12 10:17 | Physical Therapy Daily Note ---
PT Daily Note-Current Subjective Patient was very lethargic but agrees to bed exercises today. Transfers Functional [place] Measure 0=Not Assessed/NA 4=Minimal Assistance 1=Total Assistance 5=Supervision or Setup 2=Maximal Assistance 6=Modified [place] 3=Moderate Assistance 7=Complete IndependenceIRFPAI Quality Coding Scale 6 Independent with activity with or without an assistive device 5 Patient requires set up or clean up by helper. Patient completes activity by themselves 4 Supervision or touching assist (CGA). [place] provide cues , steadying assist 3 The helper provides less than half the effort to complete the activity 2 The helper provides more than half the effort to complete the activity 1 Dependent. The helper does all the effort to complete an activity 7 Patient refused to complete or attempt activity 9 The patient did not perform the activity before the current illness or injury 88 Not attempted due to Medical conditions or safety concerns Exercises Supine Ex: LE Protocol Supine Reps: 20 Assessment Current Status: Good Progress Patient very lethargic during bed exercises. PT Curb Setter Goals Curb Setter Goals PT Curb Setter Goals Time Frame: Aug 16, 2016 Transfers (B,C,W/C) (FIM): 6 Gait (FIM): 6 PT Plan Treatment/Plan Treatment Plan: Continue Plan of Care Treatment Plan: Bed Mobility, Education, Functional Activity Herminia, Functional Strength, Gait, Safety, Therapeutic Exercise, Transfers Treatment Duration: Aug 16, 2016 Visits Per Week: 6 Time/GCodes Time In: 1005 Time Out: 1015 Total Billed Treatment Time: 10' Total Billed Treatment 1, EX x 10' G Codes Necessary: PAOLA Roberson PT Aug 12, 2016 10:17
[2016-08-12 12:00] VITALS: BP 139/76
--- NOTE | 2016-08-12 13:11 | Progress Note ---
Subjective Time Seen by Provider: 12:41 Subjective/Events-last exam Pt seen and examined. Pt does not respond to verbal, this is his normal. Appears comfortable. Sitter with pt thinks she has seen some "stuff at top of rectal tube". Review of Systems General: No Night Sweats Pulmonary: No Cough Cardiovascular: No: Edema Gastrointestinal: Constipation, No: Hematochezia, Vomiting Objective Exam Vital Signs Date Time Temp Pulse Resp B/P (MAP) Pulse Ox O2 Delivery O2 Flow Rate FiO2 08/12/16 10:58 High Flow N/C 8.00 08/12/16 10:26 96 High Flow N/C 8.00 08/12/16 08:00 98.7 90 22 142/86 98 High Flow N/C 8.00 08/12/16 08:00 High Flow N/C 8.00 08/12/16 06:18 95 High Flow N/C 8.00 08/12/16 04:17 98.6 86 22 135/74 99 High Flow N/C 8.00 08/12/16 04:00 High Flow N/C 8.00 08/12/16 02:21 95 13 96 45.00 08/12/16 02:21 96 High Flow N/C 8.00 08/12/16 00:00 High Flow N/C 8.00 08/11/16 23:28 98.9 08/11/16 23:23 95 24 104/61 96 NIV Bilevel 08/11/16 23:11 95 23 96 45.00 08/11/16 21:00 High Flow N/C 8.00 08/11/16 20:00 High Flow N/C 8.00 08/11/16 19:39 99.1 90 20 116/58 98 High Flow N/C 8.00 08/11/16 18:53 96 High Flow N/C 7.00 08/11/16 16:00 97.0 80 20 149/93 95 High Flow N/C 8.00 08/11/16 16:00 95 High Flow N/C 8.00 45 08/11/16 14:39 97 High Flow N/C 7.00 I & O 08/12/16 07:00 Intake Total 1750 ml Output Total 3875 ml Balance -2125 ml Capillary Refill : Less Than 3 Seconds General Appearance: No Apparent Distress, WD/WN Neck: Full Range of Motion, Supple Respiratory: Chest Non Tender, Crackles (right lung base), Decreased Breath Sounds (left lung base) Cardiovascular: Regular Rate, Rhythm, Systolic Murmur (ii/vi) Gastrointestinal: no organomegaly, distended, tenderness (with palpation) Extremity: Normal Capillary Refill Neurologic/Psychiatric: Other (ORIENTED TO PERSON, NOT PLACE, NOT TIME) Skin: Warm/Dry Lymphatic: No Adenopathy (neck, axilla or groin) Results Lab Laboratory Tests 08/12/16 05:45: Phosphorus Level 2.7, Magnesium Level 2.1 Microbiology 08/07/16 Blood Culture - Preliminary, Resulted No growth 08/08/16 Gram Stain - Final, Complete 08/08/16 Sputum Culture - Final, Complete Staphylococcus Aureus Assessment/Plan Assessment/Plan 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 Pt may need Total colectomy if he does not improve, because he will be at high risk for a spontaneous perforation if bowel enlarges to much, and possibly stercoral perforation if he becomes severely constipated because of no motility of Large intestine. MRSA pneumonia- WBC improving- on vancomycin- sputum + MRSA, blood culture negative, afebrile. COPD- on 8L NC, incentive spirometry Pulmonary edema with CHF- monitor lung sounds, cxr- rechecking bnp- continue lasix. Chronic anemia- monitor cbc Dementia with behavioral disturbances- sitter, frequent orientation, aricept hypokalemia- replacing in IVF HTN- monitor BP BPH- alfuzosin ordered- Clinical Quality Measures DVT/VTE Risk/Contraindication: Risk Factor Score Per Nursin RFS Level Per Nursing on Admit: 4+=Very High SAADIA JENNINGS DO Aug 12, 2016 13:11
[2016-08-12 16:30] VITALS: BP 145/61
[2016-08-12 20:24] VITALS: BP 142/77
[2016-08-12] MEDS: POLYETHYLENE GLYCOL 17 GM (MIRALAX) PACK PO SCH (20:29)
[2016-08-12 23:29] VITALS: BP 116/78
[2016-08-13] MEDS: RT-ALBUTEROL/IPRATROPIUM 3 ML (DUONEB) VIAL INH SCH ×6 (02:14→22:35)
[2016-08-13 04:22] VITALS: BP 121/63
[2016-08-13 05:44] LABS: BASOPHILS % (AUTO) 0 % (0-10); EOSINOPHILS % (AUTO) 0 % (0-10); LYMPHOCYTES % (AUTO) 7 % (12-44); MEAN CORPUSCULAR HEMOGLOBIN 30 PG (25-34); MEAN CORPUSCULAR HGB CONC 31 G/DL (32-36); MEAN CORPUSCULAR VOLUME 96 FL (80-99); MEAN PLATELET VOLUME 8.3 FL (7.4-10.4); MONOCYTES # (AUTO) 0.5 X 10^3 (0.0-1.0); MONOCYTES % (AUTO) 4 % (0-12); NEUTROPHILS % (AUTO) 89 % (42-75); PLATELET COUNT 298 10^3/uL (130-400); RED CELL DISTRIBUTION WIDTH 14.2 % (10.0-14.5); WHITE BLOOD COUNT 14.5 10^3/uL (4.3-11.0)
[2016-08-13 05:56] LABS: ALBUMIN 2.8 GM/DL (3.2-4.5); ANION GAP 8 MMOL/L (5-14); BLOOD UREA NITROGEN 21 MG/DL (7-18); BUN/CREATININE RATIO 23; CALCIUM 8.8 MG/DL (8.5-10.1); CARBON DIOXIDE 32 MMOL/L (21-32); CHLORIDE 107 MMOL/L (98-107); CREATININE SERUM 0.92 MG/DL (0.60-1.30); GFR ESTIMATED > 60; GLUCOSE 122 MG/DL (70-105); MAGNESIUM 2.2 MG/DL (1.8-2.4); PHOSPHORUS 2.5 MG/DL (2.3-4.7); POTASSIUM 3.3 MMOL/L (3.6-5.0); SODIUM 147 MMOL/L (135-145)
[2016-08-13] MEDS: FUROSEMIDE 40 MG/4 ML INJ (LASIX) IVP SCH ×2 (05:56→17:14)
[2016-08-13] MEDS: METOCLOPRAMIDE 10 MG (REGLAN) TAB PO SCH ×4 (05:56→20:05)
[2016-08-13] MEDS: KCL 20 MEQ TAB (K-DUR) PO SCH (05:56)
[2016-08-13 07:40] VITALS: BP 123/82
[2016-08-13] MEDS: VANCOMYCIN 1 GM/NS 250 ML IVPB IV SCH ×4 (08:51→20:05)
[2016-08-13] MEDS: SENNA W/DOCUSATE (SENOKOT S) TABLET PO SCH ×2 (08:51→20:05)
[2016-08-13] MEDS: HALOPERIDOL 5 MG/ML (HALDOL) AMP IM PRN (08:55)
--- NOTE | 2016-08-13 09:48 | Diagnostic Imaging Report ---
PROCEDURE: CT abdomen without contrast. TECHNIQUE: Multiple contiguous axial images were obtained through the abdomen without the use of intravenous contrast. INDICATION: Abdominal pain. Followup of possible free air. FINDINGS: Severe bilateral interstitial lung disease with honeycombing is noted. There is moderate distention of the ascending and transverse colon. No free air is demonstrated. The stomach and small bowel are nondistended where visualized. Liver appears normal. Gallbladder is absent. Bile ducts are not dilated. Pancreas is atrophic. Spleen appears normal. There is a 4.9 cm mass arising from the right adrenal gland. The left adrenal gland is normal. The kidneys show no evidence of obstruction or calculi. Aorta is atherosclerotic without aneurysm. IMPRESSION: 1. Mild gaseous distention of the colon with no evidence of free air or free fluid. 2. Stable appearing adrenal mass on the right when compared with 03/03/2016 CT scan of the chest. 3. Chronic interstitial lung disease again noted. Dictated by: Dictated on workstation # [id number]
[2016-08-13] MEDS: D5 1/2 NS W/KCL 40 MEQ/L 1,000 ML IV SCH ×2 (10:32→15:41)
--- NOTE | 2016-08-13 11:12 | Diagnostic Imaging Report ---
2 views of the abdomen. INDICATION: Intestinal dilation. Comparison made to prior study from the previous day. FINDINGS: The degree of small bowel dilation appears intervally diminished though there is now a delineation of both sides of the wall of loops of small bowel that is suspect for the possibility of free air. There is continued gaseous distention demonstrated about the colon which is also slightly improved. There are surgical clips in the right upper quadrant, and there has likely been a lower abdominal wall surgery. Advanced interstitial changes are present within the lungs. Pulmonary infiltrates are not significantly changed from prior exam. IMPRESSION: 1. On today's examination there is now clear delineation of both sides of the wall of loops of small bowel which is suspect for the possibility of free air on this supine examination. Consider CT imaging. 2. Overall degree of small and large bowel dilation does appear to be intervally improved. 3. Advanced chronic interstitial lung disease with persistent bilateral pulmonary infiltrates. Findings of concern for possibility of free air and CT recommendation were called to the fourth floor and discussed with the nurse caring for the patient. She reported that she will contact the on-call physician. Dictated by: Dictated on workstation # [id number]
[2016-08-13 12:00] VITALS: BP 131/77
--- NOTE | 2016-08-13 12:17 | Progress Note ---
Subjective Time Seen by Provider: 10:51 Subjective/Events-last exam Pt seen and examined, events of last night noted. Pt broke his rectal tube, elected to remove completely. Next I got call at around 8am that Abd xray showed possible free air, so CT was ordered. He is sitting up in chair, his sitter says he was a little agitated earlier. Review of Systems General: No Chills, No Night Sweats Gastrointestinal: No: Hematochezia, Vomiting unable to ask pt any ROS because he doesn't respond. Objective Exam Vital Signs Date Time Temp Pulse Resp B/P (MAP) Pulse Ox O2 Delivery O2 Flow Rate FiO2 08/13/16 11:00 High Flow N/C 6.00 08/13/16 09:47 High Flow N/C 7.00 08/13/16 08:00 High Flow N/C 7.00 08/13/16 07:40 97.1 94 22 123/82 96 High Flow N/C 8.00 08/13/16 06:59 97 High Flow N/C 7.00 08/13/16 04:22 98.9 87 20 121/63 96 High Flow N/C 8.00 08/13/16 04:00 High Flow N/C 8.00 08/13/16 02:14 96 High Flow N/C 8.00 08/13/16 00:00 High Flow N/C 8.00 08/12/16 23:29 98.7 88 22 116/78 94 High Flow N/C 8.00 08/12/16 21:58 97 High Flow N/C 8.00 08/12/16 21:00 High Flow N/C 8.00 08/12/16 20:24 99.1 77 24 142/77 96 High Flow N/C 8.00 08/12/16 20:00 High Flow N/C 8.00 08/12/16 18:24 97 High Flow N/C 8.00 08/12/16 16:30 99.3 87 24 145/61 96 High Flow N/C 8.00 08/12/16 15:51 High Flow N/C 8.00 08/12/16 14:28 High Flow N/C I & O 08/13/16 07:00 Intake Total 2065 ml Output Total 2050 ml Balance 15 ml Capillary Refill : Less Than 3 Seconds General Appearance: No Apparent Distress, WD/WN Neck: Full Range of Motion, Supple Respiratory: Chest Non Tender, Crackles (right lung base), Decreased Breath Sounds (left lung base) Cardiovascular: Regular Rate, Rhythm, Systolic Murmur (ii/vi) Gastrointestinal: no organomegaly, distended, tenderness (with palpation) Extremity: Normal Capillary Refill Neurologic/Psychiatric: Other (ORIENTED TO PERSON, NOT PLACE, NOT TIME) Skin: Warm/Dry Lymphatic: No Adenopathy (neck, axilla or groin) Results Lab Laboratory Tests 08/13/16 05:30: White Blood Count 14.5H, Red Blood Count 3.30L, Hemoglobin 9.9L, Hematocrit 32L , Mean Corpuscular Volume 96, Mean Corpuscular Hemoglobin 30, Mean Corpuscular Hemoglobin Concent 31L, Red Cell Distribution Width 14.2, Platelet Count 298, Mean Platelet Volume 8.3, Neutrophils (%) (Auto) 89H, Lymphocytes (%) (Auto) 7L , Monocytes (%) (Auto) 4, Eosinophils (%) (Auto) 0, Basophils (%) (Auto) 0, Neutrophils # (Auto) 13.0H, Lymphocytes # (Auto) 1.0, Monocytes # (Auto) 0.5, Eosinophils # (Auto) 0.0, Basophils # (Auto) 0.0, Sodium Level 147H, Potassium Level 3.3L, Chloride Level 107, Carbon Dioxide Level 32, Anion Gap 8, Blood Urea Nitrogen 21H, Creatinine 0.92, Estimat Glomerular Filtration Rate > 60, BUN /Creatinine Ratio 23, Glucose Level 122H, Calcium Level 8.8, Phosphorus Level 2.5, Magnesium Level 2.2, B-Type Natriuretic Peptide 146.2H, Albumin 2.8L Microbiology 08/07/16 Blood Culture - Preliminary, Resulted No growth 08/08/16 Gram Stain - Final, Complete 08/08/16 Sputum Culture - Final, Complete Staphylococcus Aureus Assessment/Plan Assessment/Plan Assessment/Plan Ogilvies Syndrome - s/p decompressive colonoscopy, Abd flat plate still showed possible free air; however, CT read by radiologist as no free air. Colon looks smaller than yesterday appears to be improving. MRSA pneumonia- WBC improving- on vancomycin- sputum + MRSA, blood culture negative, afebrile. COPD- on 8L NC, incentive spirometry Pulmonary edema with CHF- monitor lung sounds, cxr- rechecking bnp- continue lasix. Chronic anemia- monitor cbc Dementia with behavioral disturbances- sitter, frequent orientation, aricept hypokalemia- replacing in IVF HTN- monitor BP BPH- alfuzosin ordered- Clinical Quality Measures DVT/VTE Risk/Contraindication: Risk Factor Score Per Nursin RFS Level Per Nursing on Admit: 4+=Very High SAADIA JENNINGS DO Aug 13, 2016 12:17
--- NOTE | 2016-08-13 13:55 | Progress Note (SOAP) ---
Subjective Subjective Date Seen by Provider: Aug 13, 2016 Time Seen by Provider: 13:30 81 yo M with MRSA pneumonia, now ileus- he did undergo decompression colonoscopy 08/11/16. Pt broke the valve on the bulb for the rectal tube - so the rectal tube was removed last night. Pt has no complaints today- Pt was sitting up in a chair in his room. Not very talkative. Review of Systems ROS Unable to Obtain: did not answer many questions. General: No Chills, No Night Sweats HEENT: No Head Aches Pulmonary: No Dyspnea, No Cough Cardiovascular: No: Chest Pain, Edema Gastrointestinal: Abdominal Pain, No: Hematochezia, Vomiting Genitourinary: No Dysuria Neurological: Confusion (did not answer), Weakness (did not answer) All Other Systems Reviewed All Other Systems Reviewed: Yes Objective Exam Vital Signs Vital Signs Date Time Temp Pulse Resp B/P (MAP) Pulse Ox O2 Delivery O2 Flow Rate FiO2 08/13/16 12:00 High Flow N/C 7.00 08/13/16 11:00 High Flow N/C 6.00 08/13/16 09:47 High Flow N/C 7.00 08/13/16 08:00 High Flow N/C 7.00 08/13/16 07:40 97.1 94 22 123/82 96 High Flow N/C 8.00 08/13/16 06:59 97 High Flow N/C 7.00 08/13/16 04:22 98.9 87 20 121/63 96 High Flow N/C 8.00 08/13/16 04:00 High Flow N/C 8.00 08/13/16 02:14 96 High Flow N/C 8.00 08/13/16 00:00 High Flow N/C 8.00 08/12/16 23:29 98.7 88 22 116/78 94 High Flow N/C 8.00 08/12/16 21:58 97 High Flow N/C 8.00 08/12/16 21:00 High Flow N/C 8.00 08/12/16 20:24 99.1 77 24 142/77 96 High Flow N/C 8.00 08/12/16 20:00 High Flow N/C 8.00 08/12/16 18:24 97 High Flow N/C 8.00 08/12/16 16:30 99.3 87 24 145/61 96 High Flow N/C 8.00 08/12/16 15:51 High Flow N/C 8.00 08/12/16 14:28 High Flow N/C I & O 08/13/16 07:00 Intake Total 2065 ml Output Total 2050 ml Balance 15 ml General Appearance: No Apparent Distress, WD/WN Neck: Full Range of Motion, Supple Respiratory: Chest Non Tender, Crackles (right lung base), Decreased Breath Sounds (left lung base) Cardiovascular: Regular Rate, Rhythm, Systolic Murmur (ii/vi) Gastrointestinal: Distended, No Guarding, No Mass, No Rebound, Tenderness Rectal: Deferred Back: Normal Inspection Extremity: Normal Capillary Refill Neurologic/Psychiatric: Alert (awake), Other (ORIENTED TO PERSON, NOT PLACE, NOT TIME) Skin: Warm/Dry Lymphatic: No Adenopathy (neck, axilla or groin) Results Lab Laboratory Tests 08/13/16 05:30: White Blood Count 14.5H, Red Blood Count 3.30L, Hemoglobin 9.9L, Hematocrit 32L , Mean Corpuscular Volume 96, Mean Corpuscular Hemoglobin 30, Mean Corpuscular Hemoglobin Concent 31L, Red Cell Distribution Width 14.2, Platelet Count 298, Mean Platelet Volume 8.3, Neutrophils (%) (Auto) 89H, Lymphocytes (%) (Auto) 7L , Monocytes (%) (Auto) 4, Eosinophils (%) (Auto) 0, Basophils (%) (Auto) 0, Neutrophils # (Auto) 13.0H, Lymphocytes # (Auto) 1.0, Monocytes # (Auto) 0.5, Eosinophils # (Auto) 0.0, Basophils # (Auto) 0.0, Sodium Level 147H, Potassium Level 3.3L, Chloride Level 107, Carbon Dioxide Level 32, Anion Gap 8, Blood Urea Nitrogen 21H, Creatinine 0.92, Estimat Glomerular Filtration Rate > 60, BUN /Creatinine Ratio 23, Glucose Level 122H, Calcium Level 8.8, Phosphorus Level 2.5, Magnesium Level 2.2, B-Type Natriuretic Peptide 146.2H, Albumin 2.8L Microbiology 08/07/16 Blood Culture - Preliminary, Resulted No growth 08/08/16 Gram Stain - Final, Complete 08/08/16 Sputum Culture - Final, Complete Staphylococcus Aureus Assessment/Plan Assessment/Plan Assessment/Plan 81 yo M MRSA pneumonia- WBC was improving- increased last night- will repeat in AM. on vancomycin- sputum + MRSA, blood culture negative, afebrile. COPD- on 7L NC, incentive spirometry Pulmonary edema with CHF- monitor lung sounds, cxr- rechecking bnp- continue lasix. Chronic anemia- monitor cbc Dementia with behavioral disturbances- sitter, frequent orientation hypokalemia- replacing in IVF HTN- monitor BP Ileus-Valerie Mckeon consulted- s/p decompressive colonoscopy- rectal tube removed 08/12/16 BPH- alfuzosin ordered- Dispo: monitor stool, abdominal exams- respiratory status, continue vanc- Surgery is following. pt is improving but still guarded. IVF D51/2NS +40mEq KCl Problems: Clinical Quality Measures DVT/VTE Risk/Contraindication: Risk Factor Score Per Nursin RFS Level Per Nursing on Admit: 4+=Very High PAGE MILLAN MD Aug 13, 2016 13:55
[2016-08-13 15:27] VITALS: BP 138/79
[2016-08-13] MEDS: ALFUZOSIN HCL 10 MG TAB (UROXATRAL) PO SCH (17:14)
[2016-08-13 19:15] VITALS: BP 89/64
[2016-08-13] MEDS: POLYETHYLENE GLYCOL 17 GM (MIRALAX) PACK PO SCH (20:05)
[2016-08-13 23:32] VITALS: BP 105/63
--- NOTE | 2016-08-13 23:45 | OPERATIVE REPORT ---
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 POSTOPERATIVE DIAGNOSIS: 1. Distended colon. 2. 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 PROCEDURE: Decompressive colonoscopy. SURGEON: Dr. Mckeon. ANESTHESIA: Per SWITCHBOARD OPERATOR HELPER. ESTIMATED BLOOD LOSS: None. COMPLICATIONS: None. INDICATIONS: The patient is an 80-year-old male who has had abdominal distention for approximately 3 days. He has significant COPD and CHF. Risk and benefits of decompressive colonoscopy were discussed with the patient and family who understand and wished to proceed and consent was signed on the chart. PROCEDURE: The patient was taken to the endoscopy suite and placed in left recumbent position. Timeout was performed. Digital rectal exam was performed. There were no palpable polyps, masses, or ulcerations. The scope was inserted in the rectum and advanced all way cecum with some slight difficulty just due to no prep. The entire colon was dilated so it was not too difficult for visualization. Once in the cecum, the ileocecal valve was visualized with no abnormality. The appendiceal orifice was visualized as well without noting any abnormalities. We began suctioning the entire colon while slowly withdrawing the scope. On insertion of the scope and withdrawal, no significant abnormality was visualized. On withdrawal, as I said, the scope was continued to be slowly withdrawn with a constant suction decompressing the colon. The scope was continued be slowly retracted until completely removed. Upon completion, the patient's abdomen which was significantly distended, is now flat. He tolerated procedure well without any complications. The patient will also have a rectal tube inserted to hopefully continue to assist with decompression. I did have a long discussion with the patient's family that if this was unsuccessful, the patient may need colectomy. We will continue with conservative management at this time though. Job ID: [id number] Dictated Date: 08/11/2016 17:00:04 Site Identification Specialist Date: 08/13/2016 23:28:48 / casie
[2016-08-14] MEDS: RT-ALBUTEROL/IPRATROPIUM 3 ML (DUONEB) VIAL INH SCH ×6 (01:27→22:26)
[2016-08-14 04:36] VITALS: BP 123/58
[2016-08-14] MEDS: D5 1/2 NS W/KCL 40 MEQ/L 1,000 ML IV SCH ×2 (04:58→19:18)
[2016-08-14 05:06] LABS: BASOPHILS % (AUTO) 0 % (0-10); EOSINOPHILS # (AUTO) 0.2 10^3/uL (0.0-0.3); EOSINOPHILS % (AUTO) 1 % (0-10); LYMPHOCYTES % (AUTO) 8 % (12-44); MEAN CORPUSCULAR HEMOGLOBIN 30 PG (25-34); MEAN CORPUSCULAR HGB CONC 31 G/DL (32-36); MEAN CORPUSCULAR VOLUME 97 FL (80-99); MEAN PLATELET VOLUME 8.2 FL (7.4-10.4); MONOCYTES # (AUTO) 0.7 X 10^3 (0.0-1.0); MONOCYTES % (AUTO) 6 % (0-12); NEUTROPHILS % (AUTO) 85 % (42-75); PLATELET COUNT 308 10^3/uL (130-400); RED BLOOD COUNT 2.83 10^6/uL (4.35-5.85); RED CELL DISTRIBUTION WIDTH 14.2 % (10.0-14.5); WHITE BLOOD COUNT 12.9 10^3/uL (4.3-11.0)
[2016-08-14 05:28] LABS: ANION GAP 12 MMOL/L (5-14); BLOOD UREA NITROGEN 22 MG/DL (7-18); BUN/CREATININE RATIO 26; CALCIUM 8.5 MG/DL (8.5-10.1); CARBON DIOXIDE 27 MMOL/L (21-32); CHLORIDE 108 MMOL/L (98-107); CREATININE SERUM 0.86 MG/DL (0.60-1.30); GFR ESTIMATED > 60; GLUCOSE 124 MG/DL (70-105); POTASSIUM 3.2 MMOL/L (3.6-5.0); SODIUM 147 MMOL/L (135-145)
[2016-08-14] MEDS: FUROSEMIDE 40 MG/4 ML INJ (LASIX) IVP SCH ×2 (06:28→16:31)
[2016-08-14] MEDS: METOCLOPRAMIDE 10 MG (REGLAN) TAB PO SCH ×4 (06:28→20:29)
[2016-08-14] MEDS: KCL 20 MEQ TAB (K-DUR) PO SCH (06:29)
[2016-08-14 07:58] VITALS: BP 126/79
--- NOTE | 2016-08-14 08:31 | Progress Note ---
Subjective Time Seen by Provider: 08:25 Subjective/Events-last exam Patient sleeping in room. Easily aroused but will not communicate even when asked questions. Objective Exam Vital Signs Date Time Temp Pulse Resp B/P (MAP) Pulse Ox O2 Delivery O2 Flow Rate FiO2 08/14/16 07:58 97.7 91 20 126/79 96 High Flow N/C 8.00 08/14/16 07:41 94 High Flow N/C 7.00 08/14/16 04:36 97.8 89 20 123/58 94 High Flow N/C 8.00 08/14/16 04:00 High Flow N/C 7.00 08/14/16 01:28 92 High Flow N/C 7.00 08/14/16 00:00 High Flow N/C 7.00 08/13/16 23:32 97.8 91 16 105/63 97 High Flow N/C 8.00 08/13/16 22:35 95 High Flow N/C 7.00 08/13/16 21:00 High Flow N/C 7.00 08/13/16 20:00 High Flow N/C 7.00 08/13/16 19:15 98.9 62 24 89/64 100 High Flow N/C 8.00 08/13/16 18:35 96 High Flow N/C 6.00 08/13/16 15:27 98.4 78 138/79 100 High Flow N/C 8.00 08/13/16 15:23 High Flow N/C 7.00 08/13/16 15:00 94 08/13/16 14:41 High Flow N/C 6.00 08/13/16 12:00 High Flow N/C 7.00 08/13/16 12:00 98.2 87 22 131/77 96 High Flow N/C 8.00 08/13/16 11:00 High Flow N/C 6.00 08/13/16 09:47 High Flow N/C 7.00 I & O 08/14/16 07:00 Intake Total 2065 ml Output Total 1715 ml Balance 350 ml Capillary Refill : Less Than 3 Seconds General Appearance: No Apparent Distress, WD/WN Neck: Full Range of Motion, Supple Respiratory: Chest Non Tender, No Accessory Muscle Use, No Respiratory Distress Cardiovascular: Regular Rate, Rhythm Gastrointestinal: no organomegaly, distended Extremity: Normal Capillary Refill Neurologic/Psychiatric: Alert (awake), Other (ORIENTED TO PERSON, NOT PLACE, NOT TIME) Skin: Warm/Dry Lymphatic: No Adenopathy (neck, axilla or groin) Results Lab Laboratory Tests Test 08/13/16 05:30 08/14/16 04:50 Range/Units White Blood Count 14.5 H 12.9 H 4.3-11.0 10^3/uL Red Blood Count 3.30 L 2.83 L 4.35-5.85 10^6/uL Hemoglobin 9.9 L 8.5 L 13.3-17.7 G/DL Hematocrit 32 L 27 L 40-54 % Mean Corpuscular Volume 96 97 80-99 FL Mean Corpuscular Hemoglobin 30 30 25-34 PG Mean Corpuscular Hemoglobin Concent 31 L 31 L 32-36 G/DL Red Cell Distribution Width 14.2 14.2 10.0-14.5 % Platelet Count 298 308 130-400 10^3/uL Mean Platelet Volume 8.3 8.2 7.4-10.4 FL Neutrophils (%) (Auto) 89 H 85 H 42-75 % Lymphocytes (%) (Auto) 7 L 8 L 12-44 % Monocytes (%) (Auto) 4 6 0-12 % Eosinophils (%) (Auto) 0 1 0-10 % Basophils (%) (Auto) 0 0 0-10 % Neutrophils # (Auto) 13.0 H 11.0 H 1.8-7.8 X 10^3 Lymphocytes # (Auto) 1.0 1.0 1.0-4.0 X 10^3 Monocytes # (Auto) 0.5 0.7 0.0-1.0 X 10^3 Eosinophils # (Auto) 0.0 0.2 0.0-0.3 10^3/uL Basophils # (Auto) 0.0 0.0 0.0-0.1 10^3/uL Sodium Level 147 H 147 H 135-145 MMOL/L Potassium Level 3.3 L 3.2 L 3.6-5.0 MMOL/L Chloride Level 107 108 H 98-107 MMOL/L Carbon Dioxide Level 32 27 21-32 MMOL/L Anion Gap 8 12 5-14 MMOL/L Blood Urea Nitrogen 21 H 22 H 7-18 MG/DL Creatinine 0.92 0.86 0.60-1.30 MG/DL Estimat Glomerular Filtration Rate > 60 > 60 BUN/Creatinine Ratio 23 26 Glucose Level 122 H 124 H 70-105 MG/DL Calcium Level 8.8 8.5 8.5-10.1 MG/DL Phosphorus Level 2.5 2.3-4.7 MG/DL Magnesium Level 2.2 1.8-2.4 MG/DL B-Type Natriuretic Peptide 146.2 H <100.0 PG/ML Albumin 2.8 L 3.2-4.5 GM/DL Laboratory Tests 08/14/16 04:50: White Blood Count 12.9H, Red Blood Count 2.83L, Hemoglobin 8.5L, Hematocrit 27L , Mean Corpuscular Volume 97, Mean Corpuscular Hemoglobin 30, Mean Corpuscular Hemoglobin Concent 31L, Red Cell Distribution Width 14.2, Platelet Count 308, Mean Platelet Volume 8.2, Neutrophils (%) (Auto) 85H, Lymphocytes (%) (Auto) 8L , Monocytes (%) (Auto) 6, Eosinophils (%) (Auto) 1, Basophils (%) (Auto) 0, Neutrophils # (Auto) 11.0H, Lymphocytes # (Auto) 1.0, Monocytes # (Auto) 0.7, Eosinophils # (Auto) 0.2, Basophils # (Auto) 0.0, Sodium Level 147H, Potassium Level 3.2L, Chloride Level 108H, Carbon Dioxide Level 27, Anion Gap 12, Blood Urea Nitrogen 22H, Creatinine 0.86, Estimat Glomerular Filtration Rate > 60, BUN /Creatinine Ratio 26, Glucose Level 124H, Calcium Level 8.5 Microbiology 08/07/16 Blood Culture - Final, Complete No growth 08/08/16 Gram Stain - Final, Complete 08/08/16 Sputum Culture - Final, Complete Staphylococcus Aureus Radiology NAME: TRUDY BETANCOURT MED REC#: [id number] PT STATUS: ADM IN : 1935 PHYSICIAN: SAADIA JENNINGS DO ADMIT DATE: 08/07/16 Signed Date of Exam: 08/13/16 CT ABDOMEN WO PROCEDURE: CT abdomen without contrast. TECHNIQUE: Multiple contiguous axial images were obtained through the abdomen without the use of intravenous contrast. INDICATION: Abdominal pain. Followup of possible free air. FINDINGS: Severe bilateral interstitial lung disease with honeycombing is noted. There is moderate distention of the ascending and transverse colon. No free air is demonstrated. The stomach and small bowel are nondistended where visualized. Liver appears normal. Gallbladder is absent. Bile ducts are not dilated. Pancreas is atrophic. Spleen appears normal. There is a 4.9 cm mass arising from the right adrenal gland. The left adrenal gland is normal. The kidneys show no evidence of obstruction or calculi. Aorta is atherosclerotic without aneurysm. IMPRESSION: 1. Mild gaseous distention of the colon with no evidence of free air or free fluid. 2. Stable appearing adrenal mass on the right when compared with 03/03/2016 CT scan of the chest. 3. Chronic interstitial lung disease again noted. Assessment/Plan Assessment/Plan Assessment/Plan CT of the abdomen and pelvis reports mild gaseous distention of the colon with no evidence of free air or free fluid. Ogilvies Syndrome - s/p decompressive colonoscopy. ABD is still distended. MRSA pneumonia- WBC continues to improve- on vancomycin- COPD- on 8L NC, incentive spirometry Pulmonary edema with CHF- monitor lung sounds, cxr- rechecking bnp- continue lasix. We will continue to monitor patient's progress. Linda- Patient sitting in chair. appears comfortable. alert. When asked about abdomen states it feels better. Denies any n/v fever sweats chills shortness of breath or chest pain. general no acute distress heart reg lungs nonlabored abdomen less distended no guarding or rebounding ext nontender. assessment as above repeat x ray today I feel colon is less distended today compared to couple days ago, will continue conservative management. still may need further endoscopy and possible surgical intervention if doesn't continue to improve. Clinical Quality Measures DVT/VTE Risk/Contraindication: Risk Factor Score Per Nursin RFS Level Per Nursing on Admit: 4+=Very High ALF CARPENTER APRN Aug 14, 2016 08:31 THOMAS ARTHUR DO Aug 14, 2016 09:42
--- NOTE | 2016-08-14 09:07 | Progress Note (SOAP) ---
Subjective Date Seen by Provider: Aug 14, 2016 Time Seen by Provider: 09:03 Subjective/Events-last exam PT REPORTS THAT HE IS FEELING BETTER. WHEN ASKED HOW HIS STOMACH FEELS, HE REPORTS THAT IT DOES FEEL BETTER, STAFF NOTES HE IS NOT SWOLLEN ON SUNDAY. THE PATIENT HAS A SITTER WHO STATES THAT HE HAS BEEN RESTING WELL, NOT RESTLESS OVER THE WEEKEND. PHYSICAL THERAPY REPORTS THAT HE HAS WALKED WELL WITH THE STAFF. Review of Systems General: Fatigue HEENT: No Head Aches Pulmonary: No Dyspnea, No Cough Cardiovascular: No: Chest Pain Gastrointestinal: No: Abdominal Pain, Nausea Neurological: Confusion, Weakness Objective Exam Vital Signs Date Time Temp Pulse Resp B/P (MAP) Pulse Ox O2 Delivery O2 Flow Rate FiO2 08/14/16 07:58 97.7 91 20 126/79 96 High Flow N/C 8.00 08/14/16 07:41 94 High Flow N/C 7.00 08/14/16 04:36 97.8 89 20 123/58 94 High Flow N/C 8.00 08/14/16 04:00 High Flow N/C 7.00 08/14/16 01:28 92 High Flow N/C 7.00 08/14/16 00:00 High Flow N/C 7.00 08/13/16 23:32 97.8 91 16 105/63 97 High Flow N/C 8.00 08/13/16 22:35 95 High Flow N/C 7.00 08/13/16 21:00 High Flow N/C 7.00 08/13/16 20:00 High Flow N/C 7.00 08/13/16 19:15 98.9 62 24 89/64 100 High Flow N/C 8.00 08/13/16 18:35 96 High Flow N/C 6.00 08/13/16 15:27 98.4 78 138/79 100 High Flow N/C 8.00 08/13/16 15:23 High Flow N/C 7.00 08/13/16 15:00 94 08/13/16 14:41 High Flow N/C 6.00 08/13/16 12:00 High Flow N/C 7.00 08/13/16 12:00 98.2 87 22 131/77 96 High Flow N/C 8.00 08/13/16 11:00 High Flow N/C 6.00 08/13/16 09:47 High Flow N/C 7.00 I & O 08/14/16 07:00 Intake Total 2065 ml Output Total 1715 ml Balance 350 ml Capillary Refill : Less Than 3 Seconds General Appearance: No Apparent Distress, WD/WN HEENT: PERRL/EOMI Neck: Supple Respiratory: Chest Non Tender, Decreased Breath Sounds (IN BASES) Cardiovascular: Regular Rate, Rhythm, No Edema Gastrointestinal: normal bowel sounds, non tender, soft, No distended, No guarding, No rebound, No tenderness Extremity: Normal Capillary Refill, No Pedal Edema Neurologic/Psychiatric: Alert, No Motor/Sensory Deficits, Normal Mood/Affect, Other (ORIENTED TO PERSON, NOT PLACE OR TIME) Skin: Warm/Dry Results Lab Laboratory Tests 08/14/16 04:50: White Blood Count 12.9H, Red Blood Count 2.83L, Hemoglobin 8.5L, Hematocrit 27L , Mean Corpuscular Volume 97, Mean Corpuscular Hemoglobin 30, Mean Corpuscular Hemoglobin Concent 31L, Red Cell Distribution Width 14.2, Platelet Count 308, Mean Platelet Volume 8.2, Neutrophils (%) (Auto) 85H, Lymphocytes (%) (Auto) 8L , Monocytes (%) (Auto) 6, Eosinophils (%) (Auto) 1, Basophils (%) (Auto) 0, Neutrophils # (Auto) 11.0H, Lymphocytes # (Auto) 1.0, Monocytes # (Auto) 0.7, Eosinophils # (Auto) 0.2, Basophils # (Auto) 0.0, Sodium Level 147H, Potassium Level 3.2L, Chloride Level 108H, Carbon Dioxide Level 27, Anion Gap 12, Blood Urea Nitrogen 22H, Creatinine 0.86, Estimat Glomerular Filtration Rate > 60, BUN /Creatinine Ratio 26, Glucose Level 124H, Calcium Level 8.5 Microbiology 08/07/16 Blood Culture - Final, Complete No growth 08/08/16 Gram Stain - Final, Complete 08/08/16 Sputum Culture - Final, Complete Staphylococcus Aureus Assessment/Plan Assessment/Plan Assess & Plan/Chief Complaint ACUTE PULMONARY EDEMA MRSA PNEUMONIA COPD ANEMIA CHF HX OF THROAT CANCER DEMENTIA WITH BEHAVIORS HYPOKALEMIA HYPOXEMIA HYPERTENSION CONSTIPATION ILEUS BPH INSOMNIA PNEUMONIA WITH CHRONIC COPD MRSA IN SPUTUM - CHEST XRAY SHOWED PT HAS PNEUMONIA - VANCOMYCIN TO FINISH ON 08/16/16- MONITOR LABS CHF/PULMONARY EDEMA - CONTINUE WITH LASIX - BNP HAS IMPROVED. ANEMIA - - MONITOR CBC TOMORROW - MAY END UP WITH BLOOD TRANSFUSION. HX OF THROAT CANCER- SUPPORTIVE CARE DEMENTIA WITH BEHAVIORS - CONTINUE WITH ARICEPT WHEN PT ABLE TO TAKE MORE ORAL MEDICATIONS - PT CURRENTLY TAKING HIS STOOL SOFTENING MEDICATION AND REGLAN ORALLY - CONTINUE WITH SUPPORTIVE CARE FOR THE PATIENT, HE WILL RETURN TO COMFORT CARE [facility] ON DISCHARGE. HYPOKALEMIA - TREAT WITH IV POTASSIUM SUPPLEMENTATION PRN. HYPOXEMIA - IMPROVED ON CURRENT OXYGEN THERAPY - STARTED INCENTIVE SPIROMETRY HYPERTENSION - CHRONIC - MONITOR BLOOD PRESSURE READINGS. ILEUS - IMPROVED - KUB AND CT OF ABDOMEN SHOWED IMPROVED BOWEL GAS PATTERN BPH - ALFUZOSIN IN HOSPITAL HOLD PO MEDICATIONS (EXCEPT FOR REGLAN AND MIRALAX) DUE TO ILEUS - PT NPO PT NOT SEPTIC - THEREFORE DID NOT START ON SEPSIS PROTOCOL WITH FLUIDS - PT HAS ACUTE PULMONARY EDEMA AND STARTING ON IV FLUIDS AT SEPSIS PROTOCOL RATE WOULD HAVE CAUSED WORSENING PULMONARY EDEMA AND POSSIBLE PATIENT DEMISE. Clinical Quality Measures DVT/VTE Risk/Contraindication: Risk Factor Score Per Nursin RFS Level Per Nursing on Admit: 4+=Very High KEVIN HARKINS MD Aug 14, 2016 09:07
[2016-08-14] MEDS: SENNA W/DOCUSATE (SENOKOT S) TABLET PO SCH ×2 (09:09→20:29)
[2016-08-14] MEDS: VANCOMYCIN 1 GM/NS 250 ML IVPB IV SCH ×4 (09:09→20:30)
--- NOTE | 2016-08-14 09:49 | Physical Therapy Daily Note ---
PT Daily Note-Current Subjective Patient agrees to PT. He states his bottom hurts. Pain Numeric Pain Scale: 3 Location: Posterior Location Body Site: Generalized (bottom) Pain Description: Ache Mental Status Patient Orientation: Confused Attachments: Oxygen, IV Transfers Functional [place] Measure 0=Not Assessed/NA 4=Minimal Assistance 1=Total Assistance 5=Supervision or Setup 2=Maximal Assistance 6=Modified [place] 3=Moderate Assistance 7=Complete IndependenceIRFPAI Quality Coding Scale 6 Independent with activity with or without an assistive device 5 Patient requires set up or clean up by helper. Patient completes activity by themselves 4 Supervision or touching assist (CGA). [place] provide cues , steadying assist 3 The helper provides less than half the effort to complete the activity 2 The helper provides more than half the effort to complete the activity 1 Dependent. The helper does all the effort to complete an activity 7 Patient refused to complete or attempt activity 9 The patient did not perform the activity before the current illness or injury 88 Not attempted due to Medical conditions or safety concerns Transfers (B, C, W/C) (FIM): 5 Scootin Rollin Supine to/from Sit: 5 Sit to/from Stand: 5 Gait Training Gait (FIM): 5 Distance (FIM): 3=150 ft Distance: 500' Gait Level of Assist: 5 Gait Assistive Device: FWW steady gait sequence with FWW Assessment Patient requires time to complete all functional tasks. Ambulation with O2 in place for pulmonary function exercises with 2 recovery periods due to SOA. PT Halfway Goals Halfway Goals PT Acting Teacher Goals Time Frame: Aug 16, 2016 Transfers (B,C,W/C) (FIM): 6 Gait (FIM): 6 PT Plan Treatment/Plan Treatment Plan: Continue Plan of Care Treatment Plan: Bed Mobility, Education, Functional Activity Herminia, Functional Strength, Gait, Safety, Therapeutic Exercise, Transfers Treatment Duration: Aug 16, 2016 Visits Per Week: 6 Time/GCodes Time In: 830 Time Out: 853 Total Billed Treatment Time: 23 Total Billed Treatment 1 visit FA x 2 23 min TANYA WAGNER PT Aug 14, 2016 09:49
[2016-08-14] MEDS: POTASSIUM CL 10MEQ/50ML IVPB 50 ML IV SCH ×2 (10:24→11:17)
--- NOTE | 2016-08-14 10:35 | Diagnostic Imaging Report ---
EXAMINATION: Upright and supine views of the abdomen. INDICATION: Ileus. Comparison 08/13/16 FINDINGS: There is no pneumoperitoneum. There is some marked distention of the colon with fecal material seen in the rectum. Prominent air-fluid levels in the transverse and the left colon are seen. No significantly dilated small bowel loops are noted. Evidence of prior inguinal hernia repair with mesh and cholecystectomy clips are seen. IMPRESSION: Persistent moderate dilatation of the colon with prominent air-fluid levels around the splenic flexure is probably related to improving ileus. Dictated by: Dictated on workstation # [id number]
[2016-08-14 12:00] VITALS: BP 99/73
[2016-08-14 14:00] VITALS: BP 140/57
[2016-08-14] MEDS: ALFUZOSIN HCL 10 MG TAB (UROXATRAL) PO SCH ×2 (17:10→17:12)
[2016-08-14 19:31] VITALS: BP 133/68
[2016-08-14] MEDS: POLYETHYLENE GLYCOL 17 GM (MIRALAX) PACK PO SCH (20:29)
[2016-08-15] MEDS: RT-ALBUTEROL/IPRATROPIUM 3 ML (DUONEB) VIAL INH SCH ×6 (02:00→22:13)
[2016-08-15 04:45] VITALS: BP 171/81
[2016-08-15] MEDS: FUROSEMIDE 40 MG/4 ML INJ (LASIX) IVP SCH ×2 (06:49→17:31)
[2016-08-15] MEDS: METOCLOPRAMIDE 10 MG (REGLAN) TAB PO SCH ×4 (06:50→21:18)
[2016-08-15] MEDS: KCL 20 MEQ TAB (K-DUR) PO SCH (06:50)
[2016-08-15 07:04] LABS: MEAN PLATELET VOLUME 8.5 FL (7.4-10.4); RED BLOOD COUNT 2.96 10^6/uL (4.35-5.85); RED CELL DISTRIBUTION WIDTH 14.4 % (10.0-14.5); WHITE BLOOD COUNT 8.4 10^3/uL (4.3-11.0)
[2016-08-15 07:20] LABS: BILIRUBIN,TOTAL 0.7 MG/DL (0.1-1.0); CALCIUM 8.8 MG/DL (8.5-10.1); CREATININE SERUM 1.17 MG/DL (0.60-1.30); POTASSIUM 3.7 MMOL/L (3.6-5.0); TOTAL PROTEIN 6.2 GM/DL (6.4-8.2)
[2016-08-15 08:03] VITALS: BP 106/68
[2016-08-15] MEDS: VANCOMYCIN 1 GM/NS 250 ML IVPB IV SCH ×4 (08:32→21:18)
--- NOTE | 2016-08-15 09:12 | Progress Note (SOAP) ---
Subjective Date Seen by Provider: Aug 15, 2016 Time Seen by Provider: 09:35 Subjective/Events-last exam THE PATIENT REPORTS THAT HE IS FEELING BETTER. PER STAFF HE HAS HAD A LOT OF FLATULENCE AND LARGE BOWEL MOVEMENT YESTERDAY. HE REPORTS THAT HE IS HUNGRY. Review of Systems General: Fatigue HEENT: No Head Aches Pulmonary: No Dyspnea, No Cough Cardiovascular: No: Chest Pain Gastrointestinal: No: Abdominal Pain, Nausea Genitourinary: No Dysuria Neurological: Confusion, Weakness Objective Exam Vital Signs Date Time Temp Pulse Resp B/P (MAP) Pulse Ox O2 Delivery O2 Flow Rate FiO2 08/15/16 08:03 98.4 82 20 106/68 100 High Flow N/C 8.00 08/15/16 08:00 High Flow N/C 7.00 08/15/16 06:42 97 High Flow N/C 7.00 08/15/16 04:45 97.3 68 20 171/81 100 High Flow N/C 8.00 08/15/16 00:10 Nasal Cannula 7.00 08/14/16 22:26 98 High Flow N/C 7.00 08/14/16 20:30 High Flow N/C 7.00 08/14/16 19:31 98.0 106 16 133/68 98 Nasal Cannula 8.00 08/14/16 18:43 97 High Flow N/C 7.00 08/14/16 16:07 94 High Flow N/C 7.00 45 08/14/16 14:57 94 High Flow N/C 7.00 08/14/16 14:00 97.8 74 18 140/57 100 Nasal Cannula 8.00 08/14/16 12:00 97.5 73 16 99/73 100 High Flow N/C 8.00 08/14/16 12:00 100 High Flow N/C 8.00 45 08/14/16 10:55 95 High Flow N/C 7.00 08/14/16 09:15 95 High Flow N/C 7.00 45 I & O 08/15/16 07:00 Intake Total 1730 ml Output Total 2675 ml Balance -945 ml Capillary Refill : Less Than 3 Seconds General Appearance: No Apparent Distress, WD/WN HEENT: PERRL/EOMI, Pharynx Normal Neck: Full Range of Motion, Supple Respiratory: Chest Non Tender, Lungs Clear, Normal Breath Sounds Cardiovascular: Regular Rate, Rhythm Gastrointestinal: normal bowel sounds, non tender, soft Extremity: No Pedal Edema Neurologic/Psychiatric: Alert, Other (ORIENTED TO PERSON, NOT PLACE, NOT TIME) Skin: Warm/Dry Lymphatic: No Adenopathy Results Lab Laboratory Tests 08/15/16 06:50: White Blood Count 8.4, Red Blood Count 2.96L, Hemoglobin 8.8L, Hematocrit 29L, Mean Corpuscular Volume 97, Mean Corpuscular Hemoglobin 30, Mean Corpuscular Hemoglobin Concent 31L, Red Cell Distribution Width 14.4, Platelet Count 311, Mean Platelet Volume 8.5, Sodium Level 147H, Potassium Level 3.7, Chloride Level 108H, Carbon Dioxide Level 31, Anion Gap 8, Blood Urea Nitrogen 22H, Creatinine 1.17, Estimat Glomerular Filtration Rate 60, BUN/Creatinine Ratio 19 , Glucose Level 113H, Calcium Level 8.8, Total Bilirubin 0.7, Aspartate Amino Transf (AST/SGOT) 32, Alanine Aminotransferase (ALT/SGPT) 55, Alkaline Phosphatase 77, Total Protein 6.2L, Albumin 3.0L Microbiology 08/07/16 Blood Culture - Final, Complete No growth 08/08/16 Gram Stain - Final, Complete 08/08/16 Sputum Culture - Final, Complete Staphylococcus Aureus Assessment/Plan Assessment/Plan Assess & Plan/Chief Complaint ACUTE PULMONARY EDEMA MRSA PNEUMONIA COPD ANEMIA CHF HX OF THROAT CANCER DEMENTIA WITH BEHAVIORS HYPOKALEMIA HYPOXEMIA HYPERTENSION CONSTIPATION ILEUS BPH INSOMNIA PNEUMONIA WITH CHRONIC COPD MRSA IN SPUTUM - CHEST XRAY SHOWED PT HAS PNEUMONIA - VANCOMYCIN TO FINISH ON 08/16/16- MONITOR LABS CHF/PULMONARY EDEMA - CONTINUE WITH LASIX - BNP HAS IMPROVED. ANEMIA - - MONITOR CBC TOMORROW - MAY END UP WITH BLOOD TRANSFUSION. HX OF THROAT CANCER- SUPPORTIVE CARE DEMENTIA WITH BEHAVIORS - CONTINUE WITH ARICEPT WHEN PT ABLE TO TAKE MORE ORAL MEDICATIONS - PT CURRENTLY TAKING HIS STOOL SOFTENING MEDICATION AND REGLAN ORALLY - CONTINUE WITH SUPPORTIVE CARE FOR THE PATIENT, HE WILL RETURN TO COMFORT CARE HOMES ON DISCHARGE. HYPOKALEMIA - TREAT WITH IV POTASSIUM SUPPLEMENTATION PRN. HYPOXEMIA - IMPROVED ON CURRENT OXYGEN THERAPY - STARTED INCENTIVE SPIROMETRY HYPERTENSION - CHRONIC - MONITOR BLOOD PRESSURE READINGS. ILEUS - IMPROVED - KUB OF ABDOMEN SHOWED IMPROVED BOWEL GAS PATTERN - FLUID DIET TODAY BPH - ALFUZOSIN IN HOSPITAL PT NOT SEPTIC - THEREFORE DID NOT START ON SEPSIS PROTOCOL WITH FLUIDS - PT HAS ACUTE PULMONARY EDEMA AND STARTING ON IV FLUIDS AT SEPSIS PROTOCOL RATE WOULD HAVE CAUSED WORSENING PULMONARY EDEMA AND POSSIBLE PATIENT DEMISE. Clinical Quality Measures DVT/VTE Risk/Contraindication: Risk Factor Score Per Nursin RFS Level Per Nursing on Admit: 4+=Very High KEVIN HARKINS MD Aug 15, 2016 09:12
[2016-08-15] MEDS: SENNA W/DOCUSATE (SENOKOT S) TABLET PO SCH ×2 (09:18→21:19)
--- NOTE | 2016-08-15 09:34 | Physical Therapy Daily Note ---
PT Daily Note-Current Subjective States that he is ready to walk. Pain Numeric Pain Scale: 0-No Pain Transfers Functional [place] Measure 0=Not Assessed/NA 4=Minimal Assistance 1=Total Assistance 5=Supervision or Setup 2=Maximal Assistance 6=Modified [place] 3=Moderate Assistance 7=Complete IndependenceIRFPAI Quality Coding Scale 6 Independent with activity with or without an assistive device 5 Patient requires set up or clean up by helper. Patient completes activity by themselves 4 Supervision or touching assist (CGA). [place] provide cues , steadying assist 3 The helper provides less than half the effort to complete the activity 2 The helper provides more than half the effort to complete the activity 1 Dependent. The helper does all the effort to complete an activity 7 Patient refused to complete or attempt activity 9 The patient did not perform the activity before the current illness or injury 88 Not attempted due to Medical conditions or safety concerns Gait Training Gait (FIM): 5 Distance (FIM): 3=150 ft Distance: 150' Gait Level of Assist: 5 Gait Persons Needed: 1 Gait Assistive Device: FWW Assessment Current Status: Good Progress Patient did well with gait and could have walked farther distance however he decided he was done walking. PT Detention Goals Claims Examiner Goals PT Claims Examiner Goals Time Frame: Aug 16, 2016 Transfers (B,C,W/C) (FIM): 6 Gait (FIM): 6 PT Plan Treatment/Plan Treatment Plan: Continue Plan of Care Treatment Plan: Bed Mobility, Education, Functional Activity Herminia, Functional Strength, Gait, Safety, Therapeutic Exercise, Transfers Treatment Duration: Aug 16, 2016 Visits Per Week: 6 Time/GCodes Time In: 0910 Time Out: 0930 Total Billed Treatment Time: 20' Total Billed Treatment 1, EX x 20' G Codes Necessary: PAOLA Roberson PT Aug 15, 2016 09:34
--- NOTE | 2016-08-15 10:08 | Progress Note ---
Subjective Date Seen by Provider: Aug 15, 2016 Time Seen by Provider: 10:04 Subjective/Events-last exam large bm yesterday. sitter at bedside no family. Not having any abdominal pain. No n/v fever sweats chills shortness of breath or chest pain. More conversational today. feeling better. Objective Exam Vital Signs Date Time Temp Pulse Resp B/P (MAP) Pulse Ox O2 Delivery O2 Flow Rate FiO2 08/15/16 08:03 98.4 82 20 106/68 100 High Flow N/C 8.00 08/15/16 08:00 High Flow N/C 7.00 08/15/16 06:42 97 High Flow N/C 7.00 08/15/16 04:45 97.3 68 20 171/81 100 High Flow N/C 8.00 08/15/16 00:10 Nasal Cannula 7.00 08/14/16 22:26 98 High Flow N/C 7.00 08/14/16 20:30 High Flow N/C 7.00 08/14/16 19:31 98.0 106 16 133/68 98 Nasal Cannula 8.00 08/14/16 18:43 97 High Flow N/C 7.00 08/14/16 16:07 94 High Flow N/C 7.00 45 08/14/16 14:57 94 High Flow N/C 7.00 08/14/16 14:00 97.8 74 18 140/57 100 Nasal Cannula 8.00 08/14/16 12:00 97.5 73 16 99/73 100 High Flow N/C 8.00 08/14/16 12:00 100 High Flow N/C 8.00 45 08/14/16 10:55 95 High Flow N/C 7.00 I & O 08/15/16 07:00 Intake Total 1730 ml Output Total 2675 ml Balance -945 ml Capillary Refill : Less Than 3 Seconds General Appearance: No Apparent Distress HEENT: PERRL/EOMI Neck: Full Range of Motion, Supple Respiratory: Chest Non Tender, No Accessory Muscle Use, No Respiratory Distress Cardiovascular: Regular Rate, Rhythm Gastrointestinal: no organomegaly, distended (less distended) Extremity: Normal Capillary Refill Neurologic/Psychiatric: Alert, Other (ORIENTED TO PERSON, NOT PLACE, NOT TIME) Skin: Warm/Dry Lymphatic: No Adenopathy (neck, axilla or groin) Results Lab Laboratory Tests 08/15/16 06:50: White Blood Count 8.4, Red Blood Count 2.96L, Hemoglobin 8.8L, Hematocrit 29L, Mean Corpuscular Volume 97, Mean Corpuscular Hemoglobin 30, Mean Corpuscular Hemoglobin Concent 31L, Red Cell Distribution Width 14.4, Platelet Count 311, Mean Platelet Volume 8.5, Sodium Level 147H, Potassium Level 3.7, Chloride Level 108H, Carbon Dioxide Level 31, Anion Gap 8, Blood Urea Nitrogen 22H, Creatinine 1.17, Estimat Glomerular Filtration Rate 60, BUN/Creatinine Ratio 19 , Glucose Level 113H, Calcium Level 8.8, Total Bilirubin 0.7, Aspartate Amino Transf (AST/SGOT) 32, Alanine Aminotransferase (ALT/SGPT) 55, Alkaline Phosphatase 77, Total Protein 6.2L, Albumin 3.0L Microbiology 08/07/16 Blood Culture - Final, Complete No growth 08/08/16 Gram Stain - Final, Complete 08/08/16 Sputum Culture - Final, Complete Staphylococcus Aureus Assessment/Plan Assessment/Plan Assessment/Plan [place] Syndrome - s/p decompressive colonoscopy. ABD is less distended. MRSA pneumonia- WBC continues to improve- on vancomycin- COPD- incentive spirometry Pulmonary edema with CHF- medical management abdomen less distended and large bm reported. by exam abdomen improving. will start clears. abd x ray in am Clinical Quality Measures DVT/VTE Risk/Contraindication: Risk Factor Score Per Nursin RFS Level Per Nursing on Admit: 4+=Very High THOMAS ARTHUR DO Aug 15, 2016 10:07
[2016-08-15] MEDS: D5 1/2 NS W/KCL 40 MEQ/L 1,000 ML IV SCH (10:59)
[2016-08-15 16:04] VITALS: BP_SYST 132; BP_SYST 162; BP_DIAS 78; BP_DIAS 85
[2016-08-15] MEDS: ALFUZOSIN HCL 10 MG TAB (UROXATRAL) PO SCH (17:31)
[2016-08-15] MEDS: POLYETHYLENE GLYCOL 17 GM (MIRALAX) PACK PO SCH (21:18)
[2016-08-16] VITALS: BP 137/77
[2016-08-16] MEDS: D5 1/2 NS W/KCL 40 MEQ/L 1,000 ML IV SCH ×2 (01:35→17:06)
[2016-08-16] MEDS: RT-ALBUTEROL/IPRATROPIUM 3 ML (DUONEB) VIAL INH SCH ×5 (02:07→19:10)
[2016-08-16] MEDS: METOCLOPRAMIDE 10 MG (REGLAN) TAB PO SCH ×4 (06:07→20:11)
[2016-08-16] MEDS: KCL 20 MEQ TAB (K-DUR) PO SCH (06:07)
[2016-08-16] MEDS: FUROSEMIDE 40 MG/4 ML INJ (LASIX) IVP SCH ×2 (06:07→16:18)
--- NOTE | 2016-08-16 07:14 | Diagnostic Imaging Report ---
INDICATION: Abdominal distention. Comparison with 08/14/2016. FINDINGS: There continues to be moderate gaseous distention of the small bowel and colon. Overall distention does not appear to have changed significantly. The small bowel loops are essentially unchanged. There is perhaps slightly less distention of the transverse colon. Surgical clips from ventral hernia repair noted. IMPRESSION: Findings again consistent with ileus. There does appear to be some decrease in bowel distention of the colon since previous exam though small bowel does remain distended. Dictated by: Dictated on workstation # [id number]
[2016-08-16 07:45] VITALS: BP 152/72
[2016-08-16] MEDS: SENNA W/DOCUSATE (SENOKOT S) TABLET PO SCH ×2 (08:24→20:11)
[2016-08-16] MEDS: VANCOMYCIN 1 GM/NS 250 ML IVPB IV SCH ×2 (08:24)
--- NOTE | 2016-08-16 08:36 | Progress Note ---
Subjective Time Seen by Provider: 08:18 Subjective/Events-last exam Patient resting in bed. More verbal today and responding to question. States he want 3 soft eggs. Objective Exam Vital Signs Date Time Temp Pulse Resp B/P (MAP) Pulse Ox O2 Delivery O2 Flow Rate FiO2 08/16/16 07:45 96.0 83 14 152/72 97 High Flow N/C 5.00 08/16/16 07:30 97 High Flow N/C 5.00 45 08/16/16 07:25 97 08/16/16 07:25 97 Nasal Cannula 7.00 08/16/16 02:07 94 High Flow N/C 4.00 08/16/16 00:00 96.0 86 20 137/77 95 High Flow N/C 7.00 08/15/16 22:13 96 High Flow N/C 7.00 08/15/16 20:15 Room Air 7.00 08/15/16 18:22 92 High Flow N/C 7.00 08/15/16 16:04 96.9 92 20 132/85 97 High Flow N/C 7.00 08/15/16 14:08 High Flow N/C 7.00 08/15/16 10:23 98 High Flow N/C 7.00 I & O 08/16/16 07:00 Intake Total 3177 ml Output Total 1950 ml Balance 1227 ml Capillary Refill : Less Than 3 Seconds General Appearance: No Apparent Distress, WD/WN HEENT: PERRL/EOMI, Pharynx Normal Neck: Full Range of Motion, Supple Respiratory: Chest Non Tender, No Accessory Muscle Use, No Respiratory Distress Cardiovascular: Regular Rate, Rhythm Gastrointestinal: normal bowel sounds, non tender, distended (tympanic ) Extremity: No Pedal Edema Neurologic/Psychiatric: Alert, Other (ORIENTED TO PERSON, NOT PLACE, NOT TIME) Skin: Warm/Dry Lymphatic: No Adenopathy Results Lab Laboratory Tests Test 08/15/16 06:50 Range/Units White Blood Count 8.4 4.3-11.0 10^3/uL Red Blood Count 2.96 L 4.35-5.85 10^6/uL Hemoglobin 8.8 L 13.3-17.7 G/DL Hematocrit 29 L 40-54 % Mean Corpuscular Volume 97 80-99 FL Mean Corpuscular Hemoglobin 30 25-34 PG Mean Corpuscular Hemoglobin Concent 31 L 32-36 G/DL Red Cell Distribution Width 14.4 10.0-14.5 % Platelet Count 311 130-400 10^3/uL Mean Platelet Volume 8.5 7.4-10.4 FL Sodium Level 147 H 135-145 MMOL/L Potassium Level 3.7 3.6-5.0 MMOL/L Chloride Level 108 H 98-107 MMOL/L Carbon Dioxide Level 31 21-32 MMOL/L Anion Gap 8 5-14 MMOL/L Blood Urea Nitrogen 22 H 7-18 MG/DL Creatinine 1.17 0.60-1.30 MG/DL Estimat Glomerular Filtration Rate 60 BUN/Creatinine Ratio 19 Glucose Level 113 H 70-105 MG/DL Calcium Level 8.8 8.5-10.1 MG/DL Total Bilirubin 0.7 0.1-1.0 MG/DL Aspartate Amino Transf (AST/SGOT) 32 5-34 U/L Alanine Aminotransferase (ALT/SGPT) 55 0-55 U/L Alkaline Phosphatase 77 40-136 U/L Total Protein 6.2 L 6.4-8.2 GM/DL Albumin 3.0 L 3.2-4.5 GM/DL Microbiology 08/07/16 Blood Culture - Final, Complete No growth 08/08/16 Gram Stain - Final, Complete 08/08/16 Sputum Culture - Final, Complete Staphylococcus Aureus Radiology Date of Exam:08/16/16 ABDOMEN/KUB 1VIEW INDICATION: Abdominal distention. Comparison with 08/14/2016. FINDINGS: There continues to be moderate gaseous distention of the small bowel and colon. Overall distention does not appear to have changed significantly. The small bowel loops are essentially unchanged. There is perhaps slightly less distention of the transverse colon. Surgical clips from ventral hernia repair noted. IMPRESSION: Findings again consistent with ileus. There does appear to be some decrease in bowel distention of the colon since previous exam though small bowel does remain distended. Assessment/Plan Assessment/Plan Assessment/Plan [place] Syndrome - s/p decompressive colonoscopy. ABD is less distended but not much improvement since the last KUB. According to impression there continues to be moderate gaseous distention of the small bowel and colon. Overall distention does not appear to have changed significantly. MRSA pneumonia- WBC continues to improve- on vancomycin- COPD- incentive spirometry Pulmonary edema with CHF- medical management Will continue to monitor patient. Will discuss patient with Dr. Mckeon. Linda-patient to the same as yesterday. X-ray demonstrating continued ileus. Possible slightly decreased colonic distention. Patient not having any significant abdominal pain at this time. He is tolerating liquid diet pure. No family at bedside. Gen. patient's in no acute distress Heart regular Lungs nonlabored breathing Abdomen distended no guarding or rebounding no palpable masses no significant pain on outpatient Extremities nontender Normal mood and affect Alert Skin without rash Assessment as noted above. Patient to try to increase activity. Continue bowel regimen. Patient is unable tolerate rectal tube will continue conservative management this time. I tried to make a phone call to power of attorney general to discuss further care and plans was unable to reach but left breast for them to call the office. Clinical Quality Measures DVT/VTE Risk/Contraindication: Risk Factor Score Per Nursin RFS Level Per Nursing on Admit: 4+=Very High ALF CARPENTER APRN Aug 16, 2016 08:36 THOMAS MCKEON DO Aug 16, 2016 13:24
--- NOTE | 2016-08-16 09:33 | Progress Note (SOAP) ---
Subjective Date Seen by Provider: Aug 16, 2016 Time Seen by Provider: 08:45 Subjective/Events-last exam PT REPORTS THAT HE IS FEELING BETTER TODAY. PER STAFF, HE HAS BEEN ACTING BETTER HE DENIES ABDOMINAL PAIN, DIZZINESS, WEAKNESS. Review of Systems General: Fatigue HEENT: No Head Aches Pulmonary: No Dyspnea, No Cough Cardiovascular: No: Chest Pain Gastrointestinal: No: Abdominal Pain Neurological: Confusion, Weakness Objective Exam Vital Signs Date Time Temp Pulse Resp B/P (MAP) Pulse Ox O2 Delivery O2 Flow Rate FiO2 08/16/16 07:45 96.0 83 14 152/72 97 High Flow N/C 5.00 08/16/16 07:30 97 High Flow N/C 5.00 45 08/16/16 07:25 97 08/16/16 07:25 97 Nasal Cannula 7.00 08/16/16 02:07 94 High Flow N/C 4.00 08/16/16 00:00 96.0 86 20 137/77 95 High Flow N/C 7.00 08/15/16 22:13 96 High Flow N/C 7.00 08/15/16 20:15 Room Air 7.00 08/15/16 18:22 92 High Flow N/C 7.00 08/15/16 16:04 96.9 92 20 132/85 97 High Flow N/C 7.00 08/15/16 14:08 High Flow N/C 7.00 08/15/16 10:23 98 High Flow N/C 7.00 I & O 08/16/16 07:00 Intake Total 3177 ml Output Total 1950 ml Balance 1227 ml Capillary Refill : Less Than 3 Seconds General Appearance: No Apparent Distress, WD/WN HEENT: PERRL/EOMI, Pharynx Normal Neck: Full Range of Motion, Supple Respiratory: Chest Non Tender, Lungs Clear, Normal Breath Sounds Cardiovascular: Regular Rate, Rhythm Gastrointestinal: normal bowel sounds, distended, No rebound, No tenderness Extremity: Normal Capillary Refill Neurologic/Psychiatric: Alert Skin: Warm/Dry Lymphatic: No Adenopathy Results Lab Microbiology 08/07/16 Blood Culture - Final, Complete No growth 08/08/16 Gram Stain - Final, Complete 08/08/16 Sputum Culture - Final, Complete Staphylococcus Aureus Assessment/Plan Assessment/Plan Assess & Plan/Chief Complaint ACUTE PULMONARY EDEMA MRSA PNEUMONIA COPD ANEMIA CHF HX OF THROAT CANCER DEMENTIA WITH BEHAVIORS HYPOKALEMIA HYPOXEMIA HYPERTENSION CONSTIPATION ILEUS BPH INSOMNIA PNEUMONIA WITH CHRONIC COPD MRSA IN SPUTUM - CHEST XRAY SHOWED PT HAS PNEUMONIA - VANCOMYCIN TO FINISH ON 08/16/16- MONITOR LABS CHF/PULMONARY EDEMA - CONTINUE WITH LASIX - BNP HAS IMPROVED. ANEMIA - - MONITOR CBC TOMORROW - MAY END UP WITH BLOOD TRANSFUSION. HX OF THROAT CANCER- SUPPORTIVE CARE DEMENTIA WITH BEHAVIORS - CONTINUE WITH ARICEPT. HYPOKALEMIA - TREAT WITH IV POTASSIUM SUPPLEMENTATION PRN. HYPOXEMIA - IMPROVED ON CURRENT OXYGEN THERAPY - STARTED INCENTIVE SPIROMETRY HYPERTENSION - CHRONIC - MONITOR BLOOD PRESSURE READINGS. ILEUS - IMPROVED - KUB OF ABDOMEN SHOWED IMPROVED BOWEL GAS PATTERN - FLUID DIET TODAY BPH - ALFUZOSIN IN HOSPITAL PT NOT SEPTIC - THEREFORE DID NOT START ON SEPSIS PROTOCOL WITH FLUIDS - PT HAS ACUTE PULMONARY EDEMA AND STARTING ON IV FLUIDS AT SEPSIS PROTOCOL RATE WOULD HAVE CAUSED WORSENING PULMONARY EDEMA AND POSSIBLE PATIENT DEMISE. Clinical Quality Measures DVT/VTE Risk/Contraindication: Risk Factor Score Per Nursin RFS Level Per Nursing on Admit: 4+=Very High KEVIN HARKINS MD Aug 16, 2016 09:33
--- NOTE | 2016-08-16 12:25 | Physical Therapy Daily Note ---
PT Daily Note-Current Subjective Pt laying Supine in bed upon arrival. Pt is finishing breathing tx. Aide ask if PT could assist getting pt to recliner for lunch and so bed could be made. RT says pt can ambulate to recliner but not any further at this time until O2 SATs stay up. Pt agrees to transfer to recliner. Pain Location: No Pain Reported Mental Status Patient Orientation: Person, Place, Situation Attachments: Oxygen, Dexter Catheter, IV Transfers Functional [place] Measure 0=Not Assessed/NA 4=Minimal Assistance 1=Total Assistance 5=Supervision or Setup 2=Maximal Assistance 6=Modified [place] 3=Moderate Assistance 7=Complete IndependenceIRFPAI Quality Coding Scale 6 Independent with activity with or without an assistive device 5 Patient requires set up or clean up by helper. Patient completes activity by themselves 4 Supervision or touching assist (CGA). [place] provide cues , steadying assist 3 The helper provides less than half the effort to complete the activity 2 The helper provides more than half the effort to complete the activity 1 Dependent. The helper does all the effort to complete an activity 7 Patient refused to complete or attempt activity 9 The patient did not perform the activity before the current illness or injury 88 Not attempted due to Medical conditions or safety concerns Scootin Supine to/from Sit: 4 Sit to/from Stand: 5 Weight Bearing Weight Bearing Restriction: Full Weight Bearing Location Restriction: LE Bilateral Gait Training Distance (FIM): 1=up to 49 ft Distance: 5' Gait Level of Assist: 4 Gait Persons Needed: 1 Gait Assistive Device: FWW Pt fatigues easy and gets SOB. Treatments Pt transfers from supine to EOB at CGA-Min A then EOB to Standing using FWW at SBA. Pt ambulates to recliner and needs VC to turn and sit in recliner. Pt rests in recliner to enjoy lunch with all needs met at end of tx. Assessment Current Status: Fair Progress Pt fatigues easy and gets SOB. PT Television Director Goals Skilled Nursing Goals PT Television Director Goals Time Frame: Aug 16, 2016 Transfers (B,C,W/C) (FIM): 6 Gait (FIM): 6 PT Plan Problem List Problem List: Activity Tolerance, Functional Strength, Safety, Balance, Gait, Transfer, Bed Mobility Treatment/Plan Treatment Plan: Continue Plan of Care Treatment Plan: Bed Mobility, Education, Functional Activity Herminia, Functional Strength, Gait, Safety, Therapeutic Exercise, Transfers Treatment Duration: Aug 16, 2016 Visits Per Week: 6 Safety Risks/Education Patient Education: Transfer Techniques, Correct Positioning, Safety Issues Teaching Recipient: Patient Teaching Methods: Discussion Response to Teaching: Reinforcement Needed Time/GCodes Time In: 1115 Time Out: 1130 Total Billed Treatment Time: 15 Total Billed Treatment visit, SIMON (15m) GRETA PACHECO PTA Aug 16, 2016 12:25
[2016-08-16 15:24] VITALS: BP 123/71
[2016-08-16] MEDS: ALFUZOSIN HCL 10 MG TAB (UROXATRAL) PO SCH (17:06)
[2016-08-16] MEDS ORDERED: DIVALPROX SPRINKLE 125 MG (DEPAKOTE) CAP PO PRN (19:15)
[2016-08-16] MEDS: POLYETHYLENE GLYCOL 17 GM (MIRALAX) PACK PO SCH (20:11)
[2016-08-17 00:08] VITALS: BP 136/82
[2016-08-17] MEDS: D5 1/2 NS W/KCL 40 MEQ/L 1,000 ML IV SCH (06:45)
[2016-08-17] MEDS: FUROSEMIDE 40 MG/4 ML INJ (LASIX) IVP SCH (06:46)
[2016-08-17] MEDS: KCL 20 MEQ TAB (K-DUR) PO SCH (06:46)
[2016-08-17] MEDS: METOCLOPRAMIDE 10 MG (REGLAN) TAB PO SCH ×4 (06:46→20:53)
[2016-08-17] MEDS: RT-ALBUTEROL/IPRATROPIUM 3 ML (DUONEB) VIAL INH SCH ×4 (07:06→19:31)
[2016-08-17 07:15] VITALS: BP 152/85
--- NOTE | 2016-08-17 08:02 | Diagnostic Imaging Report ---
INDICATION: Abdominal distention. KUB 4:42 AM FINDINGS: The gallbladder is surgically absent. There is diffuse gaseous distention of the GI tract. There are postop changes from a ventral hernia repair in the lower abdomen. IMPRESSION: There continues to be gaseous distention of the GI tract suggesting an adynamic ileus. No appreciable change compared to the previous day. Dictated by: Dictated on workstation # [id number]
--- NOTE | 2016-08-17 08:42 | Progress Note ---
Subjective Time Seen by Provider: 08:15 Subjective/Events-last exam Patient is sleeping. Easily aroused. Patient denies any pain at this time. Objective Exam Vital Signs Date Time Temp Pulse Resp B/P (MAP) Pulse Ox O2 Delivery O2 Flow Rate FiO2 08/17/16 07:15 96.1 83 16 152/85 93 High Flow N/C 5.00 08/17/16 00:08 96.4 92 18 136/82 96 High Flow N/C 5.00 08/16/16 21:00 High Flow N/C 5.00 08/16/16 19:15 97 Nasal Cannula 7.00 08/16/16 15:55 97 Nasal Cannula 7.00 08/16/16 15:24 96.9 90 18 123/71 95 High Flow N/C 5.00 08/16/16 11:09 85 Nasal Cannula 5.00 I & O 08/17/16 07:00 Intake Total 4000 ml Output Total 2950 ml Balance 1050 ml Capillary Refill : Less Than 3 Seconds General Appearance: No Apparent Distress, WD/WN HEENT: PERRL/EOMI, Pharynx Normal Neck: Full Range of Motion, Supple Respiratory: Chest Non Tender, Lungs Clear, Normal Breath Sounds Cardiovascular: Regular Rate, Rhythm Gastrointestinal: normal bowel sounds, soft, distended (less distended today), No rebound, No tenderness, other (patient had a BM yesterday) Extremity: Normal Capillary Refill Neurologic/Psychiatric: Alert Skin: Warm/Dry Lymphatic: No Adenopathy Results Lab Microbiology 08/07/16 Blood Culture - Final, Complete No growth 08/08/16 Gram Stain - Final, Complete 08/08/16 Sputum Culture - Final, Complete Staphylococcus Aureus Radiology ALBAN: TRUDY BETANCOURT MED REC#: [id number] PT STATUS: ADM IN : 1935 PHYSICIAN: THOMAS MCKEON DO ADMIT DATE: 08/07/16 Draft Date of Exam:08/17/16 ABDOMEN/KUB 1VIEW INDICATION: Abdominal distention. KUB 4:42 AM FINDINGS: The gallbladder is surgically absent. There is diffuse gaseous distention of the GI tract. There are postop changes from a ventral hernia repair in the lower abdomen. IMPRESSION: There continues to be gaseous distention of the GI tract suggesting an adynamic ileus. No appreciable change compared to the previous day. Assessment/Plan Assessment/Plan Assessment/Plan Ogilvies Syndrome - s/p decompressive colonoscopy. ABD is less distended but no changes reported per KUB. According to impression there continues to be moderate gaseous distention of the small bowel and colon. Overall distention does not appear to have changed significantly.KUB report this morning there continues to be gaseous distention of the GI tract suggesting an adynamic ileus. No appreciable change compared to the previous day. Will continue to monitor patient. will discuss with Dr. Mckeon. Pt reports no pain to abd. Continue bowel regimen. Can follow out-patient or swing bed. Linda- patient sitting in chair. Passing flatus and bm last night. Patient tolerating diet. no n/v fever sweats chills shortness of breath or chest pain. He denies any abdominal pain. ABdominal x ray about the same as yesterday. I did discuss with POA last night and they wish to avoid surgical procedures. general no acute distress heart reg lungs nonlabored abdomen less distention today, no abdominal pain on palpation no organomegaly ext nontender alert skin without rash. Assessment as above patient by physical exam is better today. Continue to increase activity and on would keep on bowel regimen. No surgical intervention needed at this time. Clinical Quality Measures DVT/VTE Risk/Contraindication: Risk Factor Score Per Nursin RFS Level Per Nursing on Admit: 4+=Very High ALF CARPENTER APRN Aug 17, 2016 8:42 am THOMAS MCKEON DO Aug 17, 2016 1:32 pm
[2016-08-17] MEDS: POLYETHYLENE GLYCOL 17 GM (MIRALAX) PACK PO SCH ×2 (09:11→20:52)
[2016-08-17] MEDS: DONEPEZIL 5 MG (ARICEPT) TAB PO SCH (09:12)
[2016-08-17] MEDS: SENNA W/DOCUSATE (SENOKOT S) TABLET PO SCH ×2 (09:12→20:53)
--- NOTE | 2016-08-17 09:18 | Physical Therapy Daily Note ---
PT Daily Note-Current Subjective Patient agrees to PT. Pain Numeric Pain Scale: 0-No Pain Location: No Pain Reported Mental Status Patient Orientation: Confused Attachments: Oxygen, Dexter Catheter, IV Transfers Functional Rapides Measure 0=Not Assessed/NA 4=Minimal Assistance 1=Total Assistance 5=Supervision or Setup 2=Maximal Assistance 6=Modified Rapides 3=Moderate Assistance 7=Complete IndependenceIRFPAI Quality Coding Scale 6 Independent with activity with or without an assistive device 5 Patient requires set up or clean up by helper. Patient completes activity by themselves 4 Supervision or touching assist (CGA). [place] provide cues , steadying assist 3 The helper provides less than half the effort to complete the activity 2 The helper provides more than half the effort to complete the activity 1 Dependent. The helper does all the effort to complete an activity 7 Patient refused to complete or attempt activity 9 The patient did not perform the activity before the current illness or injury 88 Not attempted due to Medical conditions or safety concerns Transfers (B, C, W/C) (FIM): 5 Scootin Sit to/from Stand: 5 Gait Training Gait (FIM): 5 Distance (FIM): 3=150 ft Distance: 250' Gait Level of Assist: 5 Gait Persons Needed: 1 Gait Assistive Device: FWW assist for O2 tank and IV pole Assessment Patient demonstrates safe and functional ambulation with FWW and is up PRN with nursing in [facility]. PT to dismiss patient from services at this time with nursing to continue to follow through. PT Longterm Goals Produce Team Lead Goals PT Longterm Goals Time Frame: Aug 16, 2016 Transfers (B,C,W/C) (FIM): 6 Gait (FIM): 6 PT Plan Treatment/Plan Treatment Plan: Discontinue PT Treatment Plan: Bed Mobility, Education, Functional Activity [place], Functional Strength, Gait, Safety, Therapeutic Exercise, Transfers Treatment Duration: Aug 16, 2016 Visits Per Week: 6 Time/GCodes Time In: 900 Time Out: 910 Total Billed Treatment Time: 10 Total Billed Treatment 1 visit FA 10 min TANYA WAGNER PT Aug 17, 2016 09:18
[2016-08-17 10:31] LABS: BASOPHILS % (AUTO) 0 % (0-10); EOSINOPHILS # (AUTO) 0.2 10^3/uL (0.0-0.3); EOSINOPHILS % (AUTO) 2 % (0-10); LYMPHOCYTES # (AUTO) 0.9 X 10^3 (1.0-4.0); LYMPHOCYTES % (AUTO) 7 % (12-44); MEAN CORPUSCULAR HEMOGLOBIN 30 PG (25-34); MEAN CORPUSCULAR HGB CONC 31 G/DL (32-36); MEAN CORPUSCULAR VOLUME 94 FL (80-99); MEAN PLATELET VOLUME 8.5 FL (7.4-10.4); MONOCYTES # (AUTO) 0.8 X 10^3 (0.0-1.0); MONOCYTES % (AUTO) 6 % (0-12); NEUTROPHILS # (AUTO) 11.8 X 10^3 (1.8-7.8); NEUTROPHILS % (AUTO) 86 % (42-75); PLATELET COUNT 247 10^3/uL (130-400); RED BLOOD COUNT 2.68 10^6/uL (4.35-5.85); RED CELL DISTRIBUTION WIDTH 14.2 % (10.0-14.5); WHITE BLOOD COUNT 13.8 10^3/uL (4.3-11.0)
[2016-08-17 10:53] LABS: ALBUMIN 2.7 GM/DL (3.2-4.5); BILIRUBIN,TOTAL 0.6 MG/DL (0.1-1.0); CALCIUM 8.5 MG/DL (8.5-10.1); CREATININE SERUM 2.1 MG/DL (0.60-1.30); MAGNESIUM 1.7 MG/DL (1.8-2.4); PHOSPHORUS 2.9 MG/DL (2.3-4.7); TOTAL PROTEIN 5.6 GM/DL (6.4-8.2)
[2016-08-17 11:07] LABS: BAND NEUTROPHILS 0 %; BASOPHILS % (MANUAL) 0 %; EOSINOPHILS % (MANUAL) 1 %; LYMPHOCYTES % (MANUAL) 5 %; NEUTROPHILS % (MANUAL) 91 %
[2016-08-17] MEDS ORDERED: MAGNESIUM 1 GM/100 ML IVPB 100 ML IV NR (13:44)
[2016-08-17] MEDS: NS IV 1000 ML 1,000 ML IV SCH (14:23)
[2016-08-17 16:01] VITALS: BP 130/67
[2016-08-17] MEDS: ACETAMINOPHEN 325 MG TABLET/CAPLET (TYLENOL) PO PRN (16:20)
[2016-08-17] MEDS: MAGNESIUM OXIDE (MAG-OX)400 MG TAB PO SCH (17:40)
[2016-08-17] MEDS: ALFUZOSIN HCL 10 MG TAB (UROXATRAL) PO SCH (17:40)
[2016-08-17] MEDS ORDERED: NON-FORMULARY MEDICATION 1 EA EA (Tamsulosin HCl (Flomax) 0.4 MG) PO SCH (18:00)
--- NOTE | 2016-08-17 20:32 | Progress Note (SOAP) ---
Subjective Date Seen by Provider: Aug 17, 2016 Time Seen by Provider: 08:35 Subjective/Events-last exam Fwup pulmonary edema, MRSA pneumonia, ileus, anemia, HTN, dementia. Ambulating with staff. Has passes gas and small BM last night. Objective Exam Vital Signs Date Time Temp Pulse Resp B/P (MAP) Pulse Ox O2 Delivery O2 Flow Rate FiO2 08/17/16 19:31 97 Nasal Cannula 7.00 08/17/16 16:01 96.4 86 20 130/67 95 High Flow N/C 6.50 08/17/16 10:44 98 Nasal Cannula 7.00 08/17/16 09:00 Nasal Cannula 7.00 08/17/16 07:15 96.1 83 16 152/85 93 High Flow N/C 7.00 08/17/16 00:08 96.4 92 18 136/82 96 High Flow N/C 5.00 08/16/16 21:00 High Flow N/C 5.00 I & O 08/17/16 07:00 Intake Total 4000 ml Output Total 2950 ml Balance 1050 ml Capillary Refill : Less Than 3 Seconds General Appearance: No Apparent Distress Neck: Supple Respiratory: Crackles, Decreased Breath Sounds Cardiovascular: Regular Rate, Rhythm, Systolic Murmur Gastrointestinal: normal bowel sounds, non tender, soft Extremity: Non Tender, No Calf Tenderness, No Pedal Edema Neurologic/Psychiatric: Alert Skin: Pallor Results Lab Laboratory Tests 08/17/16 10:23: White Blood Count 13.8H, Red Blood Count 2.68L, Hemoglobin 7.9L, Hematocrit 25L , Mean Corpuscular Volume 94, Mean Corpuscular Hemoglobin 30, Mean Corpuscular Hemoglobin Concent 31L, Red Cell Distribution Width 14.2, Platelet Count 247, Mean Platelet Volume 8.5, Neutrophils (%) (Auto) 86H, Lymphocytes (%) (Auto) 7L , Monocytes (%) (Auto) 6, Eosinophils (%) (Auto) 2, Basophils (%) (Auto) 0, Neutrophils # (Auto) 11.8H, Lymphocytes # (Auto) 0.9L, Monocytes # (Auto) 0.8, Eosinophils # (Auto) 0.2, Basophils # (Auto) 0.0, Neutrophils % (Manual) 91, Lymphocytes % (Manual) 5, Monocytes % (Manual) 3, Eosinophils % (Manual) 1, Basophils % (Manual) 0, Band Neutrophils 0, Blood Morphology Comment NORMAL, Sodium Level 138, Potassium Level 4.0, Chloride Level 101, Carbon Dioxide Level 30, Anion Gap 7, Blood Urea Nitrogen 34H, Creatinine 2.10H, Estimat Glomerular Filtration Rate 30, BUN/Creatinine Ratio 16, Glucose Level 97, Calcium Level 8.5 , Phosphorus Level 2.9, Magnesium Level 1.7L, Total Bilirubin 0.6, Aspartate Amino Transf (AST/SGOT) 31, Alanine Aminotransferase (ALT/SGPT) 44, Alkaline Phosphatase 70, Total Protein 5.6L, Albumin 2.7L 08/17/16 16:25: Hemoglobin 8.2L, Hematocrit 26L Microbiology 08/07/16 Blood Culture - Final, Complete No growth 08/08/16 Gram Stain - Final, Complete 08/08/16 Sputum Culture - Final, Complete Staphylococcus Aureus Assessment/Plan Assessment/Plan Assess & Plan/Chief Complaint 1. Acute Pulmonary Edema--improved, will decrease IV lasix dose due to acute renal failure 2. MRSA pneumonia--Vancomycin finished yesterday 3. Acute Renal Failure--Decrease lasix and hydrate overnight with NS and recheck BUN/Cr in AM 4. Acute Anemia--recheck H/H and transfuse if needed 5. Ileus--improved, has passed gas and BM 6. Hypomagnesemia--replace magnesium 7. Hypertension--stable 8. Dementia--stable on meds Clinical Quality Measures DVT/VTE Risk/Contraindication: Risk Factor Score Per Nursin RFS Level Per Nursing on Admit: 4+=Very High KAMALA GILLILAND DO Aug 17, 2016 20:32
[2016-08-18] VITALS: BP 108/65
[2016-08-18] MEDS: NS IV 1000 ML 1,000 ML IV SCH (01:59)
[2016-08-18 05:32] LABS: BASOPHILS % (AUTO) 0 % (0-10); EOSINOPHILS # (AUTO) 0.1 10^3/uL (0.0-0.3); EOSINOPHILS % (AUTO) 0 % (0-10); LYMPHOCYTES # (AUTO) 0.9 X 10^3 (1.0-4.0); LYMPHOCYTES % (AUTO) 5 % (12-44); MEAN CORPUSCULAR HEMOGLOBIN 30 PG (25-34); MEAN CORPUSCULAR HGB CONC 32 G/DL (32-36); MEAN CORPUSCULAR VOLUME 94 FL (80-99); MEAN PLATELET VOLUME 9.1 FL (7.4-10.4); MONOCYTES # (AUTO) 0.6 X 10^3 (0.0-1.0); MONOCYTES % (AUTO) 3 % (0-12); NEUTROPHILS # (AUTO) 17.1 X 10^3 (1.8-7.8); NEUTROPHILS % (AUTO) 92 % (42-75); PLATELET COUNT 235 10^3/uL (130-400); RED BLOOD COUNT 2.51 10^6/uL (4.35-5.85); RED CELL DISTRIBUTION WIDTH 14.2 % (10.0-14.5); WHITE BLOOD COUNT 18.7 10^3/uL (4.3-11.0)
[2016-08-18 06:08] LABS: CALCIUM 8.5 MG/DL (8.5-10.1); CREATININE SERUM 1.84 MG/DL (0.60-1.30); MAGNESIUM 1.8 MG/DL (1.8-2.4); PHOSPHORUS 2.8 MG/DL (2.3-4.7); POTASSIUM 4.1 MMOL/L (3.6-5.0)
[2016-08-18] MEDS: KCL 20 MEQ TAB (K-DUR) PO SCH (06:08)
[2016-08-18] MEDS: METOCLOPRAMIDE 10 MG (REGLAN) TAB PO SCH ×4 (06:08→21:32)
[2016-08-18] MEDS: FUROSEMIDE 40 MG/4 ML INJ (LASIX) IVP SCH (06:08)
[2016-08-18] MEDS: RT-ALBUTEROL/IPRATROPIUM 3 ML (DUONEB) VIAL INH SCH ×4 (06:29→18:59)
[2016-08-18 08:07] VITALS: BP_SYST 108; BP_SYST 90; BP_DIAS 53; BP_DIAS 65
[2016-08-18] MEDS: SENNA W/DOCUSATE (SENOKOT S) TABLET PO SCH ×2 (08:59→21:31)
[2016-08-18] MEDS: MAGNESIUM OXIDE (MAG-OX)400 MG TAB PO SCH ×2 (08:59→18:10)
[2016-08-18] MEDS: DONEPEZIL 5 MG (ARICEPT) TAB PO SCH (08:59)
[2016-08-18] MEDS: POLYETHYLENE GLYCOL 17 GM (MIRALAX) PACK PO SCH ×2 (08:59→21:31)
--- NOTE | 2016-08-18 09:30 | Progress Note ---
Subjective Time Seen by Provider: 08:30 Subjective/Events-last exam Patient sleeping. No signs of distress or discomfort noted. ABD is soft to palpation. Even respirations noted. Objective Exam Vital Signs Date Time Temp Pulse Resp B/P (MAP) Pulse Ox O2 Delivery O2 Flow Rate FiO2 08/18/16 08:07 96.6 92 22 108/65 97 High Flow N/C 6.50 08/18/16 06:30 95 Nasal Cannula 10.00 08/18/16 00:00 96.6 92 22 108/65 97 High Flow N/C 6.50 08/17/16 20:00 High Flow N/C 7.00 08/17/16 19:31 97 Nasal Cannula 7.00 08/17/16 16:01 96.4 86 20 130/67 95 High Flow N/C 6.50 08/17/16 10:44 98 Nasal Cannula 7.00 I & O 08/18/16 07:00 Intake Total 3646 ml Output Total 2325 ml Balance 1321 ml Capillary Refill : Less Than 3 Seconds General Appearance: No Apparent Distress HEENT: PERRL/EOMI, Pharynx Normal Neck: Supple Respiratory: Crackles Cardiovascular: Regular Rate, Rhythm, Systolic Murmur Gastrointestinal: normal bowel sounds, non tender, soft Extremity: Non Tender, No Calf Tenderness, No Pedal Edema Neurologic/Psychiatric: Alert Skin: Pallor Lymphatic: No Adenopathy Results Lab Laboratory Tests Test 08/17/16 10:23 08/17/16 16:25 08/18/16 05:05 Range/Units White Blood Count 13.8 H 18.7 H 4.3-11.0 10^3/uL Red Blood Count 2.68 L 2.51 L 4.35-5.85 10^6/uL Hemoglobin 7.9 L 8.2 L 7.5 L 13.3-17.7 G/DL Hematocrit 25 L 26 L 24 L 40-54 % Mean Corpuscular Volume 94 94 80-99 FL Mean Corpuscular Hemoglobin 30 30 25-34 PG Mean Corpuscular Hemoglobin Concent 31 L 32 32-36 G/DL Red Cell Distribution Width 14.2 14.2 10.0-14.5 % Platelet Count 247 235 130-400 10^3/uL Mean Platelet Volume 8.5 9.1 7.4-10.4 FL Neutrophils (%) (Auto) 86 H 92 H 42-75 % Lymphocytes (%) (Auto) 7 L 5 L 12-44 % Monocytes (%) (Auto) 6 3 0-12 % Eosinophils (%) (Auto) 2 0 0-10 % Basophils (%) (Auto) 0 0 0-10 % Neutrophils # (Auto) 11.8 H 17.1 H 1.8-7.8 X 10^3 Lymphocytes # (Auto) 0.9 L 0.9 L 1.0-4.0 X 10^3 Monocytes # (Auto) 0.8 0.6 0.0-1.0 X 10^3 Eosinophils # (Auto) 0.2 0.1 0.0-0.3 10^3/uL Basophils # (Auto) 0.0 0.0 0.0-0.1 10^3/uL Neutrophils % (Manual) 91 % Lymphocytes % (Manual) 5 % Monocytes % (Manual) 3 % Eosinophils % (Manual) 1 % Basophils % (Manual) 0 % Band Neutrophils 0 % Blood Morphology Comment NORMAL Sodium Level 138 137 135-145 MMOL/L Potassium Level 4.0 4.1 3.6-5.0 MMOL/L Chloride Level 101 103 98-107 MMOL/L Carbon Dioxide Level 30 26 21-32 MMOL/L Anion Gap 7 8 5-14 MMOL/L Blood Urea Nitrogen 34 H 40 H 7-18 MG/DL Creatinine 2.10 H 1.84 H 0.60-1.30 MG/DL Estimat Glomerular Filtration Rate 30 35 BUN/Creatinine Ratio 16 22 Glucose Level 97 112 H 70-105 MG/DL Calcium Level 8.5 8.5 8.5-10.1 MG/DL Phosphorus Level 2.9 2.8 2.3-4.7 MG/DL Magnesium Level 1.7 L 1.8 1.8-2.4 MG/DL Total Bilirubin 0.6 0.1-1.0 MG/DL Aspartate Amino Transf (AST/SGOT) 31 5-34 U/L Alanine Aminotransferase (ALT/SGPT) 44 0-55 U/L Alkaline Phosphatase 70 40-136 U/L Total Protein 5.6 L 6.4-8.2 GM/DL Albumin 2.7 L 3.2-4.5 GM/DL Laboratory Tests 08/17/16 10:23: White Blood Count 13.8H, Red Blood Count 2.68L, Hemoglobin 7.9L, Hematocrit 25L , Mean Corpuscular Volume 94, Mean Corpuscular Hemoglobin 30, Mean Corpuscular Hemoglobin Concent 31L, Red Cell Distribution Width 14.2, Platelet Count 247, Mean Platelet Volume 8.5, Neutrophils (%) (Auto) 86H, Lymphocytes (%) (Auto) 7L , Monocytes (%) (Auto) 6, Eosinophils (%) (Auto) 2, Basophils (%) (Auto) 0, Neutrophils # (Auto) 11.8H, Lymphocytes # (Auto) 0.9L, Monocytes # (Auto) 0.8, Eosinophils # (Auto) 0.2, Basophils # (Auto) 0.0, Neutrophils % (Manual) 91, Lymphocytes % (Manual) 5, Monocytes % (Manual) 3, Eosinophils % (Manual) 1, Basophils % (Manual) 0, Band Neutrophils 0, Blood Morphology Comment NORMAL, Sodium Level 138, Potassium Level 4.0, Chloride Level 101, Carbon Dioxide Level 30, Anion Gap 7, Blood Urea Nitrogen 34H, Creatinine 2.10H, Estimat Glomerular Filtration Rate 30, BUN/Creatinine Ratio 16, Glucose Level 97, Calcium Level 8.5 , Phosphorus Level 2.9, Magnesium Level 1.7L, Total Bilirubin 0.6, Aspartate Amino Transf (AST/SGOT) 31, Alanine Aminotransferase (ALT/SGPT) 44, Alkaline Phosphatase 70, Total Protein 5.6L, Albumin 2.7L 08/17/16 16:25: Hemoglobin 8.2L, Hematocrit 26L 08/18/16 05:05: White Blood Count 18.7H, Red Blood Count 2.51L, Hemoglobin 7.5L, Hematocrit 24L , Mean Corpuscular Volume 94, Mean Corpuscular Hemoglobin 30, Mean Corpuscular Hemoglobin Concent 32, Red Cell Distribution Width 14.2, Platelet Count 235, Mean Platelet Volume 9.1, Neutrophils (%) (Auto) 92H, Lymphocytes (%) (Auto) 5L , Monocytes (%) (Auto) 3, Eosinophils (%) (Auto) 0, Basophils (%) (Auto) 0, Neutrophils # (Auto) 17.1H, Lymphocytes # (Auto) 0.9L, Monocytes # (Auto) 0.6, Eosinophils # (Auto) 0.1, Basophils # (Auto) 0.0, Sodium Level 137, Potassium Level 4.1, Chloride Level 103, Carbon Dioxide Level 26, Anion Gap 8, Blood Urea Nitrogen 40H, Creatinine 1.84H, Estimat Glomerular Filtration Rate 35, BUN/ Creatinine Ratio 22, Glucose Level 112H, Calcium Level 8.5, Phosphorus Level 2.8 , Magnesium Level 1.8 Microbiology 08/07/16 Blood Culture - Final, Complete No growth 08/08/16 Gram Stain - Final, Complete 08/08/16 Sputum Culture - Final, Complete Staphylococcus Aureus Assessment/Plan Assessment/Plan Assessment/Plan Ogilvies Syndrome - s/p decompressive colonoscopy- Abdomen is soft this morning. It is reported that patient has 5 bowel movements yesterday. WBC is elevated. Might be related to his Lung. Will suggest chest xray with Dr. Mckeon. Acute Anemia--recheck H/H 7.4 and 24 Will continue to monitor patient.Continue bowel regimen. Linda- patient with multiple bowel movements and passing flatus. One reported as solid and rest being liquid stools. Patient abdomen soft with distention still improved compared to when I initially saw him. He is ambulating. No family at bedside. Patient denies any abdominal pain. His WBC is elevated and HGb down. laying in bed in no acute distress heart reg lungs nonlabored abdomen soft nontender, no guarding or rebounding has some distention ext nontender alert flat affect assessment as above loose stools will and anemia being checked for occult blood and will check c diff. patient started on protonix. abdominal x ray no significant change. no surgical intervention continue to increase activity Clinical Quality Measures DVT/VTE Risk/Contraindication: Risk Factor Score Per Nursin RFS Level Per Nursing on Admit: 4+=Very High ALF CARPENTER APRN Aug 18, 2016 09:30 THOMAS MCKEON DO Aug 18, 2016 15:30
[2016-08-18] MEDS ORDERED: PANTOPRAZOLE 40 MG (PROTONIX) TAB PO NR (10:25)
--- NOTE | 2016-08-18 11:30 | Diagnostic Imaging Report ---
Upright and supine views of the abdomen. INDICATION: Followup ileus. COMPARISON: 08/17/16. FINDINGS: There is no pneumoperitoneum. There are prominent air-fluid levels in the colon around the splenic flexure. The transverse colon is moderately dilated at 8.3 CM. The cecum is perhaps less dilated compared to the prior study. There is excessive amount of small bowel gas seen in the mild dilatation of the stomach noted. The rectum demonstrates moderate amount of fecal material. Surgical clips in the upper right abdomen and postsurgical changes in the groin region bilaterally is again noted. IMPRESSION: Findings suggestive of chronic constipation or ileus. The transverse colon is slightly more dilated compared to the prior exam. Dictated by: Dictated on workstation # [id number]
[2016-08-18] MEDS: ACETAMINOPHEN 325 MG TABLET/CAPLET (TYLENOL) PO PRN ×2 (13:08→21:32)
--- NOTE | 2016-08-18 13:11 | Progress Note (SOAP) ---
Subjective Date Seen by Provider: Aug 18, 2016 Time Seen by Provider: 13:23 Subjective/Events-last exam Fwup pulmonary edema, MRSA pneumonia, ileus, anemia, HTN, dementia. Sitting up in chair, chilling. Denies pain. Nursing reports coughing after eating. Review of Systems General: Chills Pulmonary: Dyspnea, Cough Neurological: Weakness Objective Exam Vital Signs Date Time Temp Pulse Resp B/P (MAP) Pulse Ox O2 Delivery O2 Flow Rate FiO2 08/18/16 10:36 87 Nasal Cannula 7.00 08/18/16 08:59 Nasal Cannula 7.00 08/18/16 08:07 96.6 92 22 108/65 97 High Flow N/C 6.50 08/18/16 06:30 95 Nasal Cannula 10.00 08/18/16 00:00 96.6 92 22 108/65 97 High Flow N/C 6.50 08/17/16 20:00 High Flow N/C 7.00 08/17/16 19:31 97 Nasal Cannula 7.00 08/17/16 16:01 96.4 86 20 130/67 95 High Flow N/C 6.50 I & O 08/18/16 07:00 Intake Total 3646 ml Output Total 2325 ml Balance 1321 ml Capillary Refill : Less Than 3 Seconds General Appearance: Mild Distress (chilling) Respiratory: Crackles (bases), Decreased Breath Sounds Cardiovascular: Regular Rate, Rhythm Gastrointestinal: normal bowel sounds, non tender, soft Extremity: Non Tender, No Calf Tenderness, No Pedal Edema Neurologic/Psychiatric: Alert Skin: Pallor Results Lab Laboratory Tests 08/17/16 16:25: Hemoglobin 8.2L, Hematocrit 26L 08/18/16 05:05: Hemoglobin 7.5L, Hematocrit 24L, White Blood Count 18.7H, Red Blood Count 2.51L , Mean Corpuscular Volume 94, Mean Corpuscular Hemoglobin 30, Mean Corpuscular Hemoglobin Concent 32, Red Cell Distribution Width 14.2, Platelet Count 235, Mean Platelet Volume 9.1, Neutrophils (%) (Auto) 92H, Lymphocytes (%) (Auto) 5L , Monocytes (%) (Auto) 3, Eosinophils (%) (Auto) 0, Basophils (%) (Auto) 0, Neutrophils # (Auto) 17.1H, Lymphocytes # (Auto) 0.9L, Monocytes # (Auto) 0.6, Eosinophils # (Auto) 0.1, Basophils # (Auto) 0.0, Sodium Level 137, Potassium Level 4.1, Chloride Level 103, Carbon Dioxide Level 26, Anion Gap 8, Blood Urea Nitrogen 40H, Creatinine 1.84H, Estimat Glomerular Filtration Rate 35, BUN/ Creatinine Ratio 22, Glucose Level 112H, Calcium Level 8.5, Phosphorus Level 2.8 , Magnesium Level 1.8 Microbiology 08/07/16 Blood Culture - Final, Complete No growth 08/08/16 Gram Stain - Final, Complete 08/08/16 Sputum Culture - Final, Complete Staphylococcus Aureus Assessment/Plan Assessment/Plan Assess & Plan/Chief Complaint 1. Acute Pulmonary Edema--stop IVF, repeat CXR 2. MRSA pneumonia--Vancomycin finished 08/16/16, repeat CXR 3. Acute Renal Failure--Renal function improved; BUN/Cr decreased--monitor 4. Acute Anemia-transfuse 1 unit PRBC; -recheck CBC in AM; check FOB 5. Ileus--improved, has passed gas and BM 6. Hypomagnesemia--replace magnesium 7. Hypertension--stable 8. Dementia--stable on meds 9. Leukocytosis- check UA, Blood cultures Clinical Quality Measures DVT/VTE Risk/Contraindication: Risk Factor Score Per Nursin RFS Level Per Nursing on Admit: 4+=Very High KAMALA GILLILAND DO Aug 18, 2016 13:11
[2016-08-18] MEDS ORDERED: diphenhydrAMINE 25 MG TAB (BENADRYL) PO NR (13:30)
[2016-08-18 13:42] LABS: BILIRUBIN,URINE NEGATIVE (NEGATIVE); KETONES,URINE NEGATIVE (NEGATIVE); LEUKOCYTE ESTERASE ,URINE 1+ (NEGATIVE); NITRITE,URINE NEGATIVE (NEGATIVE); PH,URINE 7 (5-9); PROTEIN,URINE NEGATIVE (NEGATIVE); UROBILINOGEN,URINE NORMAL (NORMAL)
[2016-08-18 14:09] LABS: SQUAMOUS EPITHELIAL CELL,UR RARE /HPF; WBC,URINE RARE /HPF
--- NOTE | 2016-08-18 14:16 | Diagnostic Imaging Report ---
INDICATION: Pneumonia Comparison is made with prior study from 08/11/2016. There is diffuse interstitial fibrosis in the lungs. This is a course pattern. There are no consolidating alveolar infiltrates. There are no effusions or pneumothoraces. Right upper extremity PICC line tip projects over the SVC. IMPRESSION: Coarse interstitial fibrosis unchanged from 08/11/2016. Dictated by: Dictated on workstation # [id number]
[2016-08-18] MEDS ORDERED: FUROSEMIDE 40 MG/4 ML INJ (LASIX) IVP NR (14:30)
[2016-08-18 16:00] VITALS: BP 134/66
[2016-08-18] MEDS ORDERED: NS IV 500 ML 500 ML IV NR (16:45)
[2016-08-18 16:52] VITALS: BP 134/66
[2016-08-18 17:15] VITALS: BP 138/62
[2016-08-18] MEDS: ALFUZOSIN HCL 10 MG TAB (UROXATRAL) PO SCH (18:10)
[2016-08-18 19:05] VITALS: BP 137/85
[2016-08-18] MEDS: PANTOPRAZOLE 40 MG (PROTONIX) TAB PO SCH (21:31)
[2016-08-19] VITALS: BP 102/65
[2016-08-19] MEDS: METOCLOPRAMIDE 10 MG (REGLAN) TAB PO SCH ×4 (06:16→20:55)
[2016-08-19] MEDS: FUROSEMIDE 40 MG/4 ML INJ (LASIX) IVP SCH (06:16)
[2016-08-19] MEDS: PANTOPRAZOLE 40 MG (PROTONIX) TAB PO SCH ×2 (06:16→20:55)
[2016-08-19] MEDS: KCL 20 MEQ TAB (K-DUR) PO SCH (06:17)
[2016-08-19 06:20] LABS: BASOPHILS % (AUTO) 0 % (0-10); EOSINOPHILS # (AUTO) 0.2 10^3/uL (0.0-0.3); EOSINOPHILS % (AUTO) 1 % (0-10); LYMPHOCYTES # (AUTO) 1.2 X 10^3 (1.0-4.0); LYMPHOCYTES % (AUTO) 7 % (12-44); MEAN CORPUSCULAR HEMOGLOBIN 30 PG (25-34); MEAN CORPUSCULAR HGB CONC 32 G/DL (32-36); MEAN CORPUSCULAR VOLUME 93 FL (80-99); MONOCYTES # (AUTO) 0.9 X 10^3 (0.0-1.0); MONOCYTES % (AUTO) 6 % (0-12); NEUTROPHILS # (AUTO) 13.5 X 10^3 (1.8-7.8); NEUTROPHILS % (AUTO) 86 % (42-75); PLATELET COUNT 217 10^3/uL (130-400); RED BLOOD COUNT 2.69 10^6/uL (4.35-5.85); WHITE BLOOD COUNT 15.7 10^3/uL (4.3-11.0)
--- NOTE | 2016-08-19 06:41 | Progress Note ---
Subjective Date Seen by Provider: Aug 19, 2016 Time Seen by Provider: 06:00 Subjective/Events-last exam Patient laying in bed. Had bm and passing flatus. Abdomen less distended by physical exam. No new complaints. No abdominal pain. Objective Exam Vital Signs Date Time Temp Pulse Resp B/P (MAP) Pulse Ox O2 Delivery O2 Flow Rate FiO2 08/19/16 00:00 96.9 96 20 102/65 94 High Flow N/C 10.00 08/18/16 19:50 94 High Flow N/C 10.00 45 08/18/16 19:05 97.9 120 22 137/85 Nasal Cannula 10.00 08/18/16 19:00 92 Nasal Cannula 10.00 08/18/16 17:15 97.9 109 20 138/62 92 Nasal Cannula 10.00 08/18/16 16:52 98.2 102 20 134/66 93 Nasal Cannula 10.00 08/18/16 16:00 98.2 93 20 134/66 93 High Flow N/C 10.00 08/18/16 14:48 92 Nasal Cannula 10.00 08/18/16 13:08 96.3 08/18/16 10:36 87 Nasal Cannula 7.00 08/18/16 08:59 Nasal Cannula 7.00 08/18/16 08:07 96.3 96 20 90/53 92 High Flow N/C 7.00 I & O 08/19/16 07:00 Intake Total 2500 ml Output Total 2300 ml Balance 200 ml Capillary Refill : Less Than 3 Seconds General Appearance: No Apparent Distress HEENT: PERRL/EOMI, Normal ENT Inspection Neck: Supple Respiratory: No Accessory Muscle Use, No Respiratory Distress, Crackles Cardiovascular: Regular Rate, Rhythm Gastrointestinal: normal bowel sounds, non tender, soft (less distended) Extremity: Non Tender, No Calf Tenderness, No Pedal Edema Neurologic/Psychiatric: Alert Skin: Pallor Lymphatic: No Adenopathy Results Lab Laboratory Tests 08/18/16 13:25: Urine Color YELLOW, Urine Clarity CLEAR, Urine pH 7, Urine Specific [place] 1.005L, Urine Protein NEGATIVE, Urine Glucose (UA) NEGATIVE, Urine Ketones NEGATIVE, Urine Nitrite NEGATIVE, Urine Bilirubin NEGATIVE, Urine Urobilinogen NORMAL, Urine Leukocyte Esterase 1+H, Urine RBC (Auto) 2+H, Urine RBC 2-5H, Urine WBC RARE, Urine Squamous Epithelial Cells RARE, Urine Crystals NONE, Urine Bacteria NEGATIVE, Urine Casts NONE, Urine Mucus NEGATIVE, Urine Culture Indicated NO 08/18/16 14:58: Lactic Acid Level 1.63 08/19/16 06:10: White Blood Count 15.7H, Red Blood Count 2.69L, Hemoglobin 8.0L, Hematocrit 25L , Mean Corpuscular Volume 93, Mean Corpuscular Hemoglobin 30, Mean Corpuscular Hemoglobin Concent 32, Red Cell Distribution Width 15.0H, Platelet Count 217, Mean Platelet Volume 9.0, Neutrophils (%) (Auto) 86H, Lymphocytes (%) (Auto) 7L , Monocytes (%) (Auto) 6, Eosinophils (%) (Auto) 1, Basophils (%) (Auto) 0, Neutrophils # (Auto) 13.5H, Lymphocytes # (Auto) 1.2, Monocytes # (Auto) 0.9, Eosinophils # (Auto) 0.2, Basophils # (Auto) 0.0 Microbiology 08/07/16 Blood Culture - Final, Complete No growth 08/08/16 Gram Stain - Final, Complete 08/08/16 Sputum Culture - Final, Complete Staphylococcus Aureus Assessment/Plan Assessment/Plan Assessment/Plan Ogilvies Syndrome - s/p decompressive colonoscopy Acute Anemia--recheck H/H 7.4 and 24 received 1 unit Prbc yesterday Hgb 8 this am leukocytosis wbc down slightly today being checked for occult blood and will check c diff. patient on protonix. . no surgical intervention continue to increase activity repeat abd x ray in am repeat labs occult stool and c diff ordered yesterday await results Clinical Quality Measures DVT/VTE Risk/Contraindication: Risk Factor Score Per Nursin RFS Level Per Nursing on Admit: 4+=Very High THOMAS ARTHUR DO Aug 19, 2016 06:41
[2016-08-19 06:50] LABS: CALCIUM 8.7 MG/DL (8.5-10.1); CREATININE SERUM 2.07 MG/DL (0.60-1.30); POTASSIUM 3.9 MMOL/L (3.6-5.0)
[2016-08-19] MEDS ORDERED: PANTOPRAZOLE 40 MG (PROTONIX) TAB PO SCH (07:00)
[2016-08-19] MEDS: RT-ALBUTEROL/IPRATROPIUM 3 ML (DUONEB) VIAL INH SCH ×4 (07:17→18:33)
[2016-08-19] MEDS ORDERED: RT-ALBUTEROL/IPRATROPIUM 3 ML (DUONEB) VIAL INH PRN (07:45)
[2016-08-19 08:00] VITALS: BP 135/72
--- NOTE | 2016-08-19 09:03 | Progress Note (SOAP) ---
Subjective Date Seen by Provider: Aug 19, 2016 Time Seen by Provider: 11:32 Subjective/Events-last exam Fwup pulmonary edema, MRSA pneumonia, ileus, anemia, HTN, dementia. Sitter at bedside, states OOB today with walker, weakness noted with standing. Pt states "feels better than yesterday" but unable to elaborate. States it is easier to breathe when questioned. Having loose stools per nursing. Review of Systems General: Other (Weakness) HEENT: No Head Aches, No Visual Changes, No Eye Pain, No Ear Pain, No Dysphasia , No Sinus Congestion, No Post Nasal Drip, No Sore Throat, No Other Pulmonary: Dyspnea (improving since yesterday) Gastrointestinal: Other (loose stools) Genitourinary: Other (Dexter catheter in place) Musculoskeletal: No: arm pain, back pain, foot pain, hand pain, leg pain, neck pain, other, shoulder pain Neurological: Weakness Objective Exam Vital Signs Date Time Temp Pulse Resp B/P (MAP) Pulse Ox O2 Delivery O2 Flow Rate FiO2 08/19/16 08:00 95.7 76 16 135/72 98 High Flow N/C 9.00 08/19/16 07:18 95 08/19/16 07:18 95 Nasal Cannula 10.00 08/19/16 00:00 96.9 96 20 102/65 94 High Flow N/C 10.00 08/18/16 19:50 94 High Flow N/C 10.00 45 08/18/16 19:05 97.9 120 22 137/85 Nasal Cannula 10.00 08/18/16 19:00 92 Nasal Cannula 10.00 08/18/16 17:15 97.9 109 20 138/62 92 Nasal Cannula 10.00 08/18/16 16:52 98.2 102 20 134/66 93 Nasal Cannula 10.00 08/18/16 16:00 98.2 93 20 134/66 93 High Flow N/C 10.00 08/18/16 14:48 92 Nasal Cannula 10.00 08/18/16 13:08 96.3 08/18/16 10:36 87 Nasal Cannula 7.00 I & O 08/19/16 07:00 Intake Total 2920 ml Output Total 3025 ml Balance -105 ml Capillary Refill : Less Than 3 Seconds General Appearance: No Apparent Distress HEENT: PERRL/EOMI Neck: Full Range of Motion, Non Tender Respiratory: Crackles, Decreased Breath Sounds (bases) Cardiovascular: Regular Rate, Rhythm, Systolic Murmur, Gallop/S4 Peripheral Pulses: 2+ Dorsalis Pedis (R), 2+ Left Dors-Pedis (L), 2+ Radial Pulses (R), 2+ Radial Pulses (L) Gastrointestinal: normal bowel sounds, non tender, soft, abnormal bowel sounds , other (ileus) Neurologic/Psychiatric: Alert Skin: Normal Color, Warm/Dry Results Lab Laboratory Tests 08/18/16 13:25: Urine Color YELLOW, Urine Clarity CLEAR, Urine pH 7, Urine Specific Bee 1.005L, Urine Protein NEGATIVE, Urine Glucose (UA) NEGATIVE, Urine Ketones NEGATIVE, Urine Nitrite NEGATIVE, Urine Bilirubin NEGATIVE, Urine Urobilinogen NORMAL, Urine Leukocyte Esterase 1+H, Urine RBC (Auto) 2+H, Urine RBC 2-5H, Urine WBC RARE, Urine Squamous Epithelial Cells RARE, Urine Crystals NONE, Urine Bacteria NEGATIVE, Urine Casts NONE, Urine Mucus NEGATIVE, Urine Culture Indicated NO 08/18/16 14:58: Lactic Acid Level 1.63 08/19/16 06:10: White Blood Count 15.7H, Red Blood Count 2.69L, Hemoglobin 8.0L, Hematocrit 25L , Mean Corpuscular Volume 93, Mean Corpuscular Hemoglobin 30, Mean Corpuscular Hemoglobin Concent 32, Red Cell Distribution Width 15.0H, Platelet Count 217, Mean Platelet Volume 9.0, Neutrophils (%) (Auto) 86H, Lymphocytes (%) (Auto) 7L , Monocytes (%) (Auto) 6, Eosinophils (%) (Auto) 1, Basophils (%) (Auto) 0, Neutrophils # (Auto) 13.5H, Lymphocytes # (Auto) 1.2, Monocytes # (Auto) 0.9, Eosinophils # (Auto) 0.2, Basophils # (Auto) 0.0, Sodium Level 137, Potassium Level 3.9, Chloride Level 99, Carbon Dioxide Level 27, Anion Gap 11, Blood Urea Nitrogen 45H, Creatinine 2.07H, Estimat Glomerular Filtration Rate 31, BUN/ Creatinine Ratio 22, Glucose Level 95, Calcium Level 8.7 Microbiology 08/07/16 Blood Culture - Final, Complete No growth 08/18/16 C. difficile GDH Antigen & Toxins - Final, Complete 08/08/16 Gram Stain - Final, Complete 08/08/16 Sputum Culture - Final, Complete Staphylococcus Aureus Assessment/Plan Assessment/Plan Assess & Plan/Chief Complaint 1. Acute Pulmonary Edema--Continue Lasix 40mg qd 2. MRSA pneumonia--finished Vanc, monitor WBC--leukocytosis improved today and afebrile 3. Acute Renal Failure--Renal function panel; BUN/Cr increased-- continue to monitor 4. Acute Anemia- FOB pending; continue to monitor H/H--S/P transfusion 5. Ileus--improved, having loose BMs 6. Hypomagnesemia--replace magnesium 7. Hypertension--stable 8. Dementia--stable on meds 9. Leukocytosis- UA negative, Blood cultures pending Clinical Quality Measures DVT/VTE Risk/Contraindication: Risk Factor Score Per Nursin RFS Level Per Nursing on Admit: 4+=Very High KAMALA GILLILAND DO Aug 19, 2016 09:03
[2016-08-19] MEDS: SENNA W/DOCUSATE (SENOKOT S) TABLET PO SCH ×2 (09:27→20:55)
[2016-08-19] MEDS: POLYETHYLENE GLYCOL 17 GM (MIRALAX) PACK PO SCH ×2 (09:27→20:55)
[2016-08-19] MEDS: MAGNESIUM OXIDE (MAG-OX)400 MG TAB PO SCH ×2 (09:27→17:24)
[2016-08-19] MEDS: DONEPEZIL 5 MG (ARICEPT) TAB PO SCH (09:27)
[2016-08-19] MEDS: ACETAMINOPHEN 325 MG TABLET/CAPLET (TYLENOL) PO PRN (10:35)
[2016-08-19 15:37] VITALS: BP 109/68
[2016-08-19] MEDS: ALFUZOSIN HCL 10 MG TAB (UROXATRAL) PO SCH (17:24)
[2016-08-19 23:10] VITALS: BP 160/85
[2016-08-20 05:54] LABS: MEAN PLATELET VOLUME 9.3 FL (7.4-10.4); RED BLOOD COUNT 3.23 10^6/uL (4.35-5.85); RED CELL DISTRIBUTION WIDTH 14.7 % (10.0-14.5); WHITE BLOOD COUNT 14.9 10^3/uL (4.3-11.0)
[2016-08-20 06:22] LABS: ALBUMIN 2.8 GM/DL (3.2-4.5); BILIRUBIN,TOTAL 0.6 MG/DL (0.1-1.0); CALCIUM 9.4 MG/DL (8.5-10.1); CREATININE SERUM 2.01 MG/DL (0.60-1.30); PHOSPHORUS 2.8 MG/DL (2.3-4.7); POTASSIUM 4.1 MMOL/L (3.6-5.0); TOTAL PROTEIN 6.4 GM/DL (6.4-8.2)
[2016-08-20] MEDS: KCL 20 MEQ TAB (K-DUR) PO SCH (06:35)
[2016-08-20] MEDS: METOCLOPRAMIDE 10 MG (REGLAN) TAB PO SCH ×4 (06:35→22:01)
[2016-08-20] MEDS: PANTOPRAZOLE 40 MG (PROTONIX) TAB PO SCH ×2 (06:35→22:00)
[2016-08-20] MEDS: FUROSEMIDE 40 MG/4 ML INJ (LASIX) IVP SCH (06:35)
[2016-08-20 08:00] VITALS: BP 120/59
[2016-08-20] MEDS: RT-ALBUTEROL/IPRATROPIUM 3 ML (DUONEB) VIAL INH SCH ×4 (08:07→18:45)
[2016-08-20] MEDS: MAGNESIUM OXIDE (MAG-OX)400 MG TAB PO SCH ×2 (08:38→18:08)
[2016-08-20] MEDS: POLYETHYLENE GLYCOL 17 GM (MIRALAX) PACK PO SCH ×2 (08:38→22:00)
[2016-08-20] MEDS: SENNA W/DOCUSATE (SENOKOT S) TABLET PO SCH ×2 (08:38→22:01)
[2016-08-20] MEDS: DONEPEZIL 5 MG (ARICEPT) TAB PO SCH (08:38)
--- NOTE | 2016-08-20 09:15 | Diagnostic Imaging Report ---
INDICATION: Abdominal distention. COMPARISON: 08/18/2016 FINDINGS: Two supine radiographic views of the abdomen were obtained and continue to show diffuse mild gaseous distention of the small bowel. There is improved gaseous distention of the transverse colon. There is also persistent gaseous distention of the stomach. There is no large collection of free intraperitoneal air. No unexpected radiopaque foreign bodies are seen. Postsurgical changes of previous ventral hernia repair noted. Bony structures show no new acute abnormalities. IMPRESSION: 1. Gaseous distention of the colon is improved. Otherwise, overall diffuse gaseous distention of the stomach, small bowel, and remainder of the colon has not significantly changed. Dictated by: Dictated on workstation # [id number]
--- NOTE | 2016-08-20 11:48 | Progress Note (SOAP) ---
Subjective Date Seen by Provider: Aug 20, 2016 Time Seen by Provider: 11:45 Subjective/Events-last exam Fwup pulmonary edema, MRSA pneumonia, ileus, anemia, HTN, dementia. Resting in bed but feeling better with no complaints. Objective Exam Vital Signs Date Time Temp Pulse Resp B/P (MAP) Pulse Ox O2 Delivery O2 Flow Rate FiO2 08/20/16 10:52 92 High Flow N/C 8.00 08/20/16 08:07 92 High Flow N/C 8.00 08/20/16 08:00 96.8 87 20 120/59 96 High Flow N/C 8.00 08/19/16 23:10 98.7 98 22 160/85 92 High Flow N/C 8.00 08/19/16 19:40 90 High Flow N/C 8.00 45 08/19/16 18:33 90 High Flow N/C 8.00 08/19/16 15:37 96.7 89 16 109/68 95 High Flow N/C 8.00 08/19/16 14:45 95 Nasal Cannula 8.00 I & O 08/20/16 07:00 Intake Total 1070 ml Output Total 3150 ml Balance -2080 ml Capillary Refill : Less Than 3 Seconds General Appearance: No Apparent Distress Neck: Supple Respiratory: Crackles (but less then yesterday), Decreased Breath Sounds Cardiovascular: Regular Rate, Rhythm, Systolic Murmur Gastrointestinal: normal bowel sounds, non tender, soft Extremity: Non Tender, No Calf Tenderness, No Pedal Edema Neurologic/Psychiatric: Alert Results Lab Laboratory Tests 08/20/16 05:30: White Blood Count 14.9H, Red Blood Count 3.23L, Hemoglobin 9.4L, Hematocrit 30L , Mean Corpuscular Volume 92, Mean Corpuscular Hemoglobin 29, Mean Corpuscular Hemoglobin Concent 32, Red Cell Distribution Width 14.7H, Platelet Count 258, Mean Platelet Volume 9.3, Sodium Level 138, Potassium Level 4.1, Chloride Level 99, Carbon Dioxide Level 29, Anion Gap 10, Blood Urea Nitrogen 44H, Creatinine 2.01H, Estimat Glomerular Filtration Rate 32, BUN/Creatinine Ratio 22, Glucose Level 99, Calcium Level 9.4, Phosphorus Level 2.8, Magnesium Level 2.0, Total Bilirubin 0.6, Aspartate Amino Transf (AST/SGOT) 70H, Alanine Aminotransferase ( ALT/SGPT) 93H, Alkaline Phosphatase 93, Total Protein 6.4, Albumin 2.8L Microbiology 08/18/16 Blood Culture - Preliminary, Resulted No growth 08/18/16 C. difficile GDH Antigen & Toxins - Final, Complete 08/08/16 Gram Stain - Final, Complete 08/08/16 Sputum Culture - Final, Complete Staphylococcus Aureus Assessment/Plan Assessment/Plan Assess & Plan/Chief Complaint 1. Acute Pulmonary Edema--Continue Lasix 40mg qd 2. MRSA pneumonia--finished Vanc, monitor WBC--leukocytosis improved again today and afebrile 3. Acute Renal Failure--Renal function panel; BUN/Cr stable-- continue to monitor 4. Acute Anemia- H/H improved today with no transfusion yesterday, continue to monitor H/H 5. Ileus--improved, having loose BMs--C Diff negative 6. Hypomagnesemia--replace magnesium 7. Hypertension--stable 8. Dementia--stable on meds 9. Leukocytosis- UA negative, Blood cultures negative, afebrile and WBC count trending down so will recheck CBC in AM Clinical Quality Measures DVT/VTE Risk/Contraindication: Risk Factor Score Per Nursin RFS Level Per Nursing on Admit: 4+=Very High KAMALA GILLILAND DO Aug 20, 2016 11:48
--- NOTE | 2016-08-20 12:31 | Progress Note ---
Subjective Date Seen by Provider: Aug 20, 2016 Time Seen by Provider: 11:10 Subjective/Events-last exam patient lying in bed. He is having flatus and having bowel movements. The abdominal x-ray showing was colonic distention today. His C. difficile was negative. He is tolerating diet. He has no complaints. He stating he feels a little bit better. No family at bedside. Objective Exam Vital Signs Date Time Temp Pulse Resp B/P (MAP) Pulse Ox O2 Delivery O2 Flow Rate FiO2 08/20/16 10:52 92 High Flow N/C 8.00 08/20/16 08:07 92 High Flow N/C 8.00 08/20/16 08:00 96.8 87 20 120/59 96 High Flow N/C 8.00 08/19/16 23:10 98.7 98 22 160/85 92 High Flow N/C 8.00 08/19/16 19:40 90 High Flow N/C 8.00 45 08/19/16 18:33 90 High Flow N/C 8.00 08/19/16 15:37 96.7 89 16 109/68 95 High Flow N/C 8.00 08/19/16 14:45 95 Nasal Cannula 8.00 I & O 08/20/16 07:00 Intake Total 1070 ml Output Total 3150 ml Balance -2080 ml Capillary Refill : Less Than 3 Seconds General Appearance: No Apparent Distress HEENT: PERRL/EOMI Neck: Supple Respiratory: Crackles, Decreased Breath Sounds Cardiovascular: Regular Rate, Rhythm, Systolic Murmur Peripheral Pulses: 2+ Dorsalis Pedis (R), 2+ Left Dors-Pedis (L), 2+ Radial Pulses (R), 2+ Radial Pulses (L) Gastrointestinal: non tender, soft, distended (improving) Extremity: Non Tender, No Calf Tenderness, No Pedal Edema Neurologic/Psychiatric: Alert Skin: Normal Color, Warm/Dry Lymphatic: No Adenopathy Results Lab Laboratory Tests 08/20/16 05:30: White Blood Count 14.9H, Red Blood Count 3.23L, Hemoglobin 9.4L, Hematocrit 30L , Mean Corpuscular Volume 92, Mean Corpuscular Hemoglobin 29, Mean Corpuscular Hemoglobin Concent 32, Red Cell Distribution Width 14.7H, Platelet Count 258, Mean Platelet Volume 9.3, Sodium Level 138, Potassium Level 4.1, Chloride Level 99, Carbon Dioxide Level 29, Anion Gap 10, Blood Urea Nitrogen 44H, Creatinine 2.01H, Estimat Glomerular Filtration Rate 32, BUN/Creatinine Ratio 22, Glucose Level 99, Calcium Level 9.4, Phosphorus Level 2.8, Magnesium Level 2.0, Total Bilirubin 0.6, Aspartate Amino Transf (AST/SGOT) 70H, Alanine Aminotransferase ( ALT/SGPT) 93H, Alkaline Phosphatase 93, Total Protein 6.4, Albumin 2.8L Microbiology 08/18/16 Blood Culture - Preliminary, Resulted No growth 08/18/16 C. difficile GDH Antigen & Toxins - Final, Complete 08/08/16 Gram Stain - Final, Complete 08/08/16 Sputum Culture - Final, Complete Staphylococcus Aureus Assessment/Plan Assessment/Plan Assessment/Plan Valerie's syndrome-Abdominal distention, history of MRSA pneumonia, pulmonary edema, anemia Patient having bowel movements and passing flatus. Patient clinically improving. Patient with anemia his hemoglobin stable from yesterday. Continue to follow Leukocytosis his white blood cell count is improving cultures and urine negative. C. difficile was negative. Continue with current management. Clinical Quality Measures DVT/VTE Risk/Contraindication: Risk Factor Score Per Nursin RFS Level Per Nursing on Admit: 4+=Very High THOMAS ARTHUR DO Aug 20, 2016 12:30 pm
[2016-08-20 16:10] VITALS: BP 134/83
[2016-08-20] MEDS: ALFUZOSIN HCL 10 MG TAB (UROXATRAL) PO SCH (18:08)
[2016-08-20 23:24] VITALS: BP 149/82
[2016-08-21 05:03] LABS: BASOPHILS % (AUTO) 0 % (0-10); EOSINOPHILS # (AUTO) 0.3 10^3/uL (0.0-0.3); EOSINOPHILS % (AUTO) 3 % (0-10); LYMPHOCYTES # (AUTO) 1.2 X 10^3 (1.0-4.0); LYMPHOCYTES % (AUTO) 11 % (12-44); MEAN CORPUSCULAR HEMOGLOBIN 29 PG (25-34); MEAN CORPUSCULAR HGB CONC 31 G/DL (32-36); MEAN CORPUSCULAR VOLUME 94 FL (80-99); MEAN PLATELET VOLUME 9.4 FL (7.4-10.4); MONOCYTES # (AUTO) 0.7 X 10^3 (0.0-1.0); MONOCYTES % (AUTO) 6 % (0-12); NEUTROPHILS # (AUTO) 8.1 X 10^3 (1.8-7.8); NEUTROPHILS % (AUTO) 80 % (42-75); PLATELET COUNT 273 10^3/uL (130-400); RED BLOOD COUNT 2.93 10^6/uL (4.35-5.85); RED CELL DISTRIBUTION WIDTH 14.8 % (10.0-14.5); WHITE BLOOD COUNT 10.2 10^3/uL (4.3-11.0)
[2016-08-21 05:33] LABS: ALBUMIN 2.7 GM/DL (3.2-4.5); BILIRUBIN,TOTAL 0.5 MG/DL (0.1-1.0); CALCIUM 9.2 MG/DL (8.5-10.1); CREATININE SERUM 2.02 MG/DL (0.60-1.30); POTASSIUM 4.4 MMOL/L (3.6-5.0)
[2016-08-21] MEDS: FUROSEMIDE 40 MG/4 ML INJ (LASIX) IVP SCH (07:09)
[2016-08-21] MEDS: PANTOPRAZOLE 40 MG (PROTONIX) TAB PO SCH (07:09)
[2016-08-21] MEDS: METOCLOPRAMIDE 10 MG (REGLAN) TAB PO SCH ×2 (07:09→10:56)
[2016-08-21] MEDS: KCL 20 MEQ TAB (K-DUR) PO SCH (07:10)
[2016-08-21] MEDS: RT-ALBUTEROL/IPRATROPIUM 3 ML (DUONEB) VIAL INH SCH ×2 (07:42→11:02)
[2016-08-21 08:00] VITALS: BP 146/78
--- NOTE | 2016-08-21 08:31 | Progress Note ---
Subjective Time Seen by Provider: 08:27 Subjective/Events-last exam Patient sleeping. No signs of distress noted. BM last night. Objective Exam Vital Signs Date Time Temp Pulse Resp B/P (MAP) Pulse Ox O2 Delivery O2 Flow Rate FiO2 08/21/16 08:00 96.0 72 20 146/78 97 High Flow N/C 8.00 08/21/16 07:42 98 8.00 08/20/16 23:24 96.1 88 20 149/82 96 High Flow N/C 8.00 08/20/16 20:00 90 High Flow N/C 7.00 45 08/20/16 18:47 92 High Flow N/C 8.00 08/20/16 16:10 96.5 93 20 134/83 95 High Flow N/C 8.00 08/20/16 14:37 94 High Flow N/C 8.00 08/20/16 10:52 92 High Flow N/C 8.00 08/20/16 08:52 Nasal Cannula 8.00 I & O 08/21/16 07:00 Intake Total 1741 ml Output Total 1425 ml Balance 316 ml Capillary Refill : Less Than 3 Seconds General Appearance: No Apparent Distress HEENT: PERRL/EOMI Neck: Supple Respiratory: Chest Non Tender, No Accessory Muscle Use, No Respiratory Distress Cardiovascular: Regular Rate, Rhythm Peripheral Pulses: 2+ Dorsalis Pedis (R), 2+ Left Dors-Pedis (L), 2+ Radial Pulses (R), 2+ Radial Pulses (L) Gastrointestinal: non tender, soft, distended (improving) Extremity: Non Tender, No Calf Tenderness, No Pedal Edema Neurologic/Psychiatric: Alert Skin: Normal Color, Warm/Dry Lymphatic: No Adenopathy Results Lab Laboratory Tests Test 08/20/16 05:30 08/21/16 04:10 Range/Units White Blood Count 14.9 H 10.2 4.3-11.0 10^3/uL Red Blood Count 3.23 L 2.93 L 4.35-5.85 10^6/uL Hemoglobin 9.4 L 8.6 L 13.3-17.7 G/DL Hematocrit 30 L 28 L 40-54 % Mean Corpuscular Volume 92 94 80-99 FL Mean Corpuscular Hemoglobin 29 29 25-34 PG Mean Corpuscular Hemoglobin Concent 32 31 L 32-36 G/DL Red Cell Distribution Width 14.7 H 14.8 H 10.0-14.5 % Platelet Count 258 273 130-400 10^3/uL Mean Platelet Volume 9.3 9.4 7.4-10.4 FL Sodium Level 138 139 135-145 MMOL/L Potassium Level 4.1 4.4 3.6-5.0 MMOL/L Chloride Level 99 98 98-107 MMOL/L Carbon Dioxide Level 29 30 21-32 MMOL/L Anion Gap 10 11 5-14 MMOL/L Blood Urea Nitrogen 44 H 53 H 7-18 MG/DL Creatinine 2.01 H 2.02 H 0.60-1.30 MG/DL Estimat Glomerular Filtration Rate 32 32 BUN/Creatinine Ratio 22 26 Glucose Level 99 101 70-105 MG/DL Calcium Level 9.4 9.2 8.5-10.1 MG/DL Phosphorus Level 2.8 2.3-4.7 MG/DL Magnesium Level 2.0 1.8-2.4 MG/DL Total Bilirubin 0.6 0.5 0.1-1.0 MG/DL Aspartate Amino Transf (AST/SGOT) 70 H 85 H 5-34 U/L Alanine Aminotransferase (ALT/SGPT) 93 H 128 H 0-55 U/L Alkaline Phosphatase 93 89 40-136 U/L Total Protein 6.4 6.0 L 6.4-8.2 GM/DL Albumin 2.8 L 2.7 L 3.2-4.5 GM/DL Neutrophils (%) (Auto) 80 H 42-75 % Lymphocytes (%) (Auto) 11 L 12-44 % Monocytes (%) (Auto) 6 0-12 % Eosinophils (%) (Auto) 3 0-10 % Basophils (%) (Auto) 0 0-10 % Neutrophils # (Auto) 8.1 H 1.8-7.8 X 10^3 Lymphocytes # (Auto) 1.2 1.0-4.0 X 10^3 Monocytes # (Auto) 0.7 0.0-1.0 X 10^3 Eosinophils # (Auto) 0.3 0.0-0.3 10^3/uL Basophils # (Auto) 0.0 0.0-0.1 10^3/uL Laboratory Tests 08/21/16 04:10: White Blood Count 10.2, Red Blood Count 2.93L, Hemoglobin 8.6L, Hematocrit 28L, Mean Corpuscular Volume 94, Mean Corpuscular Hemoglobin 29, Mean Corpuscular Hemoglobin Concent 31L, Red Cell Distribution Width 14.8H, Platelet Count 273, Mean Platelet Volume 9.4, Neutrophils (%) (Auto) 80H, Lymphocytes (%) (Auto) 11L , Monocytes (%) (Auto) 6, Eosinophils (%) (Auto) 3, Basophils (%) (Auto) 0, Neutrophils # (Auto) 8.1H, Lymphocytes # (Auto) 1.2, Monocytes # (Auto) 0.7, Eosinophils # (Auto) 0.3, Basophils # (Auto) 0.0, Sodium Level 139, Potassium Level 4.4, Chloride Level 98, Carbon Dioxide Level 30, Anion Gap 11, Blood Urea Nitrogen 53H, Creatinine 2.02H, Estimat Glomerular Filtration Rate 32, BUN/ Creatinine Ratio 26, Glucose Level 101, Calcium Level 9.2, Total Bilirubin 0.5, Aspartate Amino Transf (AST/SGOT) 85H, Alanine Aminotransferase (ALT/SGPT) 128H , Alkaline Phosphatase 89, Total Protein 6.0L, Albumin 2.7L Microbiology 08/18/16 Blood Culture - Preliminary, Resulted No growth 08/18/16 C. difficile GDH Antigen & Toxins - Final, Complete 08/08/16 Gram Stain - Final, Complete 08/08/16 Sputum Culture - Final, Complete Staphylococcus Aureus Assessment/Plan Assessment/Plan Assessment/Plan [place]'s syndrome-Abdominal distention, history of MRSA pneumonia, pulmonary edema, anemia Patient continues to have bowel movements and passing flatus. Patient clinically improving. Patient H&H dropped a little 8.6 and 28. Continue to follow WBC is back to normal. C. difficile was negative. Continue with current management. Mckeon- Patient laying in bed comfortable. +bm and continues to have flatus. wbc down to normal. hgb 8.6 no nursing concerns. No family at bedside general no acute distress resting comfortable in bed heart reg lungs nonlabored abdomen soft slight distention no guarding or rebounding no organomegaly, nontender ext nontender sleeping assessment as above continue bowel regimen clinically continues to improve anemia continue to follow hgb Clinical Quality Measures DVT/VTE Risk/Contraindication: Risk Factor Score Per Nursin RFS Level Per Nursing on Admit: 4+=Very High ALF CARPENTER APRN Aug 21, 2016 8:31 am THOMAS MCKEON DO Aug 21, 2016 8:46 am
[2016-08-21] MEDS: DONEPEZIL 5 MG (ARICEPT) TAB PO SCH (09:01)
[2016-08-21] MEDS: MAGNESIUM OXIDE (MAG-OX)400 MG TAB PO SCH (09:01)
[2016-08-21] MEDS: POLYETHYLENE GLYCOL 17 GM (MIRALAX) PACK PO SCH (09:01)
[2016-08-21] MEDS: SENNA W/DOCUSATE (SENOKOT S) TABLET PO SCH (09:01)
[2016-08-21] MEDS ORDERED: FURO-125 PO (09:06)
[2016-08-21] MEDS ORDERED: PANT40TA3 PO (09:06)
[2016-08-21] MEDS ORDERED: POLY17PO23 PO (09:06)
[2016-08-21] MEDS ORDERED: METO10TA3 PO (09:06)
[2016-08-21] MEDS ORDERED: SENN-20 PO (09:06)
[2016-08-21] MEDS ORDERED: POTA10TA10 PO (09:06)
[2016-08-21] MEDS ORDERED: LORA0.5T PO (09:06)
--- NOTE | 2016-08-21 09:08 | Discharge Inst-Complex ---
PDI Med Rec & Follow Up Appt. New Medications: Furosemide (Lasix) 20 Mg Tablet 20 MG PO DAILY for 30 Days, #30 TAB Potassium Chloride (Potassium Chloride) 10 Meq Tablet.er 10 MEQ PO Q48H for 30 Days, #15 TAB Metoclopramide HCl (Metoclopramide HCl) 10 Mg Tablet 5 MG PO ACHS for 30 Days, #120 TAB 2 Refills Pantoprazole Sodium (Pantoprazole Sodium) 40 Mg Tablet.dr 40 MG PO BID@0700,2100 for 30 Days, #60 TAB 3 Refills Polyethylene Glycol 3350 (Polyethylene Glycol 3350) 17 Gm Powd.pack 17 GM PO BID for 30 Days, #60 EACH 3 Refills Sennosides/Docusate Sodium (Senna-Time S Tablet) 1 Each Tablet 1 EA PO BID for 30 Days, #60 TAB 3 Refills Continued Medications: Acetaminophen (Acetaminophen) 500 Mg Tablet 500 MG PO BID PRN for PAIN-MILD, TAB Acetaminophen (Acetaminophen) 500 Mg Tablet 1000 MG PO Q8H PRN for TEMP>100.5/SEVERE PAIN, TAB Albuterol Sulfate (Ventolin Hfa) 18 Gm Hfa.aer.ad 2 PUFF INH QID PRN for SHORTNESS OF BREATH, INHALER Amlodipine Besylate (Amlodipine Besylate) 5 Mg Tablet 5 MG PO BID, TAB Budesonide/Formoterol Fumarate (Symbicort 160-4.5 Mcg Inhaler) 10.2 Gm Hfa.aer.ad 2 PUFF IH BID, INHALER Divalproex Sodium (Depakote Sprinkle) 125 Mg Cap 125 MG PO Q6H PRN for AGITATION, CAP Donepezil HCl (Aricept) 5 Mg Tablet 5 MG PO DAILY, TAB Ipratropium/Albuterol Sulfate (Iprat-Albut 0.5-3(2.5) mg/3 ml) 3 Ml Ampul.neb 3 ML NEB QID, EACH Ipratropium/Albuterol Sulfate (Iprat-Albut 0.5-3(2.5) mg/3 ml) 3 Ml Ampul.neb 3 ML NEB Q6H PRN for SHORTNESS OF BREATH, EACH Lorazepam (Lorazepam) 0.5 Mg Tablet 0.5 MG PO Q4H PRN for MILD AGITATION for 30 Days, #30 TAB 3 Refills (This prescription has been renewed) Mag Hydrox/Al Hydrox/Simeth (Mylanta Suspension) 30 Ml Oral.susp 30 ML PO Q4H PRN for INDIGESTION, ML Melatonin/Pyridoxine (Melatonin 3 mg Tablet) 1 Each Tablet 6 MG PO HS, TAB TAKES 2 (3MG) TABLETS Menthol/Lanolin/Calamine/Znox (Calmoseptine Ointment) 71 Gm Oint TP QID PRN for EXCORIATION, TUBE Montelukast Sodium (Singulair) 10 Mg Tablet 10 MG PO DAILY, TAB Tamsulosin HCl (Flomax) 0.4 Mg Cap 0.4 MG PO 1800, CAP Discontinued Medications: Aspirin (Aspirin 325 Mg Tab) 325 Mg Tab 325 MG PO DAILY, TAB Bisacodyl (Dulcolax) 5 Mg Tablet.dr 5 MG PO HS PRN for CONSTIPATION-4TH LINE, TAB Carvedilol (Carvedilol) 3.125 Mg Tablet 3.125 MG PO BID, TAB Furosemide (Furosemide) 20 Mg Tablet 20 MG PO MoWeFr, TAB Lactobacillus Acidophilus (Acidophilus) 1 Each Capsule 1 CAP PO TID for 10 Days, CAP END DATE 08-13-16 Lactulose (Lactulose) 20 Gm/30 Ml Solution 20 GM PO BID, EA Lorazepam (Lorazepam) 0.5 Mg Tablet 1 MG PO Q4H PRN for SEVERE AGITATION/AGGRESSIVE, TAB TAKES 2 (0.5MG) TABLETS Pantoprazole Sodium (Pantoprazole Sodium) 40 Mg Tablet.dr 40 MG PO DAILY, TAB Polyethylene Glycol 3350 (Miralax) 17 Gm Powd.pack 17 GM PO Q3H PRN for CONSTIPATION-2ND LINE, EACH Trazodone HCl (Trazodone HCl) 50 Mg Tablet 125 MG PO HS, TAB TAKES 2 & 1/2 (50MG) TABLETS Prescription: Transmitted to Pharmacy Activity, Diet and PDI Resume Normal Activity: Yes Discharge Diet: Regular Diet Driving Instructions: No Driving/Refer to Return to The Hospital For: CALL HOSPICE PRIOR TO ANY TRANSFER TO HOSPITAL OR PRIOR TO CALLING AMBULANCE Symptoms to Reoprt to : Appetite Changes, Fever Over 101 Degrees F For Problems or Questions: Contact Your Physician KEVIN HARKINS MD Aug 21, 2016 09:08
--- NOTE | 2016-08-21 09:16 | Discharge Summary ---
Diagnosis/Chief Complaint Date of Admission Aug 07, 2016 at 21:25 Date of Discharge Discharge Date: Aug 21, 2016 Discharge Time: 1130 Admission Diagnosis Admission Diagnosis PNEUMONIA COPD ANEMIA CHF HX OF THROAT CANCER DEMENTIA WITH BEHAVIORS HYPOKALEMIA HYPOXEMIA HYPERTENSION CONSTIPATION BPH INSOMNIA Discharge Diagnosis PNEUMONIA COPD ANEMIA CHF HX OF THROAT CANCER DEMENTIA WITH BEHAVIORS HYPOKALEMIA HYPOXEMIA HYPERTENSION CONSTIPATION BPH INSOMNIA Reason Hospital Visit PT IS AN 81 Y/O MALE WHO WAS RECENTLY ADMITTED TO THE HOSPITAL WITH HEART FAILURE. HE WAS AT HIS DETENTION AND STARTED TO HAVE ACUTE SHORTNESS OF BREATH. HE WAS AFEBRILE, BUT HAD OXYGEN SATURATION IN THE 70'S AND WAS TRANSPORTED TO THE HOSPITAL FOR FURTHER EVALUATION. HE WAS FOUND TO HAVE HYPOXEMIA, HEART FAILURE AND WAS THUS RE-ADMITTED TO THE HOSPITAL Discharge Summary Discharge Physical Examination Allergies: Coded Allergies: prednisone (Unverified Allergy, Mild, SOB, 09/15/08) Vitals & I&Os Vital Signs Date Time Temp Pulse Resp B/P (MAP) Pulse Ox O2 Delivery O2 Flow Rate FiO2 08/21/16 08:00 96.0 72 20 146/78 97 High Flow N/C 8.00 08/20/16 20:00 45 General Appearance: Alert, No Acute Distress, Other (ORIENTED TO PERSON, NOT PLACE OR TIME) HEENT: PERRLA Respiratory: Other (CRACKLES IN BASES, POOR EFFORT, POOR AIR MOVEMENT) Cardiovascular: Regular Rate, Other (III/ NII) Abdominal: Normal Bowel Sounds, Soft, No Tenderness Extremities: No Clubbing, No Cyanosis Skin: No Rashes, No Breakdown Neuro: Normal Speech Psych/Mental Status: Mental Status NL, Mood NL Hospital Course PNEUMONIA WITH CHRONIC COPD MRSA IN SPUTUM - CHEST XRAY SHOWED PT HAS PNEUMONIA - VANCOMYCIN FINISHED ON 08/16/16 WITH IMPROVED SYMPTOMS, RESOLUTION OF PNEUMONIA CHF/PULMONARY EDEMA - CONTINUE WITH LASIX - BNP HAS IMPROVED. - TRANSITIONED TO ORAL LASIX ANEMIA - - MONITOR CBC TOMORROW- PT RECEIVED BLOOD TRANSFUSION - HGB STABLE HX OF THROAT CANCER- SUPPORTIVE CARE DEMENTIA WITH BEHAVIORS - CONTINUE WITH ARICEPT. HYPOKALEMIA - TREATED WITH POTASSIUM SUPPLEMENTATION PRN. HYPOXEMIA - IMPROVED ON CURRENT OXYGEN THERAPY - STARTED INCENTIVE SPIROMETRY HYPERTENSION - CHRONIC - MONITOR BLOOD PRESSURE READINGS. - RESTART [facility] OUTPATIENT ILEUS - IMPROVED - KUB OF ABDOMEN SHOWED IMPROVED BOWEL GAS PATTERN - RETURN TO REGULAR DIET BPH - ALFUZOSIN IN HOSPITAL PT NOT SEPTIC - THEREFORE DID NOT START ON SEPSIS PROTOCOL WITH FLUIDS - PT HAS ACUTE PULMONARY EDEMA AND STARTING ON IV FLUIDS AT SEPSIS PROTOCOL RATE WOULD HAVE CAUSED WORSENING PULMONARY EDEMA AND POSSIBLE PATIENT DEMISE. PT'S DPOA - STEP-DAUGHTER - RADHA - WE DISCUSSED TRDUY'S OVERALL PROGNOSIS - HE IS NOT A SURGICAL CANDIDATE, AND AT THIS POINT IN TIME, WE WILL PURSUE HOSPICE WE CANNOT REASONABLY EXPECT FOR ART TO HAVE FURTHER GAINS IN FUNCTION , IMPROVEMENT IN OVERALL HEALTH. HE WILL BE DISCHARGED BACK TO [facility]. Pending Labs Laboratory Tests 08/21/16 04:10: White Blood Count 10.2, Red Blood Count 2.93, Hemoglobin 8.6, Hematocrit 28, Mean Corpuscular Volume 94, Mean Corpuscular Hemoglobin 29, Mean Corpuscular Hemoglobin Concent 31, Red Cell Distribution Width 14.8, Platelet Count 273, Mean Platelet Volume 9.4, Neutrophils (%) (Auto) 80, Lymphocytes (%) (Auto) 11, Monocytes (%) (Auto) 6, Eosinophils (%) (Auto) 3, Basophils (%) (Auto) 0, Neutrophils # (Auto) 8.1, Lymphocytes # (Auto) 1.2, Monocytes # (Auto) 0.7, Eosinophils # (Auto) 0.3, Basophils # (Auto) 0.0, Sodium Level 139, Potassium Level 4.4, Chloride Level 98, Carbon Dioxide Level 30, Anion Gap 11, Blood Urea Nitrogen 53, Creatinine 2.02, Estimat Glomerular Filtration Rate 32, BUN/ Creatinine Ratio 26, Glucose Level 101, Calcium Level 9.2, Total Bilirubin 0.5, Aspartate Amino Transf (AST/SGOT) 85, Alanine Aminotransferase (ALT/SGPT) 128, Alkaline Phosphatase 89, Total Protein 6.0, Albumin 2.7 Discharge Condition at discharge FAIR Instructions to patient/family Please see electonic discharge instructions given to patient. Discharge Medications Reviewed and agree with Discharge Medication list on patient's Discharge Instruction sheet Medication List: Active Scripts Active Potassium Chloride 10 Meq Tablet.er 10 Meq PO Q48H 30 Days Lasix (Furosemide) 20 Mg Tablet 20 Mg PO DAILY 30 Days Pantoprazole Sodium 40 Mg Tablet.dr 40 Mg PO BID@0700,2100 30 Days Metoclopramide HCl 10 Mg Tablet 5 Mg PO ACHS 30 Days Senna-Time S Tablet (Sennosides/Docusate Sodium) 1 Each Tablet 1 Ea PO BID 30 Days Polyethylene Glycol 3350 17 Gm Powd.pack 17 Gm PO BID 30 Days Lorazepam 0.5 Mg Tablet 0.5 Mg PO Q4H PRN 30 Days Reported Symbicort 160-4.5 Mcg Inhaler (Budesonide/Formoterol Fumarate) 10.2 Gm Hfa.aer.ad 2 Puff IH BID Iprat-Albut 0.5-3(2.5) mg/3 ml (Ipratropium/Albuterol Sulfate) 3 Ml Ampul.neb 3 Ml NEB Q6H PRN Calmoseptine Ointment (Menthol/Lanolin/Calamine/Znox) 71 Gm Oint TP QID PRN Ventolin Hfa (Albuterol Sulfate) 18 Gm Hfa.aer.ad 2 Puff INH QID PRN Amlodipine Besylate 5 Mg Tablet 5 Mg PO BID Mylanta Suspension (Al Hydrox/Mg Hydrox/Simethicone) 30 Ml Oral.susp 30 Ml PO Q4H PRN Acetaminophen 500 Mg Tablet 1,000 Mg PO Q8H PRN Acetaminophen 500 Mg Tablet 500 Mg PO BID PRN Depakote Sprinkle (Divalproex Sodium) 125 Mg Cap 125 Mg PO Q6H PRN Singulair (Montelukast Sodium) 10 Mg Tablet 10 Mg PO DAILY Melatonin 3 mg Tablet (Melatonin/Pyridoxine) 1 Each Tablet 6 Mg PO HS TAKES 2 (3MG) TABLETS Flomax (Tamsulosin HCl) 0.4 Mg Cap 0.4 Mg PO 1800 Aricept (Donepezil HCl) 5 Mg Tablet 5 Mg PO DAILY Iprat-Albut 0.5-3(2.5) mg/3 ml (Ipratropium/Albuterol Sulfate) 3 Ml Ampul.neb 3 Ml NEB QID Clinical Quality Measures DVT/VTE Risk/Contraindication: Risk Factor Score Per Nursin RFS Level Per Nursing on Admit: 4+=Very High KEVIN HARKINS MD Aug 21, 2016 09:16
== END 2016-08-21 14:25 | disposition hospice, home (50) | DRG 981 ==
LOC: EDUNIT# 20:40 → ER 20:42 → ICU 21:25 → 4TH 08-11 09:42 → ENPENDDIS 08-21 11:30
PROVIDERS: ADMIT Family Medicine; ATTEND Family Medicine
PROC: 0D9E8ZZ Drainage of Large Intestine, Via Natural or Artificial Opening Endoscopic (ICD-10-PCS; principal; 2016-08-11 15:00)
DX: K56.69 Other intestinal obstruction; G40.909 Epilepsy, unspecified, not intractable, without status epilepticus; F41.9 Anxiety disorder, unspecified; R09.02 Hypoxemia; I50.9 Heart failure, unspecified; Z66 Do not resuscitate; J15.212 Pneumonia due to Methicillin resistant Staphylococcus aureus; N17.9 Acute kidney failure, unspecified; K21.9 Gastro-esophageal reflux disease without esophagitis; K59.8 Other specified functional intestinal disorders; N40.0 Benign prostatic hyperplasia without lower urinary tract symptoms; J44.0 Chronic obstructive pulmonary disease with (acute) lower respiratory infection; D64.9 Anemia, unspecified; J81.0 Acute pulmonary edema; R73.9 Hyperglycemia, unspecified; I11.0 Hypertensive heart disease with heart failure; Z85.819 Personal history of malignant neoplasm of unspecified site of lip, oral cavity, and pharynx; Z85.828 Personal history of other malignant neoplasm of skin; Z87.891 Personal history of nicotine dependence; E83.42 Hypomagnesemia; K59.00 Constipation, unspecified; E87.6 Hypokalemia; F03.91 Unspecified dementia, unspecified severity, with behavioral disturbance; E78.00 Pure hypercholesterolemia, unspecified; G47.00 Insomnia, unspecified
CPT/HCPCS: 36415; 36569; 71010; 71020; 74000; 74020; 74150; 76937; 80048; 80053; 80069; 80202; 81000; 82550; 82553; 82805; 83605; 83735; 83880; 84100; 84484; 85007; 85014; 85018; 85025; 85027; 85610; 85730; 86850; 86900; 86901; 86920; 87040; 87070; 87077; 87186; 87205; 87324; 87449; 93005; 93041; 94640; 94660; 94664; 94760; 96374; 96375